=== PATIENT | female | born 1935 | race Caucasian/White ===

== ENCOUNTER → 2018-02-07 09:00 | Outpatient (CLI) | payer MEDICARE, OTHER, SELFPAY ==
[2018-02-07 09:11] LABS: Bacteria Urine None Seen; RBC Urine None Seen (0-5/HPF)
[2018-02-07 10:05] LABS: BUN Creatinine Ratio 23.3 (6-22); Blood Urea Nitrogen 21 mg/dL (7-17); Calcium 10.1 mg/dL (8.4-10.2); Carbon Dioxide 24 mmol/L (22-32); Chloride 108 mmol/L (98-107); Estimated Glomerular Filt Rate 59.8 mL/min (>60); Glucose 126 mg/dL (80-110); HEMOLYSIS < 15 (0-50); Potassium 4.2 mmol/L (3.4-5.1); Sodium 144 mmol/L (137-145)
[2018-02-07 10:11] LABS: Hemoglobin A1C% w Est Avg Glu 5.6 % (4.0-6.0)
[2018-02-07 10:17] LABS: Add Manual Diff / Slide Review NO; Basophils Percent Auto 0.8 % (0-2); Eosinophils Percent Auto 1.7 % (2-4); Hematocrit 39.1 % (36-46); Hemoglobin 12.8 g/dL (12.0-16.0); Lymphocytes Percent Auto 24.5 % (25-40); Mean Corpuscular HGB Conc 32.8 % (30-36); Mean Corpuscular Hemoglobin 30.2 PG (26-34); Mean Corpuscular Volume 92.1 fL (80-100); Monocytes Percent Auto 7.6 % (3-14); Neutrophils Absolute Auto 4300 /uL (3000-5900); Neutrophils Percent Auto 65.4 % (50-75); Platelet Count 291 X10^3/uL (150-400); Red Blood Cell Count 4.25 X10^6/uL (4.0-5.2); Red Cell Distribution Width 15.8 % (11.6-14.8); White Blood Cell Count 6.5 X10^3/uL (4.5-11.0)
[2018-02-07 11:19] LABS: Appearance Urine UA CLEAR; Bilirubin Urine UA NEGATIVE (NEGATIVE); Color Urine UA YELLOW; Glucose Urine UA NEGATIVE (Normal); Ketones Urine UA NEGATIVE (NEGATIVE); Leukocyte Esterase Urine UA TRACE (NEGATIVE); Nitrite Urine UA NEGATIVE (Negative); Occult Blood Urine UA NEGATIVE (Negative); Protein Urine UA NEGATIVE (Negative); Specific Gravity Urine UA 1.015 (1.000-1.035); Urobilinogen Urine UA 0.2 E.U./dL (0.2); pH Urine UA 6.5 (4.5-8.0)
[2018-02-07 12:01] LABS: Culture Indicated Urine Cult Not Indicated; Squamous Epithelial Cell Urine 5-10 /HPF; WBC Urine 5-10/HPF (0-5/HPF)
== END ==
PROVIDERS: Family Provider Physician Assistant; PCP Physician Assistant; Visit Provider Orthopaedic Surgery
DX: Z01.818 Encounter for other preprocedural examination (principal); Z01.812 Encounter for preprocedural laboratory examination; N39.9 Disorder of urinary system, unspecified; R73.09 Other abnormal glucose
CPT/HCPCS: 36415; 80048; 81001; 83036; 85025; 93005; 93010

== ENCOUNTER → 2018-02-11 12:44 | Outpatient (CLI) | payer MEDICARE, OTHER, SELFPAY ==
--- NOTE | 2018-02-11 | DI.MRI.S_ITS ---
PROCEDURE: MR KNEE RT WO CON INDICATIONS: UNILATERAL PRIMARY OSTEOARTHRITIS OF RIGHT KNEE TECHNIQUE: Noncontrast sagittal PD fast spin echo and T2 fast spin echo with fat saturation, sagittal 3-D FLASH with fat saturation; coronal T1 spin echo and PD fast spin echo with fat saturation, and axial PD fast spin echo with fat saturation through the knee. COMPARISON: [facility] [place], CR, XR KNEE ARTHRITIC SERIES RT, 01/19/2018, 9:58. FINDINGS: Image quality: Excellent. Menisci: Amorphous signal intensity within the medial meniscal body and posterior horn is present, demonstrating inferior articular surface extension, indicating degenerative tearing. There is severe fragmentation of the anterior and posterior horns of the lateral meniscus, compatible with severe multifocal degenerative tearing. Cruciate ligaments: The posterior cruciate ligament is intact. Anterior cruciate ligament demonstrates full thickness tearing. Medial structures: The medial collateral ligament appears intact. Visualized portions of the pes anserinus tendons appear normal. No abnormal bursal fluid. Lateral structures: The lateral collateral ligament demonstrates moderate signal loss at its femoral insertion site. The long and short heads of the biceps femoris tendon appear intact. The popliteus tendon appears normal. Iliotibial band appears normal. Anterior structures: The quadriceps and patellar tendons appear intact. Patellar alignment is normal. No femoral trochlear dysplasia or ventral trochlear prominence. No edema in the infrapatellar fat pad. Bones and cartilage: No bone marrow contusions or fractures. There is severe tricompartmental periarticular osteophyte formation. Multifocal regions of moderate to high grade articular cartilage loss overlying the weightbearing aspects of the medial femoral condyle. Mild diffuse articular cartilage loss overlies the weightbearing aspects of the medial tibial plateau. Severe diffuse articular cartilage loss overlies the weightbearing aspects of the lateral femoral condyle and lateral tibial plateau. There is focal high grade articular cartilage loss overlying the patellar apex. Joint space: There is a moderate knee joint effusion and a small Oro's cyst. Several intra-articular loose bodies are present, largest of which are in the posterior central aspect of the knee joint measuring 8 mm, as well as the lateral and superior aspect of the posterior knee joint measuring 10 mm. Normal appearing synovial plicae are incidentally noted. IMPRESSION: 1. Severe tricompartmental osteoarthritis with associated articular cartilage loss. 2. Full thickness anterior cruciate ligament tearing. 3. Medial and lateral meniscal tearing. 4. Knee joint effusion, Oro's cyst, and intra-articular loose bodies. 5. Partial-thickness lateral collateral ligament tear. Dictated by: Juan Izquierdo M.D. on 02/11/2018 at 13:48 Approved by: Juan Izquierdo M.D. on 02/11/2018 at 13:53
== END ==
PROVIDERS: Family Provider Physician Assistant; PCP Physician Assistant; Visit Provider Orthopaedic Surgery
DX: M17.11 Unilateral primary osteoarthritis, right knee (principal); M23.261 Derangement of other lateral meniscus due to old tear or injury, right knee; M23.321 Other meniscus derangements, posterior horn of medial meniscus, right knee; S83.511A Sprain of anterior cruciate ligament of right knee, initial encounter; S83.421A Sprain of lateral collateral ligament of right knee, initial encounter; M25.461 Effusion, right knee; M71.21 Synovial cyst of popliteal space [Baker], right knee
CPT/HCPCS: 73721

== ENCOUNTER → 2018-08-16 07:11 | Outpatient (CLI) | payer OTHER, SELFPAY ==
[2018-08-16 08:20] LABS: Alanine Aminotransferase 24 IU/L (9-52); Albumin 4.1 g/dL (3.5-5.0); Albumin Globulin Ratio 1.2 (1.0-2.8); Alkaline Phosphatase 129 U/L (38-126); Aspartate Aminotransferase 24 IU/L (14-36); BUN Creatinine Ratio 24.4 (6-22); Bilirubin Total 0.6 mg/dL (0.2-1.3); Blood Urea Nitrogen 22 mg/dL (7-17); Carbon Dioxide 21 mmol/L (22-32); Chloride 108 mmol/L (98-107); Cholesterol 142 mg/dL (140-199); Estimated Glomerular Filt Rate 59.7 mL/min (>60); Globulin 3.3 g/dL (1.7-4.1); Glucose 113 mg/dL (80-110); HDL Cholesterol 53 mg/dL (40-60); HEMOLYSIS < 15 (0-50); LDL Cholesterol Calculated 61 mg/dL (<100); Potassium 3.7 mmol/L (3.4-5.1); Sodium 140 mmol/L (137-145); Total Protein 7.4 g/dL (6.3-8.2); Triglycerides 141 mg/dL (35-150)
[2018-08-16 08:46] LABS: Thyroid Stimulating Hormone 2.86 uIU/mL (0.47-4.68)
[2018-08-16 08:58] LABS: Creatinine Urine Random 37.8 mg/dL
[2018-08-16 09:01] LABS: Microalbumi Creatinin Ratio Ur 42.3 ug/mg CR (<30); Microalbumin Urine Random 1.6 mg/dL (0-1.6)
== END ==
PROVIDERS: PCP Physician Assistant; Visit Provider Physician Assistant
DX: E03.9 Hypothyroidism, unspecified (principal); E78.5 Hyperlipidemia, unspecified; I10 Essential (primary) hypertension
CPT/HCPCS: 36415; 80053; 80061; 82043; 82570; 84443

== ENCOUNTER 2018-09-02 06:30 | Emergency (ER) | payer OTHER, SELFPAY ==
[2018-09-02 06:30] VITALS: BP 141/76; PULSE 128; RESP 22; TEMP 36.4; O2SAT 94; BMI 30.9
[2018-09-02 07:22] VITALS: BP 115/99; PULSE 123; RESP 17; O2SAT 97
[2018-09-02 07:58] LABS: Add Manual Diff / Slide Review NO; Basophils Absolute Auto 0 /uL (0-100); Basophils Percent Auto 0.1 % (0-2); Eosinophils Absolute Auto 0 /uL (0-450); Eosinophils Percent Auto 0.1 % (2-4); Hematocrit 36.9 % (36-46); Lymphocytes Absolute Auto 500 /uL (1100-4500); Lymphocytes Percent Auto 6.4 % (25-40); Mean Corpuscular HGB Conc 32.4 % (30-36); Mean Corpuscular Hemoglobin 26.5 PG (26-34); Mean Corpuscular Volume 81.8 fL (80-100); Monocytes Absolute Auto 300 /uL (0-900); Monocytes Percent Auto 3.2 % (3-14); Neutrophils Absolute Auto 7600 /uL (1500-7000); Neutrophils Percent Auto 90.2 % (50-75); Platelet Count 315 X10^3/uL (150-400); Red Blood Cell Count 4.51 X10^6/uL (4.0-5.2); White Blood Cell Count 8.4 X10^3/uL (4.5-11.0)
[2018-09-02 08:02] VITALS: BP 131/96; PULSE 130; RESP 25; O2SAT 94
[2018-09-02 08:06] LABS: Appearance Urine UA CLEAR; Bilirubin Urine UA NEGATIVE (NEGATIVE); Color Urine UA YELLOW; Glucose Urine UA NEGATIVE (Negative); Ketones Urine UA NEGATIVE (NEGATIVE); Leukocyte Esterase Urine UA NEGATIVE (NEGATIVE); Nitrite Urine UA NEGATIVE (Negative); Occult Blood Urine UA 3+ (Negative); Protein Urine UA NEGATIVE (Negative); Urobilinogen Urine UA 0.2 E.U./dL (0.2); pH Urine UA 7.5 (4.5-8.0)
[2018-09-02 08:08] LABS: RBC Urine 10-30/HPF (0-5/HPF); WBC Urine 1-5/HPF (0-5/HPF)
[2018-09-02 08:09] LABS: Bacteria Urine Occasional (0-1); Culture Indicated Urine Cult Not Indicated; Squamous Epithelial Cell Urine 1-5 /HPF (0-5/HPF)
--- NOTE | 2018-09-02 08:13 | ED_ITS ---
HPI - Abdominal Pain General Chief Complaint: Abdominal Pain Stated Complaint: cramping, back ache Time Seen by Provider: 09/02/18 06:59 Source: patient and family Mode of arrival: ambulatory Limitations: no limitations History of Present Illness HPI narrative: Patient is a junior 83-year-old female presenting with now resolved abdominal pain. Apparently last night she had the worse abdominal pain she ever had she felt nauseous she did not throw up but it has now completely resolved. She is noted to be in AFib with RVR which she says is not new for her. She has not taken her morning meds yet she denies any chest pain or heart palpitations. For that is not the reason why she is here. She actually says sh chana feels fine. Daughter says that she was concerned last night and brought her in the morning. Patient said she did have some blood in her urine last week but it went away. She has had regular bowel movements. She overall has no complaints this morning. MD complaint: abdominal pain Pain Consistency: now resolved Quality: cramping Radiation: none Migration to: no migration Relieving factors: nothing Exacerbating factors: nothing Related Data Home Medications Medication Instructions Recorded Confirmed ASPIRIN (Aspirin EC) 81 mg PO Q DAY #0 09/16/10 02/01/18 [PROBIOTIC] 1 cap PO QDAY #0 12/09/15 02/01/18 acetaminophen 2 tab PO PRN PRN #0 07/28/16 02/01/18 cholecalciferol (vitamin D3) 1,000 unit PO QDAY #0 07/28/16 02/01/18 [Vitamin D3] multivitamin [Multiple Vitamins] 1 tab PO QDAY #0 08/06/16 02/01/18 [POTASSIUM GLUCONATE] 1,100 mg PO QDAY #0 01/11/17 02/01/18 latanoprost 0.005 % eye drops EYE-BOTH ml 02/01/18 02/01/18 Previous Rx's Medication Instructions Recorded Ketoconazole 2 % TOPICAL QDAY #60 gm 09/21/16 chlordiazepoxide-clidinium 5 1 cap PO TID PRN #30 cap 01/10/18 mg-2.5 mg capsule metoprolol succinate ER 50 mg 25 mg PO QDAY #45 ter 01/24/18 tablet,extended release 24 hr sertraline 100 mg PO Q DAY #90 tab 03/04/18 lorazepam 0.5 mg tablet 0.25 mg PO BID #30 tab 04/04/18 rivaroxaban 20 mg tablet 20 mg PO QDAY #90 tab 04/25/18 lovastatin 40 mg tablet 40 mg PO PM #90 tab 06/27/18 diltiazem CD 180 mg 180 mg PO DAILY #90 cap 07/18/18 capsule,extended release 24 hr levothyroxine 50 mcg tablet 50 mcg PO QDAY #90 tab 08/30/18 Allergies Allergy/AdvReac Type Severity Reaction Status Date / Time venom-wasp [WASP VENOM] Allergy Intermediate HIVES Verified 02/01/18 09:06 Sulfa (Sulfonamide AdvReac Mild LIPS Verified 02/01/18 09:06 Antibiotics) TINGLING [SULFA (SULFONAMIDE ANTIBIOTICS)] Review of Systems Review of Systems ROS Unobtainable: All systems reviewed & are unremarkable except as noted in HPI and below Constitutional Denies chills, Denies fever(s), Denies lethargy and Denies weakness Eyes Denies change in vision, Denies eye discharge, Denies irritation and Denies loss of vision ENT Ears, Nose, Mouth, and Throat: Denies change in voice, Denies neck pain and D enies sore throat Cardiovascular Reports as per HPI, Denies dyspnea and Denies dyspnea on exertion Respiratory Denies cough, Denies dyspnea, Denies dyspnea on exertion and Denies wheezing Gastrointestinal Gastrointestinal: Reports as per HPI, Reports abdominal pain, Denies diarrhea, Reports nausea and Denies vomiting Genitourinary Denies hematuria, Denies flank pain, Denies urinary incontinence and Denies urinary urgency Musculoskeletal Denies neck pain Integumentary/Breasts Denies pruritus, Denies erythema, Denies rash and Denies wounds Neurologic Denies confusion, Denies loss of vision and Denies weakness Psychiatric Denies anxiety, Denies confusion, Denies depression, Denies homicidal ideation and Denies suicidal ideation Allergic/Immunologic Denies wheezing [facility] Medical History (Updated 09/02/18 @ 09:06 by Tana Young DO) Anxiety (Chronic) Atrial fibrillation (Chronic ~07/2016) Depression (Chronic) Glaucoma (Chronic) Hyperlipidemia (Chronic) Hypertension (Chronic) Hypothyroidism (Chronic) Osteoarthritis (Chronic) Basal cell carcinoma (Resolved) Chickenpox (Resolved) Measles (Resolved) Surgical History (Updated 01/15/18 @ 09:50 by Cori Parish LPN) Hx of basal cell carcinoma excision (Resolved) Family History (Updated 01/15/18 @ 09:52 by Cori Parish LPN) Father Diabetes mellitus Mother No problems noted. Grandfather No problems noted. Grandfather Diabetes mellitus Social History Smoking Status: Never smoker second hand exposure: No alcohol intake: never substance use type: does not use Family History (Updated 01/15/18 @ 09:52 by Cori Parish LPN) Father Diabetes mellitus Mother No problems noted. Grandfather No problems noted. Grandfather Diabetes mellitus Social History Smoking Status: Never smoker second hand exposure: No alcohol intake: never substance use type: does not use Exam Initial Vital Signs Initial Vital Signs: Vital Signs Temperature 97.5 F L 09/02/18 06:30 Pulse Rate 128 H 09/02/18 06:30 Respiratory Rate 22 09/02/18 06:30 Blood Pressure 141/76 H 09/02/18 06:30 Pulse Oximetry 94 09/02/18 06:30 GENERAL: Alert well-appearing very pleasant elderly female and in [no acute] distress. HEENT: Head atraumatic,EOMI, pupils reactive, CARDIOVASCULAR: Regular rate and rhythm without murmurs, rubs or gallops. RESPIRATORY: Breath sounds equal bilaterally, no wheezes rales or rhonchi. ABDOMEN: Soft, nontender. Normoactive bowel sounds all 4 quadrants. No guarding or rebound. : No CVA tenderness EXTREMITIES: Normal range of motion, no clubbing or edema. Neurovascularly intact NEUROLOGICAL: Alert and oriented x4.Normal gait and speech. Cranial nerves II through XII grossly intact. SKIN: Warm, dry, no laceration, no petechiae, no rashes or lesions. Course Orders Ordered: ED Orders 09/02/18 07:02 EKG-12 Lead Stat 09/02/18 07:50 Complete Blood Count AUTO DIFF Stat 09/02/18 07:52 Urinalysis and Microscopic Stat 09/02/18 08:15 Comprehensive Metabolic Panel Stat Lipase Stat Discontinued Medications Diltiazem HCl (Cardizem Cd) 180 mg PO NOW ONE Stop: 09/02/18 08:17 Last Admin: 09/02/18 08:31 Dose: 180 mg Metoprolol Succinate (Toprol Xl) 50 mg PO NOW ONE Stop: 09/02/18 08:17 Last Admin: 09/02/18 08:31 Dose: 50 mg Vital Signs - 8 hr 09/02/18 06:30 09/02/18 07:22 09/02/18 08:02 Temperature 97.5 F L Pulse Rate 128 H 123 H 130 H Respiratory Rate 22 17 25 H Blood Pressure 141/76 H Blood Pressure [Left Arm] 115/99 H 131/96 H Pulse Oximetry 94 97 94 09/02/18 08:31 09/02/18 09:02 09/02/18 09:21 Temperature Pulse Rate 127 H 113 H 119 H Respiratory Rate 18 18 Blood Pressure 137/89 116/93 H Blood Pressure [Left Arm] 116/93 H Pulse Oximetry 95 95 MDM - Abdominal Pain Lab Data Attestation: I reviewed the patient's lab results. Result diagrams: 09/02/18 07:50 09/02/18 08:15 Lab Results 09/02/18 09/02/18 09/02/18 Range/Units 07:50 07:52 08:15 WBC 8.4 (4.5-11.0) X10^3/uL RBC 4.51 (4.0-5.2) X10^6/uL Hgb 12.0 (12.0-16.0) g/dL Hct 36.9 (36-46) % MCV 81.8 (80-100) fL MCH 26.5 (26-34) PG MCHC 32.4 (30-36) % RDW 19.0 H (11.6-14.8) % Plt Count 315 (150-400) X10^3/uL Neut % (Auto) 90.2 H (50-75) % Lymph % (Auto) 6.4 L (25-40) % [place] % (Auto) 3.2 (3-14) % Eos % (Auto) 0.1 L (2-4) % Baso % (Auto) 0.1 (0-2) % Neut # (Auto) 7600 H (8722-3549) /uL Lymph # (Auto) 500 L (6821-8588) /uL [place] # (Auto) 300 (0-900) /uL Eos # (Auto) 0 (0-450) /uL Baso # (Auto) 0 (0-100) /uL Sodium 140 (137-145) mmol/L Potassium 4.2 (3.4-5.1) mmol/L Chloride 106 (98-107) mmol/L Carbon Dioxide 22 (22-32) mmol/L BUN 21 H (7-17) mg/dL Creatinine 0.90 (0.52-1.04) mg/dL Estimated GFR 59.7 L (>60) mL/min BUN/Creatinine Ratio 23.3 H (6-22) Glucose 142 H (80-110) mg/dL Calcium 10.3 H (8.4-10.2) mg/dL Total Bilirubin 0.7 (0.2-1.3) mg/dL AST 26 (14-36) IU/L ALT 19 (9-52) IU/L Alkaline Phosphatase 124 (38-126) U/L Total Protein 7.2 (6.3-8.2) g/dL Albumin 4.0 (3.5-5.0) g/dL Globulin 3.2 (1.7-4.1) g/dL Albumin/Globulin Ratio 1.3 (1.0-2.8) Lipase 137 (23-300) U/L Urine Color Yellow Urine Appearance Clear Urine pH 7.5 (4.5-8.0) Ur Specific [place] 1.020 (1.000-1.035) Urine Protein Negative (Negative) Urine Glucose (UA) Negative (Negative) g/dL Urine Ketones Negative (NEGATIVE) Urine Occult Blood 3+ H (Negative) Urine Nitrate Negative (Negative) Urine Bilirubin Negative (NEGATIVE) Urine Urobilinogen 0.2 (0.2) E.U./dL Ur Leukocyte Esterase Negative (NEGATIVE) Urine RBC 10-30/hpf H (0-5/HPF) Urine WBC 1-5/hpf (0-5/HPF) Ur Squamous Epith Cells 1-5 /hpf (0-5/HPF) Urine Bacteria Occasional (0-1) (None) Ur Culture Indicated? Cult not indicated Point of care testing: Urine Dip Bedside Urine Glucose Negative Bedside Urine Bilirubin - Negative Bedside Urine Ketone - Negative Urine Specific [place] 1.020 Bedside Urine Occult Blood +++ Bedside Urine pH 7.0 Bedside Urine Protein - Negative Bedside Urine Urobilinogen - Negative Bedside Urine Nitrite - Negative Bedside Urine Leukocytes +/- 15 Esterase ECG Data Attestation: I personally reviewed and interpreted this ECG as follows: Prior ECG tracings: available for review Interpretation: Atrial fibrillation rate [address] changes similar to previous EKGs MDM Narrative Medical decision making narrative: PATIENT IS GIVEN HER MORNING METOPROLOL AND CARDIZEM TO HELP CONTROL HER HEART RATE ALTHOUGH SHE IS COMPLETELY ASYMPTOMATIC. HER ABDOMINAL PAIN HAS COMPLETELY RESOLVED NOW. BLOOD WORK IS REASSURING ABDOMEN IS REASSESSED IT IS SOFT AND NONTENDER. AT THIS TIME I do not believe patient to need any imaging. I discussed this with both daughter and patient. They agree. Patient will be discharged home, on advised her to return back if her pain is worse and to come at the time of pain at which point imaging may be required. Discharge Plan Departure Patient Disposition: Home Clinical Impression: Abdominal pain Qualifiers: Abdominal location: lower abdomen, unspecified Qualified Code(s): R10.30 - Lower abdominal pain, unspecified Discharge Date/Time: 09/02/18 09:22 Interventions: ED Discharge Assessment Last Done: 09/02/18 09:21 Instructions: DI for Abdominal Pain-Adult Activity Restrictions/Additional Instructions: *You have been diagnosed with abdominal pain *What to do: At this time her blood work is reassuring. No sign of bladder infection. No further abdominal pain all at this time no imaging indicated. However if her symptoms are worsening or persisting he may require imaging. *Continue to take medications as directed -you were given metoprolol and Cardizem in the ED -please take your Xarelto and other morning medications as previously prescribed *Follow up with your primary care provider in 2-3 days *Return to ER if you should have increasing abdominal pain persistent vomiting or any new, worsening or concerning symptoms Prescriptions: No Action latanoprost [Xalatan] 0.005 % drops EYE-BOTH RF: 0 ASPIRIN (Aspirin EC) 81 mg PO Q DAY Qty: 0 RF: 0 [PROBIOTIC] 1 cap PO QDAY Qty: 0 RF: 0 acetaminophen 650 MG tablet extended release 2 tab PO PRN PRNQty: 0 RF: 0 cholecalciferol (vitamin D3) [Vitamin D3] 1,000 UNIT tablet 1,000 unit PO QDAY Qty: 0 RF: 0 multivitamin [Multiple Vitamins] 1 EACH tablet 1 tab PO QDAY Qty: 0 RF: 0 Ketoconazole 2 % Topical QDAY Qty: 60 RF: 2 [POTASSIUM GLUCONATE] 1,100 mg PO QDAY Qty: 0 RF: 0 chlordiazepoxide-clidinium [Librax (with clidinium)] 5-2.5 mg capsule 1 cap PO TID PRN (Reason: IBS) Qty: 30 RF: 3 metoprolol succinate 50 mg tablet extended release 24 hr 25 mg PO QDAY Qty: 45 RF: 0 sertraline 100 mg tablet 100 mg PO Q DAY Qty: 90 RF: 4 lorazepam [Ativan] 0.5 mg tablet 0.25 mg PO BID Qty: 30 RF: 3 rivaroxaban [Xarelto] 20 mg tablet 20 mg PO QDAY Qty: 90 RF: 0 lovastatin 40 mg tablet 40 mg PO PM Qty: 90 RF: 0 diltiazem HCl [Cartia XT] 180 mg capsule,extended release 24hr 180 mg PO DAILY Qty: 90 RF: 3 levothyroxine [Synthroid] 50 mcg tablet 50 mcg PO QDAY Qty: 90 RF: 0 Referrals: Alena Roman PA-C [Primary Care Provider] -
[2018-09-02 08:31] VITALS: BP 137/89; PULSE 127
[2018-09-02] MEDS: METOPROLOL ER 50 MG TABLET PO (08:31)
[2018-09-02] MEDS: dilTIAZem CD 180 MG CAP PO (08:31)
[2018-09-02 08:34] LABS: Alanine Aminotransferase 19 IU/L (9-52); Albumin Globulin Ratio 1.3 (1.0-2.8); Alkaline Phosphatase 124 U/L (38-126); Aspartate Aminotransferase 26 IU/L (14-36); BUN Creatinine Ratio 23.3 (6-22); Bilirubin Total 0.7 mg/dL (0.2-1.3); Blood Urea Nitrogen 21 mg/dL (7-17); Calcium 10.3 mg/dL (8.4-10.2); Carbon Dioxide 22 mmol/L (22-32); Chloride 106 mmol/L (98-107); Estimated Glomerular Filt Rate 59.7 mL/min (>60); Globulin 3.2 g/dL (1.7-4.1); Glucose 142 mg/dL (80-110); HEMOLYSIS < 15 (0-50); Lipase 137 U/L (23-300); Potassium 4.2 mmol/L (3.4-5.1); Sodium 140 mmol/L (137-145); Total Protein 7.2 g/dL (6.3-8.2)
--- NOTE | 2018-09-02 08:40 | PC.NURSE ---
Daughter is very questioning of staff. Comments made in regards to whether and IV was necessary after blood had to be redrawn. Critical of staff
[2018-09-02 09:02] VITALS: BP 116/93; PULSE 113; RESP 18; O2SAT 95
[2018-09-02 09:21] VITALS: BP 116/93; PULSE 119; RESP 18; O2SAT 95
== END 2018-09-02 09:22 | disposition home or self-care (01) ==
PROVIDERS: Emergency Provider Emergency Medicine; PCP Physician Assistant
DX: R10.30 Lower abdominal pain, unspecified (principal); I48.91 Unspecified atrial fibrillation; R11.0 Nausea
CPT/HCPCS: 36415; 36591; 80053; 81001; 81003; 83690; 85025; 93005; 93010; 99283; 99284

== ENCOUNTER → 2019-04-18 09:16 | Outpatient (CLI) | payer OTHER, SELFPAY ==
--- NOTE | 2019-04-18 09:19 | DI.RAD.S_ITS ---
PROCEDURE: XR KUB INDICATIONS: Possible kidney vs bladder stone; gross hematuria TECHNIQUE: One view of the abdomen acquired. COMPARISON: [facility], CR, CHEST 1 VIEW, 08/06/2016, 8:06. FINDINGS: Surgical changes and devices: None. Bowel: Bowel gas pattern is normal. Moderate to large amount of stool in colon. Soft tissues: No suspicious abdominal calcifications. Calcific densities in pelvis are most likely phleboliths. Visualized solid organ contours appear normal in size. Right diaphragmatic eventration. Bones: No suspicious bony lesions. IMPRESSION: Moderate to large amount of stool in colon. No definitive renal calculi. Calcific densities in pelvis are most likely phleboliths. Dictated by: Hector Gonzales M.D. on 04/18/2019 at 17:24 Approved by: Hector Gonzales M.D. on 04/18/2019 at 17:26
== END ==
PROVIDERS: PCP Physician Assistant; Visit Provider Physician Assistant
DX: R31.0 Gross hematuria (principal)
CPT/HCPCS: 74018

== ENCOUNTER → 2019-04-20 08:52 | Outpatient (CLI) | payer OTHER, SELFPAY ==
--- NOTE | 2019-04-20 08:53 | DI.US.S_ITS ---
PROCEDURE: US RENAL COMPLETE INDICATIONS: GROSS HEMATURIA TECHNIQUE: Real-time scanning was performed of the kidneys and bladder, with image documentation. COMPARISON: [facility], CR, XR KUB, 04/18/2019, 9:25. FINDINGS: Kidneys: Kidneys are normal in size. Right kidney measures 10.2 cm long; left kidney measures 10 cm long. Right renal cortical thickness is 1.1 cm; left renal cortical thickness is 0.9 cm. Renal cortical echotexture is normal. No hydronephrosis or nephrolithiasis. No suspicious solid mass lesions. Bladder: Pre-void bladder volume is 33 mL. Post-void residual is 25 mL. Pre-void images demonstrate no intraluminal masses or stones. On pre-void images, both ureteral jets are noted with color Doppler interrogation. Miscellaneous: There is a 4 mm echogenic focus seen along the course of the distal left ureter, near the ureterovesicular junction, approximately 4 mm from the bladder lumen. No free pelvic fluid. A 2 cm mobile gallstone is seen within the gallbladder. No associated sonographic Aguilar sign is elicited. IMPRESSION: There is a potential distal left ureteral stone. However, differential diagnosis includes a phlebolith. No associated hydronephrosis is seen. For further evaluation of the patient's presenting history of hematuria, please consider a dedicated hematuria protocol CT without and with contrast (assuming that there is no contraindication). Mild postvoid residual (25 cc). 2 cm gallstone incidentally noted. Dictated by: Jayy Christian M.D. on 04/20/2019 at 8:51 Approved by: Jayy Christian M.D. on 04/20/2019 at 8:55
== END ==
PROVIDERS: PCP Physician Assistant; Visit Provider Physician Assistant
DX: R31.0 Gross hematuria (principal); K80.20 Calculus of gallbladder without cholecystitis without obstruction
CPT/HCPCS: 76770

== ENCOUNTER → 2019-05-01 11:31 | Outpatient (CLI) | payer OTHER, SELFPAY ==
[2019-05-01 12:02] LABS: Alanine Aminotransferase 18 IU/L (<35); Albumin 4.2 g/dL (3.5-5.0); Albumin Globulin Ratio 1.2 (1.0-2.8); Alkaline Phosphatase 131 U/L (38-126); Aspartate Aminotransferase 29 IU/L (14-36); Bilirubin Total 0.9 mg/dL (0.2-1.3); Blood Urea Nitrogen 17 mg/dL (7-17); Calcium 10.5 mg/dL (8.4-10.2); Carbon Dioxide 26 mmol/L (22-32); Chloride 108 mmol/L (98-107); Estimated Glomerular Filt Rate 52.7 mL/min (>60); Globulin 3.4 g/dL (1.7-4.1); Glucose 113 mg/dL (80-110); HEMOLYSIS < 15 (0-50); Potassium 3.8 mmol/L (3.4-5.1); Sodium 143 mmol/L (137-145); Total Protein 7.6 g/dL (6.3-8.2)
--- NOTE | 2019-05-01 12:03 | DI.CT.S_ITS ---
PROCEDURE: CT ABDOMEN PELVIS WO/W CON INDICATIONS: HEMATURIA, NOT SPECIFIED TECHNIQUE: After the administration of oral contrast, 5 mm thick sections acquired from the diaphragms to the iliac crests. After the administration of intravenous contrast, 5 mm thick sections acquired from the diaphragms to the symphysis. 5 mm thick coronal and sagittal reformats were acquired. For radiation dose reduction, the following was used: automated exposure control, adjustment of mA and/or kV according to patient size. COMPARISON: None. FINDINGS: Image quality: Excellent. ABDOMEN: Lung bases: Lung bases are clear. Incidental note is made of a diaphragmatic defect posteriorly at the right hemidiaphragm, through which fat protrudes from the retroperitoneum cephalad into the pleural space. The defect measures up to 6 cm, the herniated fat is ovoid, free of edema, and measures up to 2.3 x 5.3 cm. eart size is normal. Solid organs: Liver is normal in size and enhancement. Gallbladder contains a 1.4 cm gallstone, without evidence of gallbladder inflammation or adjacent biliary obstruction. Biliary system is non-dilated. Pancreas enhances normally. Spleen is normal in size and enhancement. No adrenal nodules. Both kidneys are normal in size. No hydronephrosis or nephrolithiasis. Bowel and peritoneum: Stomach, small and large bowel loops are normal in caliber and wall thickness. No free fluid or air. Nodes and vessels: No retroperitoneal or mesenteric adenopathy by size criteria. Aorta and inferior vena are normal in caliber. Miscellaneous: No ventral hernias. PELVIS: Genitourinary: Bladder wall thickness is normal. Note is made, however, of abnormal thickening and heterogeneous enhancement of the endometrial space, measuring up to 1.3 x 2.0 cm at the fundus. Miscellaneous: No inguinal hernias or adenopathy. Bones: No suspicious bony lesions. No vertebral body compression fractures. IMPRESSION: 1. There is an unexpected finding of what may be a endometrial malignancy producing a mass near the fundus measuring up to 1.3 x 2.0 cm. Further assessment by pelvic ultrasound is recommended and gynecological consultation also appears warranted. No metastatic disease is seen. 2. A definite source of hematuria is not found. No urinary tract stone is identified. No urothelial mass is suspected nor is there a renal cortical mass lesion. 3. Incidental note is made of a fat-containing hernia at the posterior right hemidiaphragm through a diaphragmatic defect measuring up to 6 cm in transverse dimension, allowing a herniation of fat above the posterior border of the right diaphragm measuring up to 2.3 x 5.3 cm. There is no suspicion for incarceration or strangulation of this herniated fat. Dictated by: Venkatesh Rosales M.D. on 05/01/2019 at 14:09 Approved by: Venkatesh Rosales M.D. on 05/01/2019 at 14:16
== END ==
PROVIDERS: PCP Physician Assistant; Visit Provider Student in an Organized Health Care Education/Training Program
DX: R31.9 Hematuria, unspecified (principal); N85.9 Noninflammatory disorder of uterus, unspecified; K44.9 Diaphragmatic hernia without obstruction or gangrene; I48.19 Other persistent atrial fibrillation; E03.9 Hypothyroidism, unspecified; E78.5 Hyperlipidemia, unspecified; I10 Essential (primary) hypertension
CPT/HCPCS: 36415; 74178; 80053; Q9967

== ENCOUNTER → 2019-05-22 10:11 | Outpatient (CLI) | payer OTHER, SELFPAY ==
--- NOTE | 2019-05-22 10:12 | DI.US.S_ITS ---
PROCEDURE: US PELVIC COMPLETE INDICATIONS: PELVIC MASS SEEN ON CT ON 05/01/19 TECHNIQUE: Real-time scanning was performed of the pelvic organs, with image documentation. Additional endovaginal scanning was necessary due to incomplete visualization of the adnexal and endometrial structures by transabdominal scanning. COMPARISON: [facility], CT, CT ABDOMEN PELVIS WO/W CON, 05/01/2019, 12:58. FINDINGS: Transabdominal scanning: Limited scanning through the kidneys shows no hydronephrosis. No pathologic free abdominal or pelvic fluid. Endovaginal scanning: Uterus: Uterus is normal in size at 6.4 x 2.5 x 4.2 cm. The endometrium measures 11 mm in combined thickness. The endometrium itself appears heterogeneous. Ovaries: Neither ovary can be seen. No adnexal masses are seen. Overall scan quality is limited to bowel gas. IMPRESSION: Abnormally thickened endometrial stripe. Differential diagnosis includes endometrial neoplasm and endometrial hyperplasia. Recommend correlation with endometrial histology, as clinically appropriate. Dictated by: Jayy Christian M.D. on 05/22/2019 at 12:08 Approved by: Jayy Christian M.D. on 05/22/2019 at 12:10
== END ==
PROVIDERS: PCP Student in an Organized Health Care Education/Training Program; Referring Provider Obstetrics & Gynecology; Visit Provider Obstetrics & Gynecology
DX: R19.00 Intra-abdominal and pelvic swelling, mass and lump, unspecified site (principal); R93.89 Abnormal findings on diagnostic imaging of other specified body structures
CPT/HCPCS: 76830; 76856

== ENCOUNTER → 2020-05-21 07:01 | Outpatient (CLI) | payer OTHER, SELFPAY ==
[2020-05-21 07:37] LABS: Hematocrit 50.2 % (36-46); Hemoglobin 16.6 g/dL (12.0-16.0); Mean Corpuscular Hemoglobin 33.9 PG (26-34); Mean Corpuscular Volume 102.7 fL (80-100); Platelet Count 219 X10^3/uL (150-400); Red Blood Cell Count 4.88 X10^6/uL (4.0-5.2); Red Cell Distribution Width 13.8 % (11.6-14.8); White Blood Cell Count 6.7 X10^3/uL (4.5-11.0)
== END ==
PROVIDERS: PCP Student in an Organized Health Care Education/Training Program; Referring Provider Student in an Organized Health Care Education/Training Program; Visit Provider Internal Medicine Cardiovascular Disease
DX: I48.91 Unspecified atrial fibrillation (principal); I10 Essential (primary) hypertension
CPT/HCPCS: 36415; 85027

== ENCOUNTER → 2020-06-15 08:01 | Outpatient (CLI) | payer OTHER, SELFPAY ==
[2020-06-15 10:00] LABS: BUN Creatinine Ratio 16.3 (6-22); Blood Urea Nitrogen 15 mg/dL (7-17); Calcium 10.6 mg/dL (8.4-10.2); Carbon Dioxide 26 mmol/L (22-32); Chloride 107 mmol/L (98-107); Estimated Glomerular Filt Rate 57.9 mL/min (>60); Glucose 124 mg/dL (80-110); HEMOLYSIS < 15 (0-50); Potassium 3.5 mmol/L (3.4-5.1); Sodium 141 mmol/L (137-145)
== END ==
PROVIDERS: PCP Student in an Organized Health Care Education/Training Program; Referring Provider Internal Medicine Cardiovascular Disease; Visit Provider Internal Medicine Cardiovascular Disease
DX: I10 Essential (primary) hypertension (principal)
CPT/HCPCS: 36415; 80048

== ENCOUNTER → 2020-06-27 07:07 | Outpatient (CLI) | payer OTHER, SELFPAY ==
--- NOTE | 2020-06-27 | DI.RAD.S_ITS ---
PROCEDURE: XR CHEST 2V INDICATIONS: Chronic atrial fibrillation, unspecified TECHNIQUE: 2 views of the chest were acquired. COMPARISON: [facility], , CHEST 1 VIEW, 08/06/2016, 8:06. FINDINGS: Surgical changes and devices: None. Lungs and pleura: Lungs are mildly abnormal with a mild interstitial prominence. No pleural effusions or pneumothorax. Mediastinum: Mediastinal contours are normal. Heart size is normal. Bones and chest wall: No suspicious bony abnormalities. Soft tissues appear unremarkable. IMPRESSION: Mild interstitial prominence, possible prior smoking history. No cardiomegaly or CHF. Dictated by: Venkatesh Rosales M.D. on 06/27/2020 at 8:48 Approved by: Venkatesh Rosales M.D. on 06/27/2020 at 8:55
== END ==
PROVIDERS: PCP Student in an Organized Health Care Education/Training Program; Referring Provider Internal Medicine Cardiovascular Disease; Visit Provider Internal Medicine Cardiovascular Disease
DX: R06.02 Shortness of breath (principal); I48.20 Chronic atrial fibrillation, unspecified; I10 Essential (primary) hypertension
CPT/HCPCS: 71046

== ENCOUNTER 2020-08-18 04:51 | Emergency (ER) | payer OTHER, SELFPAY ==
[2020-08-18 04:53] VITALS: BP 126/97; PULSE 86; RESP 18; TEMP 36.5; O2SAT 94; BMI 28.6
--- NOTE | 2020-08-18 04:53 | DI.CT.S_ITS ---
PROCEDURE: CT HEAD/BRAIN WO CON INDICATIONS: glf on xerelto TECHNIQUE: Noncontrast 4.5 mm thick angled axial sections acquired from the foramen magnum to the vertex, with coronal and sagittal reformats. For radiation dose reduction, the following was used: automated exposure control, adjustment of mA and/or kV according to patient size. COMPARISON: None. FINDINGS: Image quality: Excellent. CSF spaces: Basal cisterns are patent. No extra-axial fluid collections. The ventricles are symmetric in size and shape. Brain: No intracranial bleeds or masses. There is cerebral volume loss for age, with resultant ventricular and sulcal prominence. There are periventricular and deep white matter chronic small vessel ischemic changes. There is intracranial internal carotid artery atherosclerosis. Skull and face: Calvarium and visualized facial bones appear intact, without suspicious lesions. Moderate size hematoma overlying the left frontal bone and superior orbit. Sinuses: Visualized sinuses and mastoids are clear. IMPRESSION: No acute intracranial hemorrhage or skull fracture. Senescent changes including cerebral volume loss and microvascular ischemic changes. Left frontal/supraorbital scalp hematoma. Agree with preliminary report. Dictated by: Lamont Knox D.O. on 08/18/2020 at 8:44 Approved by: Lamont Knox D.O. on 08/18/2020 at 8:46
--- NOTE | 2020-08-18 06:16 | ED.WOUNDLAC ---
HPI - Wound/Laceration <Tana Young, DO - Last Filed: 08/22/20 16:33> General Chief Complaint: Wound/Laceration Stated Complaint: GLF Time Seen by Provider: 08/18/20 05:11 Source: patient and EMS Mode of arrival: EMS Limitations: no limitations History of Present Illness HPI narrative: Patient is an 85-year-old female on [facility] who presents after ground level fall. She fell and hit her head on the nightstand. There is no loss of consciousness. She is unsure exactly how she fell. She is having pain in both of her knees no which seems to be getting worse she was actually seen by her primary care provider on 08/07/2020 for increasing pain defect over the left blood week she has needed to use her walker which previously she was not. Her daughter states that she is has generally become a little bit weaker. She has actually gone to the restroom 3 times are ready in the emergency department. However she denies any painful or frequent urination. She has no abdominal pain. She denies any numbness tingling or weakness in any of her extremities. Related Data Home Medications Medication Instructions Recorded Confirmed acetaminophen 2 tab PO PRN PRN #0 07/28/16 08/07/20 [POTASSIUM GLUCONATE] 1,100 mg PO QDAY #0 01/11/17 08/07/20 latanoprost 0.005 % eye drops EYE-BOTH ml 02/01/18 08/07/20 metoprolol succinate 50 mg 50 mg PO DAILY 03/27/19 08/07/20 tablet,extended release 24 hr Previous Rx's Medication Instructions Recorded Ketoconazole 2 % TOPICAL QDAY #60 gm 09/21/16 sertraline 100 mg tablet 100 mg PO Q DAY #90 tab 03/27/19 levothyroxine 50 mcg tablet 50 mcg PO QDAY #90 tab 06/04/20 diltiazem HCl 180 mg 180 mg PO DAILY #90 cap 07/01/20 capsule,extended release 24 hr buspirone 5 mg tablet 5 mg PO BID #180 tab 07/30/20 chlordiazepoxide-clidinium 5 1 cap PO TID #90 cap 07/31/20 mg-2.5 mg capsule rivaroxaban 15 mg tablet 15 mg PO QPM #90 tab 07/31/20 lorazepam 0.5 mg tablet 0.25 mg PO BID PRN #15 tab 08/05/20 Allergies Allergy/AdvReac Type Severity Reaction Status Date / Time venom-wasp [WASP VENOM] Allergy Intermediate HIVES Verified 08/07/20 11:34 Sulfa (Sulfonamide AdvReac Mild LIPS Verified 08/07/20 11:34 Antibiotics) TINGLING [SULFA (SULFONAMIDE ANTIBIOTICS)] Review of Systems <Tana Young DO - Last Filed: 08/22/20 16:33> Review of Systems ROS Unobtainable: All systems reviewed & are unremarkable except as noted in HPI and below Constitutional Constitutional: Denies body ache(s), Denies chills, Denies lethargy and Reports weakness ENT Ears, Nose, Mouth, and Throat: Denies change in voice, Denies vertigo, Denies dizziness, Denies neck pain and Denies sore throat Cardiovascular Cardiovascular: Denies chest pain, Denies syncope, Denies irregular heart rhythm, Denies lightheadedness, Denies palpitations, Denies dyspnea, Denies dyspnea on exertion and Denies orthopnea Respiratory Respiratory: Denies cough, Denies dyspnea, Denies dyspnea on exertion and Denies wheezing Gastrointestinal Gastrointestinal: Denies abdominal pain, Denies change in bowel habits, Denies diarrhea, Denies nausea and Denies vomiting Genitourinary Genitourinary: Reports urinary urgency Genitourinary: Reports urinary urgency Musculoskeletal Musculoskeletal: Denies neck pain Integumentary/Breasts Skin/Breast: Denies pruritus, Denies erythema, Denies rash and Denies wounds Neurologic Neurologic: Denies vertigo, Denies dizziness, Denies syncope and Reports weakness Endocrine Endocrine: Denies flushing and Denies palpitations Allergic/Immunologic Allergic/Immunologic: Denies wheezing Patient History <Tana Young DO - Last Filed: 08/22/20 16:33> Medical History Anxiety Atrial fibrillation (~07/2016) Basal cell carcinoma Basal cell carcinoma (BCC) of left side of nose (09/21/16) Chickenpox Depression Glaucoma Hyperlipidemia Hypertension Hypothyroidism Measles Urge incontinence of urine Surgical History Hx of basal cell carcinoma excision Family History Father Diabetes mellitus Mother No problems noted. Grandfather No problems noted. Grandfather Diabetes mellitus Social History Smoking Status: Never smoker second hand exposure: No alcohol intake: never substance use type: does not use Smoking Status: Never smoker Substance Use Type: does not use Exam <DO Rolo Metz Last Filed: 08/22/20 16:33> Initial Vital Signs Initial Vital Signs: Vital Signs Temperature 97.7 F 08/18/20 04:53 Pulse Rate 86 08/18/20 04:53 Respiratory Rate 18 08/18/20 04:53 Blood Pressure 126/97 H 08/18/20 04:53 Pulse Oximetry 94 08/18/20 04:53 GENERAL: Alert pleasant 85-year-old female and in no acute distress. HEENT: Head 4 cm laceration left side of forehead with contusion EOMI, pupils reactive, face symmetric, moist mucous membranes NECK: No vertebral tenderness or step offs CARDIOVASCULAR: Regular rate and rhythm without murmurs, rubs or gallops. RESPIRATORY: Breath sounds equal bilaterally, no wheezes rales or rhonchi. ABDOMEN: Soft, nontender. Normoactive bowel sounds all 4 quadrants. No guarding or rebound. EXTREMITIES: Normal range of motion, no clubbing or edema. Neurovascularly intact NEUROLOGICAL: Alert and oriented x4.Normal gait and speech. Cranial nerves II through XII grossly intact. [employer] strength equal bilaterally and sensation intact bilaterally SKIN: Warm, dry, no laceration, no petechiae, no rashes or lesions. <Delfina Wade, - Last Filed: 08/18/20 20:19> Initial Vital Signs Initial Vital Signs: Vital Signs Temperature 97.7 F 08/18/20 04:53 Pulse Rate 86 08/18/20 04:53 Respiratory Rate 18 08/18/20 04:53 Blood Pressure 126/97 H 08/18/20 04:53 Pulse Oximetry 94 08/18/20 04:53 Procedures <DO Rolo Metz Last Filed: 08/22/20 16:33> Laceration Repair Laceration 1: Site: scalp Side (If applicable): left Size (cm): 4 Description: linear Depth: simple, single layer Local Anesthetic: lidocaine 1% Amount of anesthesia used (mL): 3 Pre-repair: wound explored and irrigated extensively Skin layer closed with: nylon Size (cm): 4-0 Number of sutures: 5 Technique: simple, interrupted Course <DO Rolo Metz Last Filed: 08/22/20 16:33> Orders Ordered: ED Orders 08/18/20 04:53 CT head/brain wo con Stat 08/18/20 06:40 Complete Blood Count AUTO DIFF Stat Comprehensive Metabolic Panel Stat Procalcitonin Stat 08/18/20 06:55 Urinalysis and Microscopic Stat Vital Signs Vital signs: Vital Signs - 8 hr 08/18/20 04:53 Temperature 97.7 F Pulse Rate 86 Respiratory Rate 18 Blood Pressure 126/97 H Pulse Oximetry 94 <DO Rolo Holly Last Filed: 08/18/20 20:19> Orders Ordered: ED Orders 08/18/20 04:53 CT head/brain wo con Stat 08/18/20 06:40 Complete Blood Count AUTO DIFF Stat Comprehensive Metabolic Panel Stat Procalcitonin Stat 08/18/20 06:55 Urinalysis and Microscopic Stat Vital Signs Vital signs: Vital Signs - 8 hr 08/18/20 04:53 Temperature 97.7 F Pulse Rate 86 Respiratory Rate 18 Blood Pressure 126/97 H Pulse Oximetry 94 MDM - Wound/Laceration <DO Rolo Metz Last Filed: 08/22/20 16:33> Lab Data Result diagrams: 08/18/20 06:40 08/18/20 06:40 Labs: Lab Results 08/18/20 08/18/20 08/18/20 Range/Units 06:40 06:40 06:55 WBC 10.3 (4.5-11.0) X10^3/uL RBC 4.79 (4.0-5.2) X10^6/uL Hgb 16.3 H (12.0-16.0) g/dL Hct 48.9 H (36-46) % MCV 102.2 H (80-100) fL MCH 34.0 (26-34) PG MCHC 33.2 (30-36) % RDW 14.8 (11.6-14.8) % Plt Count 191 (150-400) X10^3/uL Neut % (Auto) 85.5 H (50-75) % Lymph % (Auto) 7.3 L (25-40) % Lea % (Auto) 6.3 (3-14) % Eos % (Auto) 0.3 L (2-4) % Baso % (Auto) 0.6 (0-2) % Neut # (Auto) 8800 H (3511-6117) /uL Lymph # (Auto) 800 L (2257-8009) /uL Lea # (Auto) 600 (0-900) /uL Eos # (Auto) 0 (0-450) /uL Baso # (Auto) 100 (0-100) /uL Sodium 140 (137-145) mmol/L Potassium 3.9 (3.4-5.1) mmol/L Chloride 110 H (98-107) mmol/L Carbon Dioxide 22 (22-32) mmol/L BUN 20 H (7-17) mg/dL Creatinine 0.77 (0.52-1.04) mg/dL Estimated GFR > 60.0 (>60) mL/min BUN/Creatinine Ratio 26.0 H (6-22) Glucose 112 H (80-110) mg/dL Calcium 10.6 H (8.4-10.2) mg/dL Total Bilirubin 1.1 (0.2-1.3) mg/dL AST 37 H (14-36) IU/L ALT 20 (<35) IU/L Alkaline Phosphatase 139 H (38-126) U/L Total Protein 7.3 (6.3-8.2) g/dL Albumin 3.7 (3.5-5.0) g/dL Globulin 3.6 (1.7-4.1) g/dL Albumin/Globulin Ratio 1.0 (1.0-2.8) Procalcitonin 0.08 (<0.5) ng/mL Urine Color Yellow Urine Appearance Clear Urine pH 5.5 (4.5-8.0) Ur Specific [place] 1.025 (1.000-1.035) Urine Protein Trace H (Negative) Urine Glucose (UA) Negative (Negative) g/dL Urine Ketones Negative (NEGATIVE) Urine Occult Blood 1+ H (Negative) Urine Nitrate Negative (Negative) Urine Bilirubin Negative (NEGATIVE) Urine Urobilinogen 0.2 (0.2) E.U./dL Ur Leukocyte Esterase Trace H (NEGATIVE) Urine RBC 0-1/hpf D (0-5/HPF) Urine WBC 1-5/hpf (0-5/HPF) Ur Squamous Epith Cells 0-1 /hpf (0-5/HPF) Calcium Oxalate Crystal Many H Urine Bacteria Few (2-10) H (None) Hyaline Casts 5-10/lpf (None) Ur Culture Indicated? Cult not indicated Imaging Data CT scan - head: Radiologist's Impression: Preliminary report No intracranial hemorrhage or mass effect MDM Narrative Medical decision making narrative: Labs are reviewed patient is actually never been hyponatremic. However with frequent urination concern for possible infection. She does have some mild blood in her urine. Signed out to Dr. Wade for further management. <Delfina Wade, DO - Last Filed: 08/18/20 20:19> Lab Data Attestation: I reviewed the patient's lab results. Labs: Lab Results 08/18/20 08/18/20 08/18/20 Range/Units 06:40 06:40 06:55 WBC 10.3 (4.5-11.0) X10^3/uL RBC 4.79 (4.0-5.2) X10^6/uL Hgb 16.3 H (12.0-16.0) g/dL Hct 48.9 H (36-46) % MCV 102.2 H (80-100) fL MCH 34.0 (26-34) PG MCHC 33.2 (30-36) % RDW 14.8 (11.6-14.8) % Plt Count 191 (150-400) X10^3/uL Neut % (Auto) 85.5 H (50-75) % Lymph % (Auto) 7.3 L (25-40) % Lea % (Auto) 6.3 (3-14) % Eos % (Auto) 0.3 L (2-4) % Baso % (Auto) 0.6 (0-2) % Neut # (Auto) 8800 H (1757-5641) /uL Lymph # (Auto) 800 L (7020-4616) /uL Lea # (Auto) 600 (0-900) /uL Eos # (Auto) 0 (0-450) /uL Baso # (Auto) 100 (0-100) /uL Sodium 140 (137-145) mmol/L Potassium 3.9 (3.4-5.1) mmol/L Chloride 110 H (98-107) mmol/L Carbon Dioxide 22 (22-32) mmol/L BUN 20 H (7-17) mg/dL Creatinine 0.77 (0.52-1.04) mg/dL Estimated GFR > 60.0 (>60) mL/min BUN/Creatinine Ratio 26.0 H (6-22) Glucose 112 H (80-110) mg/dL Calcium 10.6 H (8.4-10.2) mg/dL Total Bilirubin 1.1 (0.2-1.3) mg/dL AST 37 H (14-36) IU/L ALT 20 (<35) IU/L Alkaline Phosphatase 139 H (38-126) U/L Total Protein 7.3 (6.3-8.2) g/dL Albumin 3.7 (3.5-5.0) g/dL Globulin 3.6 (1.7-4.1) g/dL Albumin/Globulin Ratio 1.0 (1.0-2.8) Procalcitonin 0.08 (<0.5) ng/mL Urine Color Yellow Urine Appearance Clear Urine pH 5.5 (4.5-8.0) Ur Specific [place] 1.025 (1.000-1.035) Urine Protein Trace H (Negative) Urine Glucose (UA) Negative (Negative) g/dL Urine Ketones Negative (NEGATIVE) Urine Occult Blood 1+ H (Negative) Urine Nitrate Negative (Negative) Urine Bilirubin Negative (NEGATIVE) Urine Urobilinogen 0.2 (0.2) E.U./dL Ur Leukocyte Esterase Trace H (NEGATIVE) Urine RBC 0-1/hpf D (0-5/HPF) Urine WBC 1-5/hpf (0-5/HPF) Ur Squamous Epith Cells 0-1 /hpf (0-5/HPF) Calcium Oxalate Crystal Many H Urine Bacteria Few (2-10) H (None) Hyaline Casts 5-10/lpf (None) Ur Culture Indicated? Cult not indicated MDM Narrative Medical decision making narrative: Patient signed out to myself by Dr. Young for ground level fall in an anticoagulated patient. Patient's head CT was negative. Patient's laceration was repaired by Dr. Young. Labs were obtained and show a mild elevation in hemoglobin which is consistent with priors from May. Leftward shift. Elevation in chloride, BUN of 20 with a glucose of 110 and a calcium that has been persistently elevated. Patient does have some very mild liver enzyme abnormalities. Procalcitonin was ordered which was negative and urinalysis is patient has had some frequency which does not show obvious infection. After discussion with patient she states she was started on a medication for her frequency which was not an antibiotic after having a culture checked but she never took the medication because she was concerned about side effects. 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 Patient was discharged with return precautions after being seen and evaluated by myself. Patient states she feels comfortable returning home. We reviewed her labs and imaging as well as recommendations for treatment of her laceration. Discharge Plan Departure Patient Disposition: Home Clinical Impression: Facial laceration, Fall, Head injury Instructions: DI for Laceration Repair -- Simple Activity Restrictions/Additional Instructions: Follow up with your physician for recheck in the next 5-7 days for removal of sutures. You may take tylenol up to 1000mg every 8 hours as needed for pain. [employer] is an option for additional help at home or you can contact your primary care to help set up home health care. [email or web address] ([employer] website) Wound Care: Keep wound(s) clean and dry. Wash daily with soap and water only. Do not use over the counter products (alcohol or peroxide)on the wounds unless instructed by a physician. You may use topical antibiotic ointment over the laceration to help with wound healing. If wound condition worsens (increased/expanding redness, developing fluid blisters, or worsening pain), either contact your doctor for an urgent re-assessment , or return to the Emergency Department. Return to the Emergency Department for any new or worsening symptoms. Return to the ED, urgent care, or vist a primary care doctor for removal or suture or rordi Return if fever greater than 100.4 Fahrenheit, increased swelling, increasing pain or worsening symptoms such as increased discharge or spreading redness. Please return for severe headaches, altered mental status, new vision changes, persistent vomiting, new neck or back pain, new numbness, tingling or weakness in her extremities, syncope or passing out or other new or concerning symptoms. Prescriptions: No Action latanoprost [Xalatan] 0.005 % drops EYE-BOTH RF: 0 acetaminophen 650 MG tablet extended release 2 tab PO PRN PRNQty: 0 RF: 0 Ketoconazole 2 % Topical QDAY Qty: 60 RF: 2 [POTASSIUM GLUCONATE] 1,100 mg PO QDAY Qty: 0 RF: 0 levothyroxine [Synthroid] 50 mcg tablet 50 mcg PO QDAY Qty: 90 RF: 3 diltiazem HCl [Cartia XT] 180 mg capsule,extended release 24hr 180 mg PO DAILY Qty: 90 RF: 3 buspirone 5 mg tablet 5 mg PO BID Qty: 180 RF: 3 lorazepam [Ativan] 0.5 mg tablet 0.25 mg PO BID PRN (Reason: anxiety) Qty: 15 RF: 0 metoprolol succinate 50 mg tablet extended release 24 hr 50 mg PO DAILY RF: 0 sertraline 100 mg tablet 100 mg PO Q DAY Qty: 90 RF: 4 chlordiazepoxide-clidinium [Librax (with clidinium)] 5-2.5 mg capsule 1 cap PO TID Qty: 90 RF: 0 rivaroxaban 15 mg tablet 15 mg PO QPM Qty: 90 RF: 3 Referrals: Xavier Dawson MD [Primary Care Provider] -
[2020-08-18] MEDS: LIDOCAINE 1% (PF) 4 ML (06:53)
[2020-08-18 07:02] LABS: Appearance Urine UA CLEAR; Bilirubin Urine UA NEGATIVE (NEGATIVE); Color Urine UA YELLOW; Glucose Urine UA NEGATIVE (Negative); Ketones Urine UA NEGATIVE (NEGATIVE); Leukocyte Esterase Urine UA TRACE (NEGATIVE); Nitrite Urine UA NEGATIVE (Negative); Occult Blood Urine UA 1+ (Negative); Protein Urine UA TRACE (Negative); Specific Gravity Urine UA 1.025 (1.000-1.035); Urobilinogen Urine UA 0.2 E.U./dL (0.2)
[2020-08-18 07:03] LABS: pH Urine UA 5.5 (4.5-8.0)
[2020-08-18 07:03] LABS: Add Manual Diff / Slide Review NO; Basophils Absolute Auto 100 /uL (0-100); Basophils Percent Auto 0.6 % (0-2); Eosinophils Absolute Auto 0 /uL (0-450); Eosinophils Percent Auto 0.3 % (2-4); Hematocrit 48.9 % (36-46); Hemoglobin 16.3 g/dL (12.0-16.0); Lymphocytes Absolute Auto 800 /uL (1100-4500); Lymphocytes Percent Auto 7.3 % (25-40); Mean Corpuscular HGB Conc 33.2 % (30-36); Mean Corpuscular Volume 102.2 fL (80-100); Monocytes Absolute Auto 600 /uL (0-900); Monocytes Percent Auto 6.3 % (3-14); Neutrophils Absolute Auto 8800 /uL (1500-7000); Neutrophils Percent Auto 85.5 % (50-75); Platelet Count 191 X10^3/uL (150-400); Red Blood Cell Count 4.79 X10^6/uL (4.0-5.2); Red Cell Distribution Width 14.8 % (11.6-14.8); White Blood Cell Count 10.3 X10^3/uL (4.5-11.0)
[2020-08-18 07:13] LABS: Alanine Aminotransferase 20 IU/L (<35); Albumin 3.7 g/dL (3.5-5.0); Alkaline Phosphatase 139 U/L (38-126); Aspartate Aminotransferase 37 IU/L (14-36); Bilirubin Total 1.1 mg/dL (0.2-1.3); Blood Urea Nitrogen 20 mg/dL (7-17); Calcium 10.6 mg/dL (8.4-10.2); Carbon Dioxide 22 mmol/L (22-32); Chloride 110 mmol/L (98-107); Estimated Glomerular Filt Rate > 60.0 mL/min (>60); Globulin 3.6 g/dL (1.7-4.1); Glucose 112 mg/dL (80-110); Potassium 3.9 mmol/L (3.4-5.1); Sodium 140 mmol/L (137-145); Total Protein 7.3 g/dL (6.3-8.2)
[2020-08-18 07:29] LABS: Procalcitonin 0.08 ng/mL (<0.5)
[2020-08-18 07:40] LABS: Bacteria Urine Few (2-10); Calcium Oxalate Crystals Urine Many; Hyaline Casts Urine 5-10/LPF; RBC Urine 0-1/HPF (0-5/HPF); Squamous Epithelial Cell Urine 0-1 /HPF (0-5/HPF); WBC Urine 1-5/HPF (0-5/HPF)
[2020-08-18 07:41] LABS: Culture Indicated Urine Cult Not Indicated
[2020-08-18 07:42] LABS: HEMOLYSIS 56 (0-50)
[2020-08-18 08:42] VITALS: BP 139/89; PULSE 77; RESP 18; O2SAT 94
== END 2020-08-18 08:38 | disposition home or self-care (01) ==
PROVIDERS: Emergency Medicine; Emergency Provider Emergency Medicine; PCP Student in an Organized Health Care Education/Training Program
DX: S01.81XA Laceration without foreign body of other part of head, initial encounter (principal); W19.XXXA Unspecified fall, initial encounter
CPT/HCPCS: 12013; 36415; 70450; 80053; 81001; 84145; 85025; 99284

== ENCOUNTER 2020-12-21 10:35 | Inpatient (IN) | payer OTHER, SELFPAY ==
[2020-12-21] VITALS (61 sets, daily range): BP systolic 86–145; BP diastolic 57–89; PULSE 69–144; RESP 14–23; TEMP 36.3–36.4; O2SAT 90–96; BMI 27.6
--- NOTE | 2020-12-21 11:07 | DI.RAD.S_ITS ---
PROCEDURE: XR CHEST 1V INDICATIONS: suspected sepsis TECHNIQUE: One view of the chest was acquired. COMPARISON: [facility], , CHEST 1 VIEW, 08/06/2016, 8:06. [facility], , XR CHEST 2V, 06/27/2020, 7:21. FINDINGS: Surgical changes and devices: None. Lungs and pleura: Low lung volumes are noted. This causes a crowded appearance to the lung markings and limits evaluation. Mild, streaky opacities are seen at the lung bases. There is elevation of the left hemidiaphragm. Mediastinum: The cardiac contours are within normal limits. The aorta demonstrates calcification and tortuosity. Bones and chest wall: No suspicious bony lesions. Age-appropriate bony degenerative changes are seen. Mild dextroconvex scoliotic curvature is seen. Overlying soft tissues appear unremarkable. IMPRESSION: Low lung volumes with likely streaky atelectasis at the lung bases. If clinically appropriate, a short-term followup chest series (with PA and lateral views) performed in deep inspiration is suggested for further evaluation. Dictated by: Jayy Christian M.D. on 12/21/2020 at 10:51 Approved by: Jayy Christian M.D. on 12/21/2020 at 10:53
[2020-12-21 11:26] LABS: Add Manual Diff / Slide Review NO; Basophils Absolute Auto 0 /uL (0-100); Basophils Percent Auto 0.2 % (0-2); Eosinophils Absolute Auto 0 /uL (0-450); Eosinophils Percent Auto 0.1 % (2-4); Hematocrit 51.1 % (36-46); Hemoglobin 17.1 g/dL (12.0-16.0); Lymphocytes Absolute Auto 1200 /uL (1100-4500); Lymphocytes Percent Auto 7.3 % (25-40); Mean Corpuscular HGB Conc 33.5 % (30-36); Mean Corpuscular Hemoglobin 33.4 PG (26-34); Mean Corpuscular Volume 99.8 fL (80-100); Monocytes Absolute Auto 1100 /uL (0-900); Monocytes Percent Auto 6.7 % (3-14); Neutrophils Absolute Auto 14200 /uL (1500-7000); Neutrophils Percent Auto 85.7 % (50-75); Platelet Count 222 X10^3/uL (150-400); Red Blood Cell Count 5.12 X10^6/uL (4.0-5.2); Red Cell Distribution Width 13.9 % (11.6-14.8); White Blood Cell Count 16.6 X10^3/uL (4.5-11.0)
[2020-12-21 11:36] LABS: PTT Partial Thromboplastin Tim 31 SECONDS (26.4-36.2)
[2020-12-21 11:37] LABS: Lactate (Lactic Acid) 2.8 mmol/L (0.7-2.1)
[2020-12-21 11:38] LABS: Alanine Aminotransferase 26 IU/L (<35); Albumin 3.9 g/dL (3.5-5.0); Albumin Globulin Ratio 1.1 (1.0-2.8); Alkaline Phosphatase 103 U/L (38-126); Aspartate Aminotransferase 40 IU/L (14-36); BUN Creatinine Ratio 37.3 (6-22); Bilirubin Total 2.5 mg/dL (0.2-1.3); Blood Urea Nitrogen 44 mg/dL (7-17); Calcium 10.6 mg/dL (8.4-10.2); Carbon Dioxide 23 mmol/L (22-32); Chloride 105 mmol/L (98-107); Creatine Kinase 39 U/L (30-135); Estimated Glomerular Filt Rate 43.4 mL/min (>60); Globulin 3.6 g/dL (1.7-4.1); Glucose 138 mg/dL (80-110); HEMOLYSIS < 15 (0-50); Lipase 49 U/L (23-300); Potassium 3.5 mmol/L (3.4-5.1); Sodium 138 mmol/L (137-145); Total Protein 7.5 g/dL (6.3-8.2)
[2020-12-21] MEDS: ONDANSETRON 4 MG/2 ML INJ IV (11:42)
[2020-12-21] MEDS: SODIUM CHLORIDE 0.9% 1,000 ML 1000 ML IV (11:42)
[2020-12-21 11:49] LABS: Troponin I < 0.012 ng/mL (0.01-0.034)
--- NOTE | 2020-12-21 12:03 | DI.CT.S_ITS ---
PROCEDURE: CT CHEST ABD PEL W CON INDICATIONS: chest pain, nausea vomiting TECHNIQUE: After the administration of intravenous contrast, axial sections acquired from the supraclavicular neck to the pubic symphysis. Coronal and sagittal reformats were performed. For radiation dose reduction, the following was used: automated exposure control, adjustment of mA and/or kV according to patient size. COMPARISON: [facility], CT, CT ABDOMEN PELVIS WO/W CON, 05/01/2019, 12:58. [facility], CR, XR CHEST 1V, 12/21/2020, 11:09. FINDINGS: Image quality: Excellent. CHEST: Lower Neck: No enlarged lymph nodes. Thyroid: Within normal limits. Axillae: No enlarged lymph nodes. Chest Wall: Unremarkable. Lungs and Airways: Apparent dependent atelectasis can be seen at the lung bases. The previously seen right posterior diaphragmatic hernia is not seen. Pleura: No pneumothorax is seen. There are small bilateral pleural effusions. Heart: Heart size is normal. No pericardial effusion. Thoracic Vessels: The aorta and pulmonary arteries demonstrate normal size. Mediastinum and [place]: No enlarged lymph nodes. Esophagus: No wall thickening. No hiatal hernia. ABDOMEN: Liver: Unremarkable. Gallbladder: The gallbladder demonstrates a gallstone within its lumen. The gallbladder is otherwise unremarkable by CT. Biliary ducts: Unremarkable. Pancreas: Unremarkable. Spleen: Unremarkable. Adrenal Glands: Generalized thickening is seen of the adrenal glands, yet without focal nodules. Kidneys and Ureters: Unremarkable. Stomach and Bowel: Abnormally dilated loops of proximal small bowel can be seen, which measure up to 4 cm. There is focal narrowing of the small bowel seen, with focal bowel wall hyperenhancement, as on series 2, image 80 to and on series 5, image 21 within the mid abdomen. There is an apparent additional transition point seen involving the right lower quadrant, as on series 2, image 72 and on series 5, image 25. The colon is decompressed. Peritoneum: No abnormal intraperitoneal fluid. No free air. Ventral Wall: No hernia. Abdominal Nodes: No retroperitoneal or mesenteric adenopathy by size criteria. Vessels: Aorta and inferior vena cava are normal in size. PELVIS: Pelvic Organs: Unremarkable. Bladder: Unremarkable. Pelvic Nodes: No enlarged lymph nodes. Miscellaneous: No inguinal hernias are seen. Bones: Accentuated thoracic kyphosis is seen. Age-appropriate bony degenerative changes are seen, which are worst at L5-S1 IMPRESSION: Small-bowel obstruction, with 2 apparent transition points seen. Small bilateral pleural effusions are seen. Apparent dependent atelectasis. Incidental note is made of: Gallstone Generalized thickening of the adrenal glands, without focal nodules Focal L5-S1 degenerative change Dictated by: Jayy Christian M.D. on 12/21/2020 at 11:30 Approved by: Jayy Christian M.D. on 12/21/2020 at 11:38
--- NOTE | 2020-12-21 12:03 | ED.ABDPAIN ---
HPI - Abdominal Pain <Tana Young, DO - Last Filed: 12/21/20 20:24> General Chief Complaint: Abdominal Pain Stated Complaint: vomitting/ not eating or drinking Time Seen by Provider: 12/21/20 11:36 Source: patient Mode of arrival: Wheelchair Limitations: no limitations History of Present Illness HPI narrative: Patient is a 85-year-old female with history of atrial fibrillation on Xarelto presenting today with 4 days of nausea vomiting abdominal pain. She says she really does not have nausea but she has son episodes of vomiting is which are green according to the daughter. She denies any chest pain or palpitations. She has not had any fever or chills. Daughter states that she is unable to keep anything down and is not trying to eat or drink anything. Noted to be in AFib with RVR rate in the 120s and hypotensive with blood pressure 86/57. She is having some all over abdominal intermittent discomfort but no localization. Related Data Home Medications Medication Instructions Recorded Confirmed acetaminophen 650 mg 2 tab PO PRN PRN #0 07/28/16 10/08/20 tablet,extended release [POTASSIUM GLUCONATE] 1,100 mg PO QDAY #0 01/11/17 10/08/20 latanoprost 0.005 % eye drops EYE-BOTH ml 02/01/18 10/08/20 (Xalatan) metoprolol succinate 50 mg 75 mg PO BID tab 10/08/20 12/21/20 tablet,extended release 24 hr rivaroxaban 15 mg tablet 20 mg PO QPM 12/21/20 12/21/20 Previous Rx's Medication Instructions Recorded Ketoconazole 2 % TOPICAL QDAY #60 gm 09/21/16 levothyroxine 50 mcg tablet 50 mcg PO QDAY #90 tab 06/04/20 (Synthroid) diltiazem HCl 180 mg 180 mg PO DAILY #90 cap 07/01/20 capsule,extended release 24 hr (Cartia XT) buspirone 5 mg tablet 5 mg PO BID #180 tab 07/30/20 lorazepam 0.5 mg tablet (Ativan) 0.25 mg PO BID PRN #15 tab 08/05/20 oxybutynin chloride 5 mg tablet 2.5 mg PO BID #90 tab 09/03/20 sertraline 100 mg tablet 100 mg PO Q DAY #90 tab 09/03/20 chlordiazepoxide-clidinium 5 1 cap PO TID #90 cap 09/17/20 mg-2.5 mg capsule (Librax (with clidinium)) Allergies Allergy/AdvReac Type Severity Reaction Status Date / Time venom-wasp [WASP VENOM] Allergy Intermediate HIVES Verified 10/08/20 15:17 Sulfa (Sulfonamide AdvReac Mild LIPS Verified 10/08/20 15:17 Antibiotics) TINGLING [SULFA (SULFONAMIDE ANTIBIOTICS)] <Jeffrey Anderson MD - Last Filed: 12/21/20 20:56> History of Present Illness HPI narrative: Patient is a 85-year-old female with history of atrial fibrillation on Xarelto presenting today with 4 days of nausea vomiting abdominal pain. She says she really does not have nausea but she has some episodes of vomiting which are green according to the daughter. She denies any chest pain or palpitations. She has not had any fever or chills. Daughter states that she is unable to keep anything down and is not trying to eat or drink anything. Noted to be in AFib with RVR rate in the 120s and hypotensive with blood pressure 86/57. She is having some all over abdominal intermittent discomfort but no localization. Review of Systems <Tana Young DO - Last Filed: 12/21/20 20:24> Review of Systems ROS Unobtainable: All systems reviewed & are unremarkable except as noted in HPI and below Cardiovascular Cardiovascular: Denies chest pain, Reports irregular heart rhythm and Denies dyspnea Respiratory Respiratory: Denies cough and Denies dyspnea Genitourinary Genitourinary: Denies urinary incontinence and Denies urinary hesitancy Patient History <Tana Young DO - Last Filed: 12/21/20 20:24> Medical History Anxiety Atrial fibrillation (~07/2016) Basal cell carcinoma Basal cell carcinoma (BCC) of left side of nose (09/21/16) Chickenpox Depression Glaucoma Hyperlipidemia Hypertension Hypothyroidism Measles Urge incontinence of urine Surgical History Hx of basal cell carcinoma excision Family History Father Diabetes mellitus Mother No problems noted. Grandfather No problems noted. Grandfather Diabetes mellitus Social History Smoking Status: Never smoker second hand exposure: No alcohol intake: never substance use type: does not use Smoking Status: Never smoker alcohol intake frequency: 0-2 drinks per day Substance Use Type: does not use Exam <Tana Young DO - Last Filed: 12/21/20 20:24> Initial Vital Signs Initial Vital Signs: Vital Signs Temperature 97.4 F L 12/21/20 11:03 Pulse Rate 122 H 12/21/20 11:03 Respiratory Rate 18 12/21/20 11:03 Blood Pressure 86/57 L 12/21/20 11:03 Pulse Oximetry 95 12/21/20 11:03 GENERAL: Awake alert 85-year-old femaleand in [no acute] distress. HEENT: Head atraumatic,EOMI, pupils reactive, face symmetric, drymucous membranes CARDIOVASCULAR: Irregularly irregular tachycardic RESPIRATORY: Breath sounds equal bilaterally, no wheezes rales or rhonchi. ABDOMEN: Soft, mild epigastric pain no right upper quadrant pain no guarding or rebound no distention EXTREMITIES: Normal range of motion, no clubbing or edema. Neurovascularly intact NEUROLOGICAL: Alert and oriented x4. SKIN: Warm, dry, no laceration, no petechiae, no rashes or lesions. <Jeffrey Anderson MD - Last Filed: 12/21/20 20:56> Initial Vital Signs Initial Vital Signs: Vital Signs Temperature 97.4 F L 12/21/20 11:03 Pulse Rate 122 H 12/21/20 11:03 Respiratory Rate 18 12/21/20 11:03 Blood Pressure 86/57 L 12/21/20 11:03 Pulse Oximetry 95 12/21/20 11:03 Course <Tana Young DO - Last Filed: 12/21/20 20:24> Orders Ordered: ED Orders 12/21/20 12:03 CT chest abd pel w con Stat 12/21/20 12:25 COVID19 - ADMIT (COMBER TENDER swab/PCR) Stat 12/21/20 12:33 US abdomen limited Stat 12/21/20 14:43 Urine Culture Stat Urine Microscopic Stat 12/21/20 14:51 MR abdomen wo con Stat Sodium Chloride (Normal Saline 0.9%) 1,000 mls @ 150 mls/hr IV CONT TONIE Last Admin: 12/21/20 19:22 Dose: 150 mls/hr Documented by: МАРИЯ Discontinued Medications Sodium Chloride (Normal Saline 0.9%) 1,000 mls @ 1,000 mls/hr IV BOLUS ONE Stop: 12/21/20 12:06 Last Infusion: 12/21/20 13:22 Dose: 0 mls/hr Documented by: МАРИЯ Admin: 12/21/20 11:42 Dose: 1,000 mls/hr Documented by: JULIAN Piperacillin Sod/Tazobactam (Sod 4.5 gm/ Sodium Chloride) 100 mls @ 200 mls/hr IV NOW ONE Stop: 12/21/20 13:07 Last Infusion: 12/21/20 15:14 Dose: 0 mls/hr Documented by: МАРИЯ Admin: 12/21/20 13:31 Dose: 200 mls/hr Documented by: МАРИЯ Lidocaine HCl (Lidocaine 2% (Glydo) 6 Ml Gel) 6 ml TOP NOW ONE Stop: 12/21/20 19:52 Last Admin: 12/21/20 20:15 Dose: 6 ml Documented by: ADIS Ondansetron HCl (Ondansetron 4 Mg/2 Ml Inj) 4 mg IV NOW ONE Stop: 12/21/20 11:08 Last Admin: 12/21/20 11:42 Dose: 4 mg Documented by: JULIAN Pantoprazole Sodium (Pantoprazole 40 Mg Vial) 40 mg IV NOW ONE Stop: 12/21/20 12:04 Last Admin: 12/21/20 12:31 Dose: 40 mg Documented by: JULIAN Vital Signs Vital signs: Vital Signs - 8 hr 12/21/20 13:00 12/21/20 13:10 12/21/20 13:20 Pulse Rate 109 H 130 H 126 H Respiratory Rate 19 20 19 Blood Pressure Pulse Oximetry 93 92 94 12/21/20 13:30 12/21/20 13:40 12/21/20 13:50 Pulse Rate 117 H 133 H 134 H Respiratory Rate 20 18 20 Blood Pressure Pulse Oximetry 92 91 93 12/21/20 14:00 12/21/20 14:10 12/21/20 14:20 Pulse Rate 118 H 121 H 116 H Respiratory Rate 22 19 18 Blood Pressure 130/78 124/68 Pulse Oximetry 92 92 92 12/21/20 14:30 12/21/20 14:41 12/21/20 14:43 Pulse Rate 116 H 140 H 115 H Respiratory Rate 16 19 Blood Pressure 131/87 Pulse Oximetry 92 95 93 12/21/20 14:50 12/21/20 15:00 12/21/20 15:10 Pulse Rate 114 H 140 H 139 H Respiratory Rate 20 17 14 Blood Pressure 120/72 108/73 108/81 Pulse Oximetry 93 92 92 12/21/20 15:20 12/21/20 15:30 12/21/20 15:40 Pulse Rate 123 H 134 H 129 H Respiratory Rate 18 18 18 Blood Pressure 111/81 106/84 109/77 Pulse Oximetry 93 91 91 12/21/20 15:50 12/21/20 16:00 12/21/20 16:10 Pulse Rate 129 H 137 H 124 H Respiratory Rate 18 16 18 Blood Pressure 103/74 109/75 Pulse Oximetry 92 93 90 L 12/21/20 17:02 12/21/20 17:10 12/21/20 17:20 Pulse Rate 69 107 H 135 H Respiratory Rate 16 17 Blood Pressure Pulse Oximetry 91 91 92 12/21/20 17:30 12/21/20 17:40 12/21/20 17:50 Pulse Rate 122 H 104 H 123 H Respiratory Rate 18 17 15 Blood Pressure Pulse Oximetry 92 92 92 12/21/20 18:00 12/21/20 18:10 12/21/20 18:20 Pulse Rate 111 H 116 H 122 H Respiratory Rate 19 20 19 Blood Pressure Pulse Oximetry 92 92 93 12/21/20 18:30 12/21/20 18:40 12/21/20 18:50 Pulse Rate 133 H 130 H 141 H Respiratory Rate 15 16 20 Blood Pressure Pulse Oximetry 94 12/21/20 18:59 12/21/20 19:00 12/21/20 19:20 Pulse Rate 139 H 129 H 126 H Respiratory Rate 17 19 19 Blood Pressure 110/72 Pulse Oximetry 94 95 92 12/21/20 19:24 Pulse Rate Respiratory Rate Blood Pressure 118/87 Pulse Oximetry <Jeffrey Anderson MD - Last Filed: 12/21/20 20:56> Orders Ordered: ED Orders 12/21/20 12:03 CT chest abd pel w con Stat 12/21/20 12:25 COVID19 - ADMIT (COMBER TENDER swab/PCR) Stat 12/21/20 12:33 US abdomen limited Stat 12/21/20 14:43 Urine Culture Stat Urine Microscopic Stat 12/21/20 14:51 MR abdomen wo con Stat Sodium Chloride (Normal Saline 0.9%) 1,000 mls @ 150 mls/hr IV CONT TONIE Last Admin: 12/21/20 19:22 Dose: 150 mls/hr Documented by: МАРИЯ Discontinued Medications Sodium Chloride (Normal Saline 0.9%) 1,000 mls @ 1,000 mls/hr IV BOLUS ONE Stop: 12/21/20 12:06 Last Infusion: 12/21/20 13:22 Dose: 0 mls/hr Documented by: МАРИЯ Admin: 12/21/20 11:42 Dose: 1,000 mls/hr Documented by: JULIAN Piperacillin Sod/Tazobactam (Sod 4.5 gm/ Sodium Chloride) 100 mls @ 200 mls/hr IV NOW ONE Stop: 12/21/20 13:07 Last Infusion: 12/21/20 15:14 Dose: 0 mls/hr Documented by: МАРИЯ Admin: 12/21/20 13:31 Dose: 200 mls/hr Documented by: МАРИЯ Lidocaine HCl (Lidocaine 2% (Glydo) 6 Ml Gel) 6 ml TOP NOW ONE Stop: 12/21/20 19:52 Last Admin: 12/21/20 20:15 Dose: 6 ml Documented by: ADIS Ondansetron HCl (Ondansetron 4 Mg/2 Ml Inj) 4 mg IV NOW ONE Stop: 12/21/20 11:08 Last Admin: 12/21/20 11:42 Dose: 4 mg Documented by: JULIAN Pantoprazole Sodium (Pantoprazole 40 Mg Vial) 40 mg IV NOW ONE Stop: 12/21/20 12:04 Last Admin: 12/21/20 12:31 Dose: 40 mg Documented by: JULIAN Vital Signs Vital signs: Vital Signs - 8 hr 12/21/20 13:00 12/21/20 13:10 12/21/20 13:20 Pulse Rate 109 H 130 H 126 H Respiratory Rate 19 20 19 Blood Pressure Pulse Oximetry 93 92 94 12/21/20 13:30 12/21/20 13:40 12/21/20 13:50 Pulse Rate 117 H 133 H 134 H Respiratory Rate 20 18 20 Blood Pressure Pulse Oximetry 92 91 93 12/21/20 14:00 12/21/20 14:10 12/21/20 14:20 Pulse Rate 118 H 121 H 116 H Respiratory Rate 22 19 18 Blood Pressure 130/78 124/68 Pulse Oximetry 92 92 92 12/21/20 14:30 12/21/20 14:41 12/21/20 14:43 Pulse Rate 116 H 140 H 115 H Respiratory Rate 16 19 Blood Pressure 131/87 Pulse Oximetry 92 95 93 12/21/20 14:50 12/21/20 15:00 12/21/20 15:10 Pulse Rate 114 H 140 H 139 H Respiratory Rate 20 17 14 Blood Pressure 120/72 108/73 108/81 Pulse Oximetry 93 92 92 12/21/20 15:20 12/21/20 15:30 12/21/20 15:40 Pulse Rate 123 H 134 H 129 H Respiratory Rate 18 18 18 Blood Pressure 111/81 106/84 109/77 Pulse Oximetry 93 91 91 12/21/20 15:50 12/21/20 16:00 12/21/20 16:10 Pulse Rate 129 H 137 H 124 H Respiratory Rate 18 16 18 Blood Pressure 103/74 109/75 Pulse Oximetry 92 93 90 L 12/21/20 17:02 12/21/20 17:10 12/21/20 17:20 Pulse Rate 69 107 H 135 H Respiratory Rate 16 17 Blood Pressure Pulse Oximetry 91 91 92 12/21/20 17:30 12/21/20 17:40 12/21/20 17:50 Pulse Rate 122 H 104 H 123 H Respiratory Rate 18 17 15 Blood Pressure Pulse Oximetry 92 92 92 12/21/20 18:00 12/21/20 18:10 12/21/20 18:20 Pulse Rate 111 H 116 H 122 H Respiratory Rate 19 20 19 Blood Pressure Pulse Oximetry 92 92 93 12/21/20 18:30 12/21/20 18:40 12/21/20 18:50 Pulse Rate 133 H 130 H 141 H Respiratory Rate 15 16 20 Blood Pressure Pulse Oximetry 94 12/21/20 18:59 12/21/20 19:00 12/21/20 19:20 Pulse Rate 139 H 129 H 126 H Respiratory Rate 17 19 19 Blood Pressure 110/72 Pulse Oximetry 94 95 92 12/21/20 19:24 Pulse Rate Respiratory Rate Blood Pressure 118/87 Pulse Oximetry MDM - Abdominal Pain <Tana DO Hector - Last Filed: 12/21/20 20:24> Lab Data Result diagrams: 12/21/20 11:15 12/21/20 11:15 Labs: Lab Results 12/21/20 12/21/20 12/21/20 Range/Units 11:15 11:15 11:15 WBC 16.6 H (4.5-11.0) X10^3/uL RBC 5.12 (4.0-5.2) X10^6/uL Hgb 17.1 H (12.0-16.0) g/dL Hct 51.1 H (36-46) % MCV 99.8 (80-100) fL MCH 33.4 (26-34) PG MCHC 33.5 (30-36) % RDW 13.9 (11.6-14.8) % Plt Count 222 (150-400) X10^3/uL Neut % (Auto) 85.7 H (50-75) % Lymph % (Auto) 7.3 L (25-40) % [place] % (Auto) 6.7 (3-14) % Eos % (Auto) 0.1 L (2-4) % Baso % (Auto) 0.2 (0-2) % Neut # (Auto) 14723 H (0032-0789) /uL Lymph # (Auto) 1200 (6374-7987) /uL [place] # (Auto) 1100 H (0-900) /uL Eos # (Auto) 0 (0-450) /uL Baso # (Auto) 0 (0-100) /uL APTT 31 (26.4-36.2) SECONDS Sodium 138 (137-145) mmol/L Potassium 3.5 (3.4-5.1) mmol/L Chloride 105 (98-107) mmol/L Carbon Dioxide 23 (22-32) mmol/L BUN 44 H (7-17) mg/dL Creatinine 1.18 H (0.52-1.04) mg/dL Estimated GFR 43.4 L (>60) mL/min BUN/Creatinine Ratio 37.3 H (6-22) Glucose 138 H (80-110) mg/dL Lactate (0.7-2.1) mmol/L Calcium 10.6 H (8.4-10.2) mg/dL Total Bilirubin 2.5 H (0.2-1.3) mg/dL AST 40 H (14-36) IU/L ALT 26 (<35) IU/L Alkaline Phosphatase 103 (38-126) U/L Total Creatine Kinase 39 (30-135) U/L CK-MB (CK-2) TNP CK-MB (CK-2) Rel Index TNP Troponin I < 0.012 (0.01-0.034) ng/mL NT-Pro-B Natriuret Pep (<450) pg/mL Total Protein 7.5 (6.3-8.2) g/dL Albumin 3.9 (3.5-5.0) g/dL Globulin 3.6 (1.7-4.1) g/dL Albumin/Globulin Ratio 1.1 (1.0-2.8) Lipase 49 (23-300) U/L Urine RBC (0-5/HPF) Urine WBC (0-5/HPF) Ur Squamous Epith Cells (0-5/HPF) Uric Acid Crystals (None) Amorphous Sediment Urine Bacteria (None) Urine Mucus (Negative) Ur Culture Indicated? SARS-CoV-2 (PCR) (Negative) 12/21/20 12/21/20 12/21/20 Range/Units 11:15 11:15 12:25 WBC (4.5-11.0) X10^3/uL RBC (4.0-5.2) X10^6/uL Hgb (12.0-16.0) g/dL Hct (36-46) % MCV (80-100) fL MCH (26-34) PG MCHC (30-36) % RDW (11.6-14.8) % Plt Count (150-400) X10^3/uL Neut % (Auto) (50-75) % Lymph % (Auto) (25-40) % [place] % (Auto) (3-14) % Eos % (Auto) (2-4) % Baso % (Auto) (0-2) % Neut # (Auto) (3392-6547) /uL Lymph # (Auto) (3251-3958) /uL [place] # (Auto) (0-900) /uL Eos # (Auto) (0-450) /uL Baso # (Auto) (0-100) /uL APTT (26.4-36.2) SECONDS Sodium (137-145) mmol/L Potassium (3.4-5.1) mmol/L Chloride (98-107) mmol/L Carbon Dioxide (22-32) mmol/L BUN (7-17) mg/dL Creatinine (0.52-1.04) mg/dL Estimated GFR (>60) mL/min BUN/Creatinine Ratio (6-22) Glucose (80-110) mg/dL Lactate 2.8 H (0.7-2.1) mmol/L Calcium (8.4-10.2) mg/dL Total Bilirubin (0.2-1.3) mg/dL AST (14-36) IU/L ALT (<35) IU/L Alkaline Phosphatase (38-126) U/L Total Creatine Kinase (30-135) U/L CK-MB (CK-2) CK-MB (CK-2) Rel Index Troponin I (0.01-0.034) ng/mL NT-Pro-B Natriuret Pep 2350 H (<450) pg/mL Total Protein (6.3-8.2) g/dL Albumin (3.5-5.0) g/dL Globulin (1.7-4.1) g/dL Albumin/Globulin Ratio (1.0-2.8) Lipase (23-300) U/L Urine RBC (0-5/HPF) Urine WBC (0-5/HPF) Ur Squamous Epith Cells (0-5/HPF) Uric Acid Crystals (None) Amorphous Sediment Urine Bacteria (None) Urine Mucus (Negative) Ur Culture Indicated? SARS-CoV-2 (PCR) Negative (Negative) 12/21/20 12/21/20 Range/Units 14:04 14:43 WBC (4.5-11.0) X10^3/uL RBC (4.0-5.2) X10^6/uL Hgb (12.0-16.0) g/dL Hct (36-46) % MCV (80-100) fL MCH (26-34) PG MCHC (30-36) % RDW (11.6-14.8) % Plt Count (150-400) X10^3/uL Neut % (Auto) (50-75) % Lymph % (Auto) (25-40) % [place] % (Auto) (3-14) % Eos % (Auto) (2-4) % Baso % (Auto) (0-2) % Neut # (Auto) (2295-1234) /uL Lymph # (Auto) (1913-3321) /uL [place] # (Auto) (0-900) /uL Eos # (Auto) (0-450) /uL Baso # (Auto) (0-100) /uL APTT (26.4-36.2) SECONDS Sodium (137-145) mmol/L Potassium (3.4-5.1) mmol/L Chloride (98-107) mmol/L Carbon Dioxide (22-32) mmol/L BUN (7-17) mg/dL Creatinine (0.52-1.04) mg/dL Estimated GFR (>60) mL/min BUN/Creatinine Ratio (6-22) Glucose (80-110) mg/dL Lactate 1.9 (0.7-2.1) mmol/L Calcium (8.4-10.2) mg/dL Total Bilirubin (0.2-1.3) mg/dL AST (14-36) IU/L ALT (<35) IU/L Alkaline Phosphatase (38-126) U/L Total Creatine Kinase (30-135) U/L CK-MB (CK-2) CK-MB (CK-2) Rel Index Troponin I (0.01-0.034) ng/mL NT-Pro-B Natriuret Pep (<450) pg/mL Total Protein (6.3-8.2) g/dL Albumin (3.5-5.0) g/dL Globulin (1.7-4.1) g/dL Albumin/Globulin Ratio (1.0-2.8) Lipase (23-300) U/L Urine RBC None seen (0-5/HPF) Urine WBC 5-10/hpf H (0-5/HPF) Ur Squamous Epith Cells 1-5 /hpf (0-5/HPF) Uric Acid Crystals Few H (None) Amorphous Sediment 1+ Urine Bacteria Moderate (10-30) H (None) Urine Mucus 2+ H (Negative) Ur Culture Indicated? Specimen cultured SARS-CoV-2 (PCR) (Negative) Point of care testing: Urine Dip Bedside Urine Glucose Negative Bedside Urine Bilirubin - Negative Bedside Urine Ketone - Negative Urine Specific [place] 1.020 Bedside Urine Occult Blood - Negative Bedside Urine pH 6 Bedside Urine Protein +/- 15 Bedside Urine Urobilinogen - Negative Bedside Urine Nitrite - Negative Bedside Urine Leukocytes - Negative Esterase MDM Narrative Medical decision making narrative: The patient is found have a small bowel obstruction with [address] Prior surgery includes umbilical hernia repair. She has been vomiting for 4 days initially hypotensive in AFib with RVR. Heart rate actually improved with fluids along with blood pressure. BNP is elevated however she is not showing any sign of congestive heart failure in is not significantly fluid overloaded in fact she is likely dry secondary to vomiting. She is found have elevated bilirubin of 2.5 with mild elevation of ALT. Ultrasound does show gall stone. MRCP is needed to determine if there is common bile duct issue. If common bile duct blockage patient will need to be transferred which is very difficult during this time bed placement is extremely hard secondary to COVID pandemic. MRCP does not show any common bile duct blockage. Surgery Dr. Anderson has been involved he has reviewed her CT and MRCP agrees for patient to stay in hospital. He is requesting patient be admitted to hospitalist for AFib with RVR management Dr. Appiah updated patient's symptoms and test results and surgery recommendations. Lots of discussion with patient and family in regards to treatment. The wait likely whole conservative treatment and would like to avoid surgery at all possible cause. She is not a good surgical candidate. She is needing NG tube for her small-bowel obstruction. She is hesitant but does eventually agree. <Jeffrey Anderson MD - Last Filed: 12/21/20 20:56> Lab Data Labs: Lab Results 12/21/20 12/21/20 12/21/20 Range/Units 11:15 11:15 11:15 WBC 16.6 H (4.5-11.0) X10^3/uL RBC 5.12 (4.0-5.2) X10^6/uL Hgb 17.1 H (12.0-16.0) g/dL Hct 51.1 H (36-46) % MCV 99.8 (80-100) fL MCH 33.4 (26-34) PG MCHC 33.5 (30-36) % RDW 13.9 (11.6-14.8) % Plt Count 222 (150-400) X10^3/uL Neut % (Auto) 85.7 H (50-75) % Lymph % (Auto) 7.3 L (25-40) % [place] % (Auto) 6.7 (3-14) % Eos % (Auto) 0.1 L (2-4) % Baso % (Auto) 0.2 (0-2) % Neut # (Auto) 24181 H (7569-8338) /uL Lymph # (Auto) 1200 (5093-9955) /uL [place] # (Auto) 1100 H (0-900) /uL Eos # (Auto) 0 (0-450) /uL Baso # (Auto) 0 (0-100) /uL APTT 31 (26.4-36.2) SECONDS Sodium 138 (137-145) mmol/L Potassium 3.5 (3.4-5.1) mmol/L Chloride 105 (98-107) mmol/L Carbon Dioxide 23 (22-32) mmol/L BUN 44 H (7-17) mg/dL Creatinine 1.18 H (0.52-1.04) mg/dL Estimated GFR 43.4 L (>60) mL/min BUN/Creatinine Ratio 37.3 H (6-22) Glucose 138 H (80-110) mg/dL Lactate (0.7-2.1) mmol/L Calcium 10.6 H (8.4-10.2) mg/dL Total Bilirubin 2.5 H (0.2-1.3) mg/dL AST 40 H (14-36) IU/L ALT 26 (<35) IU/L Alkaline Phosphatase 103 (38-126) U/L Total Creatine Kinase 39 (30-135) U/L CK-MB (CK-2) TNP CK-MB (CK-2) Rel Index TNP Troponin I < 0.012 (0.01-0.034) ng/mL NT-Pro-B Natriuret Pep (<450) pg/mL Total Protein 7.5 (6.3-8.2) g/dL Albumin 3.9 (3.5-5.0) g/dL Globulin 3.6 (1.7-4.1) g/dL Albumin/Globulin Ratio 1.1 (1.0-2.8) Lipase 49 (23-300) U/L Urine RBC (0-5/HPF) Urine WBC (0-5/HPF) Ur Squamous Epith Cells (0-5/HPF) Uric Acid Crystals (None) Amorphous Sediment Urine Bacteria (None) Urine Mucus (Negative) Ur Culture Indicated? SARS-CoV-2 (PCR) (Negative) 12/21/20 12/21/20 12/21/20 Range/Units 11:15 11:15 12:25 WBC (4.5-11.0) X10^3/uL RBC (4.0-5.2) X10^6/uL Hgb (12.0-16.0) g/dL Hct (36-46) % MCV (80-100) fL MCH (26-34) PG MCHC (30-36) % RDW (11.6-14.8) % Plt Count (150-400) X10^3/uL Neut % (Auto) (50-75) % Lymph % (Auto) (25-40) % [place] % (Auto) (3-14) % Eos % (Auto) (2-4) % Baso % (Auto) (0-2) % Neut # (Auto) (9669-4416) /uL Lymph # (Auto) (5124-6420) /uL [place] # (Auto) (0-900) /uL Eos # (Auto) (0-450) /uL Baso # (Auto) (0-100) /uL APTT (26.4-36.2) SECONDS Sodium (137-145) mmol/L Potassium (3.4-5.1) mmol/L Chloride (98-107) mmol/L Carbon Dioxide (22-32) mmol/L BUN (7-17) mg/dL Creatinine (0.52-1.04) mg/dL Estimated GFR (>60) mL/min BUN/Creatinine Ratio (6-22) Glucose (80-110) mg/dL Lactate 2.8 H (0.7-2.1) mmol/L Calcium (8.4-10.2) mg/dL Total Bilirubin (0.2-1.3) mg/dL AST (14-36) IU/L ALT (<35) IU/L Alkaline Phosphatase (38-126) U/L Total Creatine Kinase (30-135) U/L CK-MB (CK-2) CK-MB (CK-2) Rel Index Troponin I (0.01-0.034) ng/mL NT-Pro-B Natriuret Pep 2350 H (<450) pg/mL Total Protein (6.3-8.2) g/dL Albumin (3.5-5.0) g/dL Globulin (1.7-4.1) g/dL Albumin/Globulin Ratio (1.0-2.8) Lipase (23-300) U/L Urine RBC (0-5/HPF) Urine WBC (0-5/HPF) Ur Squamous Epith Cells (0-5/HPF) Uric Acid Crystals (None) Amorphous Sediment Urine Bacteria (None) Urine Mucus (Negative) Ur Culture Indicated? SARS-CoV-2 (PCR) Negative (Negative) 12/21/20 12/21/20 Range/Units 14:04 14:43 WBC (4.5-11.0) X10^3/uL RBC (4.0-5.2) X10^6/uL Hgb (12.0-16.0) g/dL Hct (36-46) % MCV (80-100) fL MCH (26-34) PG MCHC (30-36) % RDW (11.6-14.8) % Plt Count (150-400) X10^3/uL Neut % (Auto) (50-75) % Lymph % (Auto) (25-40) % [place] % (Auto) (3-14) % Eos % (Auto) (2-4) % Baso % (Auto) (0-2) % Neut # (Auto) (0917-3546) /uL Lymph # (Auto) (9318-1696) /uL [place] # (Auto) (0-900) /uL Eos # (Auto) (0-450) /uL Baso # (Auto) (0-100) /uL APTT (26.4-36.2) SECONDS Sodium (137-145) mmol/L Potassium (3.4-5.1) mmol/L Chloride (98-107) mmol/L Carbon Dioxide (22-32) mmol/L BUN (7-17) mg/dL Creatinine (0.52-1.04) mg/dL Estimated GFR (>60) mL/min BUN/Creatinine Ratio (6-22) Glucose (80-110) mg/dL Lactate 1.9 (0.7-2.1) mmol/L Calcium (8.4-10.2) mg/dL Total Bilirubin (0.2-1.3) mg/dL AST (14-36) IU/L ALT (<35) IU/L Alkaline Phosphatase (38-126) U/L Total Creatine Kinase (30-135) U/L CK-MB (CK-2) CK-MB (CK-2) Rel Index Troponin I (0.01-0.034) ng/mL NT-Pro-B Natriuret Pep (<450) pg/mL Total Protein (6.3-8.2) g/dL Albumin (3.5-5.0) g/dL Globulin (1.7-4.1) g/dL Albumin/Globulin Ratio (1.0-2.8) Lipase (23-300) U/L Urine RBC None seen (0-5/HPF) Urine WBC 5-10/hpf H (0-5/HPF) Ur Squamous Epith Cells 1-5 /hpf (0-5/HPF) Uric Acid Crystals Few H (None) Amorphous Sediment 1+ Urine Bacteria Moderate (10-30) H (None) Urine Mucus 2+ H (Negative) Ur Culture Indicated? Specimen cultured SARS-CoV-2 (PCR) (Negative) Point of care testing: Urine Dip Bedside Urine Glucose Negative Bedside Urine Bilirubin - Negative Bedside Urine Ketone - Negative Urine Specific [place] 1.020 Bedside Urine Occult Blood - Negative Bedside Urine pH 6 Bedside Urine Protein +/- 15 Bedside Urine Urobilinogen - Negative Bedside Urine Nitrite - Negative Bedside Urine Leukocytes - Negative Esterase Discharge Plan Departure Patient Disposition: Admitted As Inpatient Clinical Impression: Small bowel obstruction, Atrial fibrillation with rapid ventricular response
[2020-12-21 12:29] LABS: NT-proBNP (BNP-Adult 18+) 2350 pg/mL (<450)
[2020-12-21] MEDS: PANTOPRAZOLE 40 MG VIAL IV (12:31)
--- NOTE | 2020-12-21 12:33 | DI.US.S_ITS ---
PROCEDURE: US ABDOMEN LIMITED INDICATIONS: ELEVATED BILIRUBIN TECHNIQUE: Real-time focused scanning was performed of the abdomen, with image documentation. COMPARISON: [facility], CT, CT CHEST ABD PEL W CON, 12/21/2020, 12:13. FINDINGS: Evaluation of the liver is limited. No focal liver lesions are seen. A nonmobile gallstone can be seen within the gallbladder fundus that measures up to 1.4 cm. The gallbladder wall is minimally thickened at 3.6 mm. No specific pericholecystic fluid is seen. The sonographic Aguilar sign is negative. There is no biliary dilatation, the common bile duct measures 6 mm. The pancreas is not well seen, secondary to overlying bowel gas. A trace of right upper quadrant free fluid can be seen. Note is made of prominent fluid-filled bowel, which is better demonstrated on the recent CT examination. IMPRESSION: A nonmobile gallstone can be seen within the gallbladder, with minimal gallbladder wall thickening. No additional sonographic signs of cholecystitis can be seen. No biliary dilatation. Dictated by: Jayy Christian M.D. on 12/21/2020 at 13:11 Approved by: Jayy Christian M.D. on 12/21/2020 at 13:13
[2020-12-21 13:21] LABS: Reflexed Lactate in 2 Hours Y
[2020-12-21] MEDS: PIPERACILLIN/TAZO 4.5 GM in SODIUM CHLORIDE 0.9% 100 ML 200 ML IV (13:31)
[2020-12-21 13:32] LABS: COVID19 - ADMIT (NP swab/PCR) Negative (Negative)
[2020-12-21 14:21] LABS: Lactate 2HR (Lactic Acid Rflx) 1.9 mmol/L (0.7-2.1)
--- NOTE | 2020-12-21 14:51 | DI.MRI.S_ITS ---
PROCEDURE: MR ABDOMEN WO CON INDICATIONS: elevated bili with stones TECHNIQUE: Coronal HASTE through the abdomen, axial 2-D FLASH in- and [id number], and breath-hold T2 FSE with fat saturation through the biliary system and pancreas. Oblique coronal and axial thin-slice HASTE, radial thick-slab HASTE centered on the extrahepatic bile ducts. Intravenous secretin: Not requested. COMPARISON: [facility], CT, CT ABDOMEN PELVIS WO/W CON, 05/01/2019, 12:58. [facility], US, US ABDOMEN LIMITED, 12/21/2020, 13:44. [facility], CT, CT CHEST ABD PEL W CON, 12/21/2020, 12:13. FINDINGS: Image quality: Excellent. Pancreas and biliary system: Intra- and extra-hepatic biliary ducts are non dilated. Pancreas is normal in morphology, without adjacent soft tissue edema. Pancreatic duct is normal in caliber, without developmental anomalies. Gallbladder demonstrates a gallstone within its lumen, as on series 5, image 19. No additional MRI abnormalities of the gallbladder can be seen. Other solid organs: Liver is normal in size. Spleen is normal in size. There is generalized thickening seen of the adrenal glands, without focal adrenal nodules. Both kidneys are normal in size, without hydronephrosis. Nodes and vessels: No retroperitoneal or mesenteric adenopathy by size criteria. Aorta and inferior vena cava are normal in size. Bowel and peritoneum: Abnormally dilated loops of fluid-filled small bowel are seen that measure up to 4 cm. Transition points are displayed on the recent CT examination. A small amount of ascites is seen adjacent to the liver. Lung bases: Small bilateral pleural effusions and atelectasis can be seen. Bones and soft tissues: No ventral hernias. Bone marrow is of normal overall signal. Mild levoconvex scoliotic curvature is noted. IMPRESSION: No biliary dilatation can be seen. No common duct stones. A gallstone is seen within the gallbladder, without additional MRI abnormalities of the gallbladder. Small bowel obstruction. Please see the prior CT report. Small amount of ascites seen adjacent to the liver. Small bilateral pleural effusions with basilar atelectasis. Dictated by: Jayy Christian M.D. on 12/21/2020 at 16:07 Approved by: Jayy Christian M.D. on 12/21/2020 at 16:12
[2020-12-21 15:41] LABS: RBC Urine None Seen (0-5/HPF)
[2020-12-21 15:55] LABS: Amorphous Sediment Urine 1+; Bacteria Urine Moderate (10-30); Squamous Epithelial Cell Urine 1-5 /HPF (0-5/HPF); Uric Acid Crystals Urine Few; WBC Urine 5-10/HPF (0-5/HPF)
[2020-12-21 15:56] LABS: Culture Indicated Urine Specimen Cultured; Mucus Urine 2+ (Negative)
[2020-12-21] MEDS: SODIUM CHLORIDE 0.9% 1,000 ML 150 ML IV (19:22)
[2020-12-21] MEDS: LIDOCAINE 2% (GLYDO) 6 ML GEL TOP (20:15)
--- NOTE | 2020-12-21 20:57 | P.CONS_ITS ---
History of Present Illness Consult details Date Patient Seen: 12/21/20 Time Patient Seen: 20:57 Chief complaint: vomitting/ not eating or drinking Narrative: The patient is a woman with a 4 day history of anorexia and vomiting. She does not really have any significant abdominal pain. She has not had this before. Her daughter thought she had the flu. Only prior abdominal operation is been umbilical hernia repair. Daughter is not aware of her having any intra- abdominal infections such as diverticulitis in the past. Patient does have atrial fibrillation and has been on Xarelto. Meds Home Medications and Allergies Home Medications Medication Instructions Recorded Confirmed Type Ketoconazole 2 % TOPICAL QDAY #60 gm 09/21/16 10/08/20 Rx latanoprost 0.005 % eye drops EYE-BOTH ml 02/01/18 10/08/20 History (Xalatan) levothyroxine 50 mcg tablet 50 mcg PO QDAY #90 tab 06/04/20 10/08/20 Rx (Synthroid) diltiazem HCl 180 mg 180 mg PO DAILY #90 cap 07/01/20 12/21/20 Rx capsule,extended release 24 hr (Cartia XT) buspirone 5 mg tablet 5 mg PO BID #180 tab 07/30/20 10/08/20 Rx lorazepam 0.5 mg tablet (Ativan) 0.25 mg PO BID PRN #15 tab 08/05/20 10/08/20 Rx oxybutynin chloride 5 mg tablet 2.5 mg PO BID #90 tab 09/03/20 10/08/20 Rx sertraline 100 mg tablet 100 mg PO Q DAY #90 tab 09/03/20 10/08/20 Rx chlordiazepoxide-clidinium 5 1 cap PO TID #90 cap 09/17/20 10/08/20 Rx mg-2.5 mg capsule (Librax (with clidinium)) metoprolol succinate 50 mg 75 mg PO BID tab 10/08/20 12/21/20 History tablet,extended release 24 hr rivaroxaban 15 mg tablet 20 mg PO QPM 12/21/20 12/21/20 History Allergies Allergy/AdvReac Type Severity Reaction Status Date / Time venom-wasp [WASP VENOM] Allergy Intermediate HIVES Verified 10/08/20 15:17 Sulfa (Sulfonamide AdvReac Mild LIPS Verified 10/08/20 15:17 Antibiotics) TINGLING [SULFA (SULFONAMIDE ANTIBIOTICS)] Review of Systems Review of Systems Narrative: Not having any chest pain at this time. No cough or cold. No black or bloody bowel movements. She has had intestinal issues a lot of her life and has been treated for irritable bowel syndrome. She is hypothyroid on low dose of levothyroxine. She takes a beta-hill to slow her heart rate. Exam Vital Signs (past 8 hours): - 12/21/20 13:00 12/21/20 13:10 12/21/20 13:20 Temperature Pulse Rate 109 H 130 H 126 H Respiratory Rate 19 20 19 Blood Pressure Pulse Oximetry 93 92 94 12/21/20 13:30 12/21/20 13:40 12/21/20 13:50 Temperature Pulse Rate 117 H 133 H 134 H Respiratory Rate 20 18 20 Blood Pressure Pulse Oximetry 92 91 93 12/21/20 14:00 12/21/20 14:10 12/21/20 14:20 Temperature Pulse Rate 118 H 121 H 116 H Respiratory Rate 22 19 18 Blood Pressure 130/78 124/68 Pulse Oximetry 92 92 92 12/21/20 14:30 12/21/20 14:41 12/21/20 14:43 Temperature Pulse Rate 116 H 140 H 115 H Respiratory Rate 16 19 Blood Pressure 131/87 Pulse Oximetry 92 95 93 12/21/20 14:50 12/21/20 15:00 12/21/20 15:10 Temperature Pulse Rate 114 H 140 H 139 H Respiratory Rate 20 17 14 Blood Pressure 120/72 108/73 108/81 Pulse Oximetry 93 92 92 12/21/20 15:20 12/21/20 15:30 12/21/20 15:40 Temperature Pulse Rate 123 H 134 H 129 H Respiratory Rate 18 18 18 Blood Pressure 111/81 106/84 109/77 Pulse Oximetry 93 91 91 12/21/20 15:50 12/21/20 16:00 12/21/20 16:10 Temperature Pulse Rate 129 H 137 H 124 H Respiratory Rate 18 16 18 Blood Pressure 103/74 109/75 Pulse Oximetry 92 93 90 L 12/21/20 17:02 12/21/20 17:10 12/21/20 17:20 Temperature Pulse Rate 69 107 H 135 H Respiratory Rate 16 17 Blood Pressure Pulse Oximetry 91 91 92 12/21/20 17:30 12/21/20 17:40 12/21/20 17:50 Temperature Pulse Rate 122 H 104 H 123 H Respiratory Rate 18 17 15 Blood Pressure Pulse Oximetry 92 92 92 12/21/20 18:00 12/21/20 18:10 12/21/20 18:20 Temperature Pulse Rate 111 H 116 H 122 H Respiratory Rate 19 20 19 Blood Pressure Pulse Oximetry 92 92 93 12/21/20 18:30 12/21/20 18:40 12/21/20 18:50 Temperature Pulse Rate 133 H 130 H 141 H Respiratory Rate 15 16 20 Blood Pressure Pulse Oximetry 94 12/21/20 18:59 12/21/20 19:00 12/21/20 19:20 Temperature Pulse Rate 139 H 129 H 126 H Respiratory Rate 17 19 19 Blood Pressure 110/72 Pulse Oximetry 94 95 92 12/21/20 19:24 12/21/20 19:30 12/21/20 19:40 Temperature Pulse Rate Respiratory Rate Blood Pressure 118/87 109/72 116/72 Pulse Oximetry 12/21/20 20:00 12/21/20 20:10 12/21/20 20:20 Temperature Pulse Rate 129 H 113 H Respiratory Rate 22 15 Blood Pressure 125/73 138/89 121/77 Pulse Oximetry 94 93 12/21/20 20:55 Temperature 97.6 F Pulse Rate 99 H Respiratory Rate 15 Blood Pressure 145/86 H Pulse Oximetry 93 Oxygen Delivery Method Room Air Narrative Exam Narrative: Pleasant woman. Answers questions appropriately. Laying rather comfortably. Her lungs are clear to auscultation. No rales or rhonchi. Heart irregularly irregular and fairly rapid rate. Did but soft. It is not tender. No open lesions of the skin appreciated. Objective Labs Result Diagrams: 12/21/20 11:15 12/21/20 11:15 Labs: Laboratory Results - last 24 hr 12/21/20 12/21/20 12/21/20 11:15 11:15 11:15 WBC 16.6 H RBC 5.12 Hgb 17.1 H Hct 51.1 H MCV 99.8 MCH 33.4 MCHC 33.5 RDW 13.9 Plt Count 222 Neut % (Auto) 85.7 H Lymph % (Auto) 7.3 L [place] % (Auto) 6.7 Eos % (Auto) 0.1 L Baso % (Auto) 0.2 Neut # (Auto) 99085 H Lymph # (Auto) 1200 [place] # (Auto) 1100 H Eos # (Auto) 0 Baso # (Auto) 0 APTT 31 Sodium 138 Potassium 3.5 Chloride 105 Carbon Dioxide 23 BUN 44 H Creatinine 1.18 H Estimated GFR 43.4 L BUN/Creatinine Ratio 37.3 H Glucose 138 H Lactate Calcium 10.6 H Total Bilirubin 2.5 H AST 40 H ALT 26 Alkaline Phosphatase 103 Total Creatine Kinase 39 CK-MB (CK-2) TNP CK-MB (CK-2) Rel Index TNP Troponin I < 0.012 NT-Pro-B Natriuret Pep Total Protein 7.5 Albumin 3.9 Globulin 3.6 Albumin/Globulin Ratio 1.1 Lipase 49 Urine RBC Urine WBC Ur Squamous Epith Cells Uric Acid Crystals Amorphous Sediment Urine Bacteria Urine Mucus Ur Culture Indicated? SARS-CoV-2 (PCR) 12/21/20 12/21/20 12/21/20 11:15 11:15 12:25 WBC RBC Hgb Hct MCV MCH MCHC RDW Plt Count Neut % (Auto) Lymph % (Auto) [place] % (Auto) Eos % (Auto) Baso % (Auto) Neut # (Auto) Lymph # (Auto) [place] # (Auto) Eos # (Auto) Baso # (Auto) APTT Sodium Potassium Chloride Carbon Dioxide BUN Creatinine Estimated GFR BUN/Creatinine Ratio Glucose Lactate 2.8 H Calcium Total Bilirubin AST ALT Alkaline Phosphatase Total Creatine Kinase CK-MB (CK-2) CK-MB (CK-2) Rel Index Troponin I NT-Pro-B Natriuret Pep 2350 H Total Protein Albumin Globulin Albumin/Globulin Ratio Lipase Urine RBC Urine WBC Ur Squamous Epith Cells Uric Acid Crystals Amorphous Sediment Urine Bacteria Urine Mucus Ur Culture Indicated? SARS-CoV-2 (PCR) Negative 12/21/20 12/21/20 14:04 14:43 WBC RBC Hgb Hct MCV MCH MCHC RDW Plt Count Neut % (Auto) Lymph % (Auto) [place] % (Auto) Eos % (Auto) Baso % (Auto) Neut # (Auto) Lymph # (Auto) [place] # (Auto) Eos # (Auto) Baso # (Auto) APTT Sodium Potassium Chloride Carbon Dioxide BUN Creatinine Estimated GFR BUN/Creatinine Ratio Glucose Lactate 1.9 Calcium Total Bilirubin AST ALT Alkaline Phosphatase Total Creatine Kinase CK-MB (CK-2) CK-MB (CK-2) Rel Index Troponin I NT-Pro-B Natriuret Pep Total Protein Albumin Globulin Albumin/Globulin Ratio Lipase Urine RBC None seen Urine WBC 5-10/hpf H Ur Squamous Epith Cells 1-5 /hpf Uric Acid Crystals Few H Amorphous Sediment 1+ Urine Bacteria Moderate (10-30) H Urine Mucus 2+ H Ur Culture Indicated? Specimen cultured SARS-CoV-2 (PCR) [facility] Medical History Anxiety Atrial fibrillation (~07/2016) Basal cell carcinoma Basal cell carcinoma (BCC) of left side of nose (09/21/16) Chickenpox Depression Glaucoma Hyperlipidemia Hypertension Hypothyroidism Measles Urge incontinence of urine Surgical History Hx of basal cell carcinoma excision Family History Father Diabetes mellitus Mother No problems noted. Grandfather No problems noted. 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 She appears to have a small- bowel obstruction based on her symptoms and CT findings. Alternative diagnoses to be considered would be blood clots thrown to the intestinal vasculature or an ileus caused by some other infectious process. She is not particularly tender and I think that makes it less likely this is from a clot being thrown especially since she has been taking Xarelto. Usually that causes pain out of proportion to the exam. She does not have pain at this time of any significance and her exam is mildly tender. She has labs such as an elevated hematocrit and elevated creatinine that suggests that there may be some element of dehydration here. Thus hydration will be critical. Is often found within the bowel obstruction but may be more important in this patient whose cardiac function may be limited by her AFib. Thus optimizing her fluid status this will be important. At 84 it is not unusual thing to find people eating lasts and slowly losing muscle mass as they age. She is hypothyroid and her thyroid medication should be continued in some form. Her white blood cell count is a bit worrisome with a preponderance of segs. It would probably be useful to start broad-spectrum IV antibiotics in case this represents an infection elsewhere such as her lung or urinary tract as a cause of her obstructive picture/ileus. After she is hydrated and her NG has been in place overnight we will proceed to a Gastrografin challenge. I spoke quite frankly to the patient and her daughter about the possibility of needing an operation whether they would want to proceed with that. I asked them to give this serious thought as there is some indication that they may not wish to go down that road. I did not indicate to them that I would push them 1 way or another. At 85 one of the principal concerns that she (the patient) and her daughter have is that she does not remain in the hospital only to but they would rather she be taken home and kept comfortable possibly without an operation. Hopefully it will not come to that choice and this process resolves. Time Spent With Patient Critical Care time: I spent a total of [] minutes of critical care time on this patient's care today; this time is exclusive of procedural time.
[2020-12-21] MEDS: LACTATED RINGERS 500 ML 250 ML IV (21:30)
[2020-12-21] MEDS: dilTIAZem 5 MG/ML SDV 10 MG IV (21:30)
[2020-12-21] MEDS: METOPROLOL TARTRATE 5 MG/5 ML INJ IV (21:48)
[2020-12-21] MEDS: PIPERACILLIN/TAZO 2.25 GM in SODIUM CHLORIDE 0.9% 100 ML 25 ML IV (22:05)
--- NOTE | 2020-12-21 23:37 | P.HP_ITS ---
History of Present Illness History of Present Illness Date Patient Seen: 12/21/20 Time Patient Seen: 23:00 Chief complaint: vomitting/ not eating or drinking Patient History Medical History Anxiety Atrial fibrillation (~07/2016) Basal cell carcinoma Basal cell carcinoma (BCC) of left side of nose (09/21/16) Chickenpox Depression Glaucoma Hyperlipidemia Hypertension Hypothyroidism Measles Urge incontinence of urine Surgical History Hx of basal cell carcinoma excision Family & Social History Family History Father Diabetes mellitus Mother No problems noted. Grandfather No problems noted. Grandfather Diabetes mellitus Social History: household members children Prior Living Arrangements House caregiver/support person Yes: Daughter lives just down the block and helps care for her mother. Safety & Behavioral: Feels Safe in Current Yes Environment Been Physically Hurt or No Threatened By a Person Tobacco & Substance use: Smoking Status Never smoker alcohol intake never alcohol intake frequency 0-2 drinks per day Substance Use Type does not use Meds Home Medications and Allergies Home Medications Medication Instructions Recorded Confirmed Type Ketoconazole 2 % TOPICAL QDAY #60 gm 09/21/16 10/08/20 Rx latanoprost 0.005 % eye drops 1 drp EYE-BOTH DAILY ml 02/01/18 12/21/20 History levothyroxine 50 mcg tablet 50 mcg PO QDAY #90 tab 06/04/20 12/21/20 Rx (Synthroid) diltiazem HCl 180 mg 180 mg PO DAILY #90 cap 07/01/20 12/21/20 Rx capsule,extended release 24 hr (Cartia XT) buspirone 5 mg tablet 5 mg PO BID #180 tab 07/30/20 12/21/20 Rx lorazepam 0.5 mg tablet (Ativan) 0.25 mg PO BID PRN #15 tab 08/05/20 12/21/20 Rx oxybutynin chloride 5 mg tablet 2.5 mg PO BID #90 tab 09/03/20 12/21/20 Rx sertraline 100 mg tablet 100 mg PO Q DAY #90 tab 09/03/20 12/21/20 Rx chlordiazepoxide-clidinium 5 1 cap PO TID #90 cap 09/17/20 12/21/20 Rx mg-2.5 mg capsule (Librax (with clidinium)) metoprolol succinate 50 mg 75 mg PO BID tab 10/08/20 12/21/20 History tablet,extended release 24 hr rivaroxaban 15 mg tablet 20 mg PO QPM 12/21/20 12/21/20 History Allergies Allergy/AdvReac Type Severity Reaction Status Date / Time venom-wasp [WASP VENOM] Allergy Intermediate HIVES Verified 10/08/20 15:17 Sulfa (Sulfonamide AdvReac Mild LIPS Verified 10/08/20 15:17 Antibiotics) TINGLING [SULFA (SULFONAMIDE ANTIBIOTICS)] Exam Vital Signs (past 8 hours): - 12/21/20 15:40 12/21/20 15:50 12/21/20 16:00 Temperature Pulse Rate 129 H 129 H 137 H Respiratory Rate 18 18 16 Blood Pressure 109/77 103/74 Pulse Oximetry 91 92 93 12/21/20 16:10 12/21/20 17:02 12/21/20 17:10 Temperature Pulse Rate 124 H 69 107 H Respiratory Rate 18 16 Blood Pressure 109/75 Pulse Oximetry 90 L 91 91 12/21/20 17:20 12/21/20 17:30 12/21/20 17:40 Temperature Pulse Rate 135 H 122 H 104 H Respiratory Rate 17 18 17 Blood Pressure Pulse Oximetry 92 92 92 12/21/20 17:50 12/21/20 18:00 12/21/20 18:10 Temperature Pulse Rate 123 H 111 H 116 H Respiratory Rate 15 19 20 Blood Pressure Pulse Oximetry 92 92 92 12/21/20 18:20 12/21/20 18:30 12/21/20 18:40 Temperature Pulse Rate 122 H 133 H 130 H Respiratory Rate 19 15 16 Blood Pressure Pulse Oximetry 93 12/21/20 18:50 12/21/20 18:59 12/21/20 19:00 Temperature Pulse Rate 141 H 139 H 129 H Respiratory Rate 20 17 19 Blood Pressure 110/72 Pulse Oximetry 94 94 95 12/21/20 19:20 12/21/20 19:24 12/21/20 19:30 Temperature Pulse Rate 126 H Respiratory Rate 19 Blood Pressure 118/87 109/72 Pulse Oximetry 92 12/21/20 19:40 12/21/20 20:00 09/04/21 20:10 Temperature Pulse Rate 129 H Respiratory Rate 22 Blood Pressure 116/72 125/73 138/89 Pulse Oximetry 94 12/21/20 20:20 12/21/20 20:55 12/21/20 21:30 Temperature 97.6 F Pulse Rate 113 H 99 H 140 H Respiratory Rate 15 15 Blood Pressure 121/77 145/86 H 106/70 Pulse Oximetry 93 93 12/21/20 21:35 12/21/20 21:47 12/21/20 21:50 Temperature Pulse Rate 100 H 144 H 80 Respiratory Rate Blood Pressure 111/61 119/77 126/76 Pulse Oximetry 12/21/20 21:55 Temperature Pulse Rate 94 H Respiratory Rate Blood Pressure 116/79 Pulse Oximetry Oxygen Delivery Method Room Air Objective Labs Result Diagrams: 12/21/20 11:15 12/21/20 11:15 Labs: Laboratory Results - last 24 hr 12/21/20 12/21/20 12/21/20 11:15 11:15 11:15 WBC 16.6 H RBC 5.12 Hgb 17.1 H Hct 51.1 H MCV 99.8 MCH 33.4 MCHC 33.5 RDW 13.9 Plt Count 222 Neut % (Auto) 85.7 H Lymph % (Auto) 7.3 L [place] % (Auto) 6.7 Eos % (Auto) 0.1 L Baso % (Auto) 0.2 Neut # (Auto) 87240 H Lymph # (Auto) 1200 [place] # (Auto) 1100 H Eos # (Auto) 0 Baso # (Auto) 0 APTT 31 Sodium 138 Potassium 3.5 Chloride 105 Carbon Dioxide 23 BUN 44 H Creatinine 1.18 H Estimated GFR 43.4 L BUN/Creatinine Ratio 37.3 H Glucose 138 H Lactate Calcium 10.6 H Total Bilirubin 2.5 H AST 40 H ALT 26 Alkaline Phosphatase 103 Total Creatine Kinase 39 CK-MB (CK-2) TNP CK-MB (CK-2) Rel Index TNP Troponin I < 0.012 NT-Pro-B Natriuret Pep Total Protein 7.5 Albumin 3.9 Globulin 3.6 Albumin/Globulin Ratio 1.1 Lipase 49 Urine RBC Urine WBC Ur Squamous Epith Cells Uric Acid Crystals Amorphous Sediment Urine Bacteria Urine Mucus Ur Culture Indicated? SARS-CoV-2 (PCR) 12/21/20 12/21/2012/21/21 11:15 11:15 12:25 WBC RBC Hgb Hct MCV MCH MCHC RDW Plt Count Neut % (Auto) Lymph % (Auto) [place] % (Auto) Eos % (Auto) Baso % (Auto) Neut # (Auto) Lymph # (Auto) [place] # (Auto) Eos # (Auto) Baso # (Auto) APTT Sodium Potassium Chloride Carbon Dioxide BUN Creatinine Estimated GFR BUN/Creatinine Ratio Glucose Lactate 2.8 H Calcium Total Bilirubin AST ALT Alkaline Phosphatase Total Creatine Kinase CK-MB (CK-2) CK-MB (CK-2) Rel Index Troponin I NT-Pro-B Natriuret Pep 2350 H Total Protein Albumin Globulin Albumin/Globulin Ratio Lipase Urine RBC Urine WBC Ur Squamous Epith Cells Uric Acid Crystals Amorphous Sediment Urine Bacteria Urine Mucus Ur Culture Indicated? SARS-CoV-2 (PCR) Negative 12/21/20 12/21/20 14:04 14:43 WBC RBC Hgb Hct MCV MCH MCHC RDW Plt Count Neut % (Auto) Lymph % (Auto) [place] % (Auto) Eos % (Auto) Baso % (Auto) Neut # (Auto) Lymph # (Auto) [place] # (Auto) Eos # (Auto) Baso # (Auto) APTT Sodium Potassium Chloride Carbon Dioxide BUN Creatinine Estimated GFR BUN/Creatinine Ratio Glucose Lactate 1.9 Calcium Total Bilirubin AST ALT Alkaline Phosphatase Total Creatine Kinase CK-MB (CK-2) CK-MB (CK-2) Rel Index Troponin I NT-Pro-B Natriuret Pep Total Protein Albumin Globulin Albumin/Globulin Ratio Lipase Urine RBC None seen Urine WBC 5-10/hpf H Ur Squamous Epith Cells 1-5 /hpf Uric Acid Crystals Few H Amorphous Sediment 1+ Urine Bacteria Moderate (10-30) H Urine Mucus 2+ H Ur Culture Indicated? Specimen cultured SARS-CoV-2 (PCR) Assessment & Plan Time Spent With Patient Critical Care time: I spent a total of [] minutes of critical care time on this patient's care today; this time is exclusive of procedural time.
[2020-12-22] VITALS (10 sets, daily range): BP systolic 111–139; BP diastolic 52–101; PULSE 79–140; RESP 16–20; TEMP 36.1–36.4; O2SAT 93–95
--- NOTE | 2020-12-22 | DI.RAD.S_ITS ---
PROCEDURE: XR GASTROGRAFIN CHALLENGE COMPARISON: , MR, MR ABDOMEN WO CON, 12/21/2020, 16:29. , US, US ABDOMEN LIMITED, 12/21/2020, 13:44. , CT, CT CHEST ABD PEL W CON, 12/21/2020, 12:13. INDICATIONS: sbo. dx/thrapeutic FINDINGS: Gastrografin was given via NG tube. On this study, the majority of the Gastrografin can be seen within the gastric lumen. Contrast can be seen within proximal dilated small bowel loops that measure up to 4.5 cm. Contrast is not seen within distal small bowel loops are within the colon. Age-appropriate bony degenerative changes are seen. IMPRESSION: These imaging findings are most compatible with continued small bowel obstruction. Please consider a repeat study in 1-4 hours to show distal progress of the contrast. This should be performed after the patient has had a chance to lie [id number] to allow the contrast to exit from the stomach and into the small bowel. Dictated by: Jayy Christian M.D. on 12/22/2020 at 12:48 Approved by: Jayy Christian M.D. on 12/22/2020 at 12:49
[2020-12-22] MEDS: LACTATED RINGERS 1,000 ML 150 ML IV ×2 (00:03→17:39)
--- NOTE | 2020-12-22 01:50 | P.HP_ITS ---
History of Present Illness History of Present Illness Date Patient Seen: 12/17/20 Time Patient Seen: 23:00 Chief complaint: vomitting/ not eating or drinking Narrative: Soila Ayala is 85-year-old female with a history of chronic atrial fibrillation anticoagulated on rivaroxaban, hypothyroidism and anxiety presents with a 4 day history to the emergency department with anorexia and vomiting. History use provided by the daughter because the patient is asleep and not responding to my questions. Daughter thought she was having the flu. She has been sick since We dn night and then threw up green vomitus and the daughter decided this was not the flu and brought her in. Her last BM was 3 days ago. Daughter states she has not taken any of her meds in 4 days. She has been generally very weak and not interested in eating. Daughter denies a history of fever or chills, abdominal pain, chest pain, shortness of breath, difficulties urinating, or constipation. Multiple imaging studies were ordered in the emergency department, most significant finding was a small-bowel obstruction, ?Abnormally dilated loops of fluid-filled small bowel are seen that measure up to 4 cm.? Transition points are displayed on the recent CT examination.? A small amount of ascites is seen adjacent to the liver.Patient is afebrile, blood pressure 128/53, heart rate 93, it was in the 140s on admission to the floor, respiratory rate 14, oxygen saturation is 96% on room air, she weighs 66.5 kg with a BMI of 27.6. Her WBC is elevated at 16.6, hemoglobin 17.1, hematocrit 51.1, platelet count 222, she has a left shift of 14,200, sodium 138, potassium 3.5, chloride 105, serum bicarb 23, creatinine 1.18, BUN 44, with a GFR of 43.4 which is new, glucose 138, initial lactate was 2.8 and is now 1.9, calcium 10.6, T bili was 2.5, AST 40, proBNP is 23 50, UA did indicate bacteria which will be cultured, and COVID- 19 PCR is negative. Patient History Medical History Anxiety Atrial fibrillation (~07/2016) Basal cell carcinoma Basal cell carcinoma (BCC) of left side of nose (09/21/16) Chickenpox Depression Glaucoma Hyperlipidemia Hypertension Hypothyroidism Measles Urge incontinence of urine Surgical History Hx of basal cell carcinoma excision Family & Social History Family History Father Diabetes mellitus Mother No problems noted. Grandfather No problems noted. Grandfather Diabetes mellitus Social History: household members children Prior Living Arrangements House caregiver/support person Yes: Daughter lives just down the block and helps care for her mother. Safety & Behavioral: Feels Safe in Current Yes Environment Been Physically Hurt or No Threatened By a Person Tobacco & Substance use: Smoking Status Never smoker alcohol intake never alcohol intake frequency 0-2 drinks per day Substance Use Type does not use Meds Home Medications and Allergies Home Medications Medication Instructions Recorded Confirmed Type latanoprost 0.005 % eye drops 1 drp EYE-BOTH DAILY ml 02/01/18 12/21/20 History levothyroxine 50 mcg tablet 50 mcg PO QDAY #90 tab 06/04/20 12/21/20 Rx (Synthroid) diltiazem HCl 180 mg 180 mg PO DAILY #90 cap 07/01/20 12/21/20 Rx capsule,extended release 24 hr (Cartia XT) buspirone 5 mg tablet 5 mg PO BID #180 tab 07/30/20 12/21/20 Rx lorazepam 0.5 mg tablet (Ativan) 0.25 mg PO BID PRN #15 tab 08/05/20 12/21/20 Rx oxybutynin chloride 5 mg tablet 2.5 mg PO BID #90 tab 09/03/20 12/21/20 Rx sertraline 100 mg tablet 100 mg PO Q DAY #90 tab 09/03/20 12/21/20 Rx chlordiazepoxide-clidinium 5 1 cap PO TID #90 cap 09/17/20 12/21/20 Rx mg-2.5 mg capsule (Librax (with clidinium)) metoprolol succinate 50 mg 75 mg PO BID tab 10/08/20 12/21/20 History tablet,extended release 24 hr rivaroxaban 15 mg tablet 20 mg PO QPM 12/21/20 12/21/20 History Allergies Allergy/AdvReac Type Severity Reaction Status Date / Time venom-wasp [WASP VENOM] Allergy Intermediate HIVES Verified 10/08/20 15:17 Sulfa (Sulfonamide AdvReac Mild LIPS Verified 10/08/20 15:17 Antibiotics) TINGLING [SULFA (SULFONAMIDE ANTIBIOTICS)] Review of Systems Review of Systems ROS: Yes other (Patient is not speaking during this exam.) Exam Vital Signs (past 8 hours): - 12/21/20 18:00 12/21/20 18:10 12/21/20 18:20 Temperature Pulse Rate 111 H 116 H 122 H Respiratory Rate 19 20 19 Blood Pressure Pulse Oximetry 92 92 93 12/21/20 18:30 12/21/20 18:40 12/21/20 18:50 Temperature Pulse Rate 133 H 130 H 141 H Respiratory Rate 15 16 20 Blood Pressure Pulse Oximetry 94 12/21/20 18:59 12/21/20 19:00 12/21/20 19:20 Temperature Pulse Rate 139 H 129 H 126 H Respiratory Rate 17 19 19 Blood Pressure 110/72 Pulse Oximetry 94 95 92 12/21/20 19:24 12/21/20 19:30 12/21/20 19:40 Temperature Pulse Rate Respiratory Rate Blood Pressure 118/87 109/72 116/72 Pulse Oximetry 12/21/20 20:00 12/21/20 20:10 12/21/20 20:20 Temperature Pulse Rate 129 H 113 H Respiratory Rate 22 15 Blood Pressure 125/73 138/89 121/77 Pulse Oximetry 94 93 12/21/20 20:55 12/21/20 21:30 12/21/20 21:35 Temperature 97.6 F Pulse Rate 99 H 140 H 100 H Respiratory Rate 15 Blood Pressure 145/86 H 106/70 111/61 Pulse Oximetry 93 12/21/20 21:47 12/21/20 21:50 12/21/20 21:55 Temperature Pulse Rate 144 H 80 94 H Respiratory Rate Blood Pressure 119/77 126/76 116/79 Pulse Oximetry 12/21/20 23:12 Temperature 97.6 F Pulse Rate 93 H Respiratory Rate 14 Blood Pressure 128/83 Pulse Oximetry 96 Oxygen Delivery Method Room Air Oxygen Flow Rate 0 Narrative Exam Narrative: Gen: Alert, arousable cachectic and ill appearing 85 y.o. female HEENT: normocephalic, atraumatic, conjunctiva clear, sclera non-icteric, NG tube in place and draining scant fluid, oral mucosa dry Neck: supple, full ROM, no JVD, trachea is midline Resp: Lungs CTA, non-labored breathing CV: RRR, no murmur or rubs Abd: soft, non-tender, normoactive BTs Skin: no lesions or rashes, dry and intact Neuro: Alert and oriented X 3, but not speaking, suspect voluntarily Extremities: moves all 4 extremities, is ambulatory, negative Vielka?s sign Psyche: unable to assess Objective Labs Result Diagrams: 12/21/20 11:15 12/21/20 11:15 Labs: Laboratory Results - last 24 hr 12/21/20 12/21/20 12/21/20 11:15 11:15 11:15 WBC 16.6 H RBC 5.12 Hgb 17.1 H Hct 51.1 H MCV 99.8 MCH 33.4 MCHC 33.5 RDW 13.9 Plt Count 222 Neut % (Auto) 85.7 H Lymph % (Auto) 7.3 L [place] % (Auto) 6.7 Eos % (Auto) 0.1 L Baso % (Auto) 0.2 Neut # (Auto) 92777 H Lymph # (Auto) 1200 [place] # (Auto) 1100 H Eos # (Auto) 0 Baso # (Auto) 0 APTT 31 Sodium 138 Potassium 3.5 Chloride 105 Carbon Dioxide 23 BUN 44 H Creatinine 1.18 H Estimated GFR 43.4 L BUN/Creatinine Ratio 37.3 H Glucose 138 H Lactate Calcium 10.6 H Total Bilirubin 2.5 H AST 40 H ALT 26 Alkaline Phosphatase 103 Total Creatine Kinase 39 CK-MB (CK-2) TNP CK-MB (CK-2) Rel Index TNP Troponin I < 0.012 NT-Pro-B Natriuret Pep Total Protein 7.5 Albumin 3.9 Globulin 3.6 Albumin/Globulin Ratio 1.1 Lipase 49 Urine RBC Urine WBC Ur Squamous Epith Cells Uric Acid Crystals Amorphous Sediment Urine Bacteria Urine Mucus Ur Culture Indicated? SARS-CoV-2 (PCR) 12/21/20 12/21/20 12/21/20 11:15 11:15 12:25 WBC RBC Hgb Hct MCV MCH MCHC RDW Plt Count Neut % (Auto) Lymph % (Auto) [place] % (Auto) Eos % (Auto) Baso % (Auto) Neut # (Auto) Lymph # (Auto) [place] # (Auto) Eos # (Auto) Baso # (Auto) APTT Sodium Potassium Chloride Carbon Dioxide BUN Creatinine Estimated GFR BUN/Creatinine Ratio Glucose Lactate 2.8 H Calcium Total Bilirubin AST ALT Alkaline Phosphatase Total Creatine Kinase CK-MB (CK-2) CK-MB (CK-2) Rel Index Troponin I NT-Pro-B Natriuret Pep 2350 H Total Protein Albumin Globulin Albumin/Globulin Ratio Lipase Urine RBC Urine WBC Ur Squamous Epith Cells Uric Acid Crystals Amorphous Sediment Urine Bacteria Urine Mucus Ur Culture Indicated? SARS-CoV-2 (PCR) Negative 12/21/20 12/21/20 14:04 14:43 WBC RBC Hgb Hct MCV MCH MCHC RDW Plt Count Neut % (Auto) Lymph % (Auto) [place] % (Auto) Eos % (Auto) Baso % (Auto) Neut # (Auto) Lymph # (Auto) [place] # (Auto) Eos # (Auto) Baso # (Auto) APTT Sodium Potassium Chloride Carbon Dioxide BUN Creatinine Estimated GFR BUN/Creatinine Ratio Glucose Lactate 1.9 Calcium Total Bilirubin AST ALT Alkaline Phosphatase Total Creatine Kinase CK-MB (CK-2) CK-MB (CK-2) Rel Index Troponin I NT-Pro-B Natriuret Pep Total Protein Albumin Globulin Albumin/Globulin Ratio Lipase Urine RBC None seen Urine WBC 5-10/hpf H Ur Squamous Epith Cells 1-5 /hpf Uric Acid Crystals Few H Amorphous Sediment 1+ Urine Bacteria Moderate (10-30) H Urine Mucus 2+ H Ur Culture Indicated? Specimen cultured SARS-CoV-2 (PCR) Assessment & Plan Assessment & Plan narrative: Eva Iniguez will be admitted for further management of a small-bowel obstruction. 1. Acute small-bowel obstruction, present on admission * NG tube was placed it in the patient in the ED * Dr. Anderson is consulting on the patient and plans to do a small-bowel follow- through tomorrow morning * He has discussed possible surgical intervention though it is possible family may not opt to do anything * She was started on IV Zosyn by Dr. Anderson as well as fluids * Obviously NPO 2. Chronic atrial fibrillation anticoagulated on rivaroxaban, present on admission * Due to possible surgical intervention we are holding her rivaroxaban * She normally takes oral diltiazem and metoprolol and is written for as needed diltiazem and IV Lopressor 5 mg q.6 hours with blood pressure parameters 3. Hypothyroidism, chronic * Consideration to be made to administer IV levothyroxine if the patient is go ing to be NPO much longer than a week and that dose would be 25 mcg IV 4. Anxiety, chronic * Holding buspirone and sertraline due to patient being NPO 5. Advanced care planning * Patient had just filled out POLST indicating comfort measures only however she may opt to undergo surgery once she is in little better cognitive state. * Discussion regarding recent paperwork on advanced directive and specifics: 10 minutes. VTE Prophylaxis: Wells risk score 1.5[X] Bilateral SCDs Patient is admitted to the inpatient service due to the severity of disease, risks of further disease progression and this stay is expected to exceed 2 midnights. FEN: IV fluids: NS at 125 ml/hour, diet: NPO, labs: CBC, C/BMP, liver enzymes, Mag, Consultants Dr. Anderson, General Surgery care and involvement in the patient?s care is appreciated. Dispo: Unknown at this time Code status: DNR/DNI as discussed with the patient who identifies daughterJaneth as his surrogate and POA. X I confirmed that the patient's advanced care plan is present, code status is determined, or surrogate decision maker is listed on the patient's medical record. [X] I have utilized all available immediate resources to obtain, update, or review of the patient's current medications [X] The patient has current or prior documentation of the left ventricular ejection fraction (LEVF) less than 40% or moderate or severely depressed left ventricular systolic function. [] Yes [X] No COVID-19 COVID-19 status: Negative Result date/Date tested (Pos, Neg/Pending): 12/21/20 Scores GCS Criss coma scale eye opening: Spontaneous Criss coma scale verbal response: Confused [place] coma scale motor response: Obey commands Criss coma scale total score: 14 Wells' Criteria for PE Clinical signs and symptoms of DVT: No PE is #1 Dx or equally likely: No Heart rate > 100: No Immobilization at least 3 days or surg in previous 4 weeks: Yes History of PE or DVT: No Hemoptysis: No Malignancy w/Treatment within 6 months or palliative: No Wells' PE Score total: 1.5 Quality VTE Deep Vein Thrombosis/Pulmonary Embolism Present on Admission: No MIPS - DC The patient has current or prior documentation of left ventricular ejection fraction (LVEF) less than 40%, or moderate or severely depressed left ventricular systolic function.: No
[2020-12-22] MEDS: METOPROLOL TARTRATE 5 MG/5 ML INJ IV ×4 (03:16→20:29)
[2020-12-22] MEDS: PIPERACILLIN/TAZO 2.25 GM in SODIUM CHLORIDE 0.9% 100 ML 25 ML IV (03:17)
[2020-12-22 05:12] LABS: Add Manual Diff / Slide Review NO; Basophils Absolute Auto 0 /uL (0-100); Basophils Percent Auto 0.2 % (0-2); Eosinophils Absolute Auto 0 /uL (0-450); Eosinophils Percent Auto 0.2 % (2-4); Hematocrit 46.6 % (36-46); Hemoglobin 15.6 g/dL (12.0-16.0); Lymphocytes Absolute Auto 700 /uL (1100-4500); Lymphocytes Percent Auto 7.2 % (25-40); Mean Corpuscular HGB Conc 33.4 % (30-36); Mean Corpuscular Hemoglobin 33.5 PG (26-34); Mean Corpuscular Volume 100.1 fL (80-100); Monocytes Absolute Auto 800 /uL (0-900); Monocytes Percent Auto 7.8 % (3-14); Neutrophils Absolute Auto 8500 /uL (1500-7000); Neutrophils Percent Auto 84.6 % (50-75); Platelet Count 184 X10^3/uL (150-400); Red Blood Cell Count 4.65 X10^6/uL (4.0-5.2); Red Cell Distribution Width 13.9 % (11.6-14.8)
[2020-12-22 05:24] LABS: Alanine Aminotransferase 24 IU/L (<35); Albumin 2.9 g/dL (3.5-5.0); Albumin Globulin Ratio 0.9 (1.0-2.8); Alkaline Phosphatase 73 U/L (38-126); Aspartate Aminotransferase 32 IU/L (14-36); BUN Creatinine Ratio 40.3 (6-22); Bilirubin Total 2.1 mg/dL (0.2-1.3); Bilirubin Unconjugated 1.8 mg/dL (0.0-1.1); Blood Urea Nitrogen 48 mg/dL (7-17); Calcium 9.5 mg/dL (8.4-10.2); Carbon Dioxide 21 mmol/L (22-32); Chloride 111 mmol/L (98-107); Globulin 3.1 g/dL (1.7-4.1); Glucose 98 mg/dL (80-110); HEMOLYSIS < 15 (0-50); Magnesium 1.9 mg/dL (1.6-2.3); Potassium 3.7 mmol/L (3.4-5.1); Sodium 139 mmol/L (137-145)
--- NOTE | 2020-12-22 07:11 | ED.ABDPAIN ---
HPI - Abdominal Pain General Chief Complaint: Abdominal Pain Stated Complaint: vomitting/ not eating or drinking Time Seen by Provider: 12/21/20 11:36 Source: patient Mode of arrival: Wheelchair Limitations: no limitations History of Present Illness HPI narrative: Unfortunately original note has somehow been canceled Patient is an 85-year-old female with history of atrial fibrillation on Xarelto presenting 4 days of nausea vomiting abdominal pain. Unable to keep anything down is. She currently hypotensive 86/57 and in AFib with RVR heart rate 140s. She had the flu she has been quite sick vomiting is up green stuff not coffee-ground or black for multiple days unable to keep anything in. There has not been any diarrhea or fever. There is she has been unable to take any medications for the last 4 days as well. Related Data Home Medications Medication Instructions Recorded Confirmed latanoprost 0.005 % eye drops 1 drp EYE-BOTH DAILY ml 02/01/18 12/21/20 metoprolol succinate 50 mg 75 mg PO BID tab 10/08/20 12/21/20 tablet,extended release 24 hr rivaroxaban 15 mg tablet 20 mg PO QPM 12/21/20 12/21/20 Previous Rx's Medication Instructions Recorded levothyroxine 50 mcg tablet 50 mcg PO QDAY #90 tab 06/04/20 (Synthroid) diltiazem HCl 180 mg 180 mg PO DAILY #90 cap 07/01/20 capsule,extended release 24 hr (Cartia XT) buspirone 5 mg tablet 5 mg PO BID #180 tab 07/30/20 lorazepam 0.5 mg tablet (Ativan) 0.25 mg PO BID PRN #15 tab 08/05/20 oxybutynin chloride 5 mg tablet 2.5 mg PO BID #90 tab 09/03/20 sertraline 100 mg tablet 100 mg PO Q DAY #90 tab 09/03/20 chlordiazepoxide-clidinium 5 1 cap PO TID #90 cap 09/17/20 mg-2.5 mg capsule (Librax (with clidinium)) Allergies Allergy/AdvReac Type Severity Reaction Status Date / Time venom-wasp [WASP VENOM] Allergy Intermediate HIVES Verified 10/08/20 15:17 Sulfa (Sulfonamide AdvReac Mild LIPS Verified 10/08/20 15:17 Antibiotics) TINGLING [SULFA (SULFONAMIDE ANTIBIOTICS)] Review of Systems Review of Systems Narrative: GENERAL: Denies chills, fatigue, malaise, fever, sweats, travel HEENT: Denies sinus pain, ear pain, sore throat, difficulty swallowing, neck pain RESPIRATORY: Denies dyspnea, cough, wheezing, hemoptysis, sputum. CARDIOVASCULAR: Atrial fibrillation GASTROINTESTINAL: See HPI : Denies dysuria, frequency, incontinence, hematuria, urinary retention, flank pain. MUSCULOSKELETAL: Denies weakness, joint pain, or bony pain SKIN: No rash, no erythema, no pruritus NEUROLOGIC: Denies weakness, dizziness, headache, numbness, change in speech, confusion PSYCHIATRIC: No concerning psychosocial issues. 12 point review of systems is negative except for those stated above and HPI Patient History Medical History Anxiety Atrial fibrillation (~07/2016) Basal cell carcinoma Basal cell carcinoma (BCC) of left side of nose (09/21/16) Chickenpox Depression Glaucoma Hyperlipidemia Hypertension Hypothyroidism Measles Urge incontinence of urine Surgical History Hx of basal cell carcinoma excision Family History Father Diabetes mellitus Mother No problems noted. Grandfather No problems noted. Grandfather Diabetes mellitus Social History number of children: 3 household members: children caregiver/support person: Yes (Daughter lives just down the block and helps care for her mother.) Smoking Status: Never smoker second hand exposure: No alcohol intake: never substance use type: does not use Smoking Status: Never smoker alcohol intake frequency: 0-2 drinks per day Substance Use Type: does not use Exam Initial Vital Signs Initial Vital Signs: Vital Signs Temperature 97.4 F L 12/21/20 11:03 Pulse Rate 122 H 12/21/20 11:03 Respiratory Rate 18 12/21/20 11:03 Blood Pressure 86/57 L 12/21/20 11:03 Pulse Oximetry 95 12/21/20 11:03 GENERAL: Alert week 85-year-old female awake and alert HEENT: Head atraumatic,EOMI, pupils reactive, face symmetric, dry mucous membranes CARDIOVASCULAR: Irregularly irregular tachycardic no murmur RESPIRATORY: Breath sounds equal bilaterally, no wheezes rales or rhonchi. ABDOMEN: Soft, no distension slight epigastric pain no right upper quadrant pain EXTREMITIES: Normal range of motion, no clubbing or edema. Neurovascularly intact NEUROLOGICAL: Alert and oriented x4.Normal gait and speech. SKIN: Warm, dry, no laceration, no petechiae, no rashes or lesions. Course Orders Ordered: Lactated Ringer's (Lactated Ringers) 1,000 mls @ 150 mls/hr IV CONT [facility] Last Admin: 12/22/20 00:03 Dose: 150 mls/hr Documented by: LAILA Piperacillin Sod/Tazobactam (Sod 2.25 gm/ Sodium Chloride) 100 mls @ 25 mls/hr IV Q6H [facility] Last Admin: 12/22/20 03:17 Dose: 25 mls/hr Documented by: Infusion: 12/22/20 02:05 Dose: 25 mls/hr Documented by: Admin: 12/21/20 22:05 Dose: 25 mls/hr Documented by: DENNIS Metoprolol Tartrate (Metoprolol Tartrate 5 Mg/5 Ml Inj) 5 mg IV Q6H [facility] Last Admin: 12/22/20 03:16 Dose: 5 mg Documented by: Admin: 12/21/20 21:48 Dose: 5 mg Documented by: DENNIS Naloxone HCl (Naloxone 0.4 Mg/Ml Vial) 0.2 mg IV Q2MIN PRN PRN Reason: Opiate Reversal Ondansetron HCl (Ondansetron 4 Mg/2 Ml Inj) 4 mg IV Q6HR PRN PRN Reason: Nausea And Vomiting Discontinued Medications Buspirone HCl (Buspirone 5 Mg Tablet) 5 mg PO BID [facility] Diltiazem HCl (Diltiazem Cd 180 Mg Cap) 180 mg PO DAILY [facility] Diltiazem HCl (Diltiazem 5 Mg/Ml Sdv) 10 mg IV NOW ONE Stop: 12/21/20 21:17 Last Admin: 12/21/20 21:30 Dose: 10 mg Documented by: DENNIS Diltiazem HCl (Diltiazem 5 Mg/Ml Sdv) 5 mg IV NOW ONE Stop: 12/22/20 06:54 Sodium Chloride (Normal Saline 0.9%) 1,000 mls @ 1,000 mls/hr IV BOLUS ONE Stop: 12/21/20 12:06 Last Infusion: 12/21/20 13:22 Dose: 0 mls/hr Documented by: МАРИЯ Admin: 12/21/20 11:42 Dose: 1,000 mls/hr Documented by: JULIAN Piperacillin Sod/Tazobactam (Sod 4.5 gm/ Sodium Chloride) 100 mls @ 200 mls/hr IV NOW ONE Stop: 12/21/20 13:07 Last Infusion: 12/21/20 15:14 Dose: 0 mls/hr Documented by: МАРИЯ Admin: 12/21/20 13:31 Dose: 200 mls/hr Documented by: МАРИЯ Sodium Chloride (Normal Saline 0.9%) 1,000 mls @ 150 mls/hr IV CONT [facility] Last Admin: 12/21/20 19:22 Dose: 150 mls/hr Documented by: МАРИЯ Lactated Ringer's (Lactated Ringers) 500 mls @ 250 mls/hr IV BOLUS ONE Stop: 12/21/20 23:09 Last Admin: 12/21/20 21:30 Dose: 250 mls/hr Documented by: DENNIS Levothyroxine Sodium (Levothyroxine 50 Mcg Tablet) 50 mcg PO QDAY [facility] Lidocaine HCl (Lidocaine 2% (Glydo) 6 Ml Gel) 6 ml TOP NOW ONE Stop: 12/21/20 19:52 Last Admin: 12/21/20 20:15 Dose: 6 ml Documented by: ADIS Metoprolol Succinate (Metoprolol Er 50 Mg Tablet) 75 mg PO BID [facility] Last Admin: 12/21/20 22:00 Dose: Not Given Documented by: DENNIS Ondansetron HCl (Ondansetron 4 Mg/2 Ml Inj) 4 mg IV NOW ONE Stop: 12/21/20 11:08 Last Admin: 12/21/20 11:42 Dose: 4 mg Documented by: JULIAN Oxybutynin (Oxybutynin 5 Mg Tablet) 2.5 mg PO BID [facility] Last Admin: 12/21/20 22:00 Dose: Not Given Documented by: DENNIS Pantoprazole Sodium (Pantoprazole 40 Mg Vial) 40 mg IV NOW ONE Stop: 12/21/20 12:04 Last Admin: 12/21/20 12:31 Dose: 40 mg Documented by: JULIAN Rivaroxaban (Rivaroxaban 10 Mg Tablet) 20 mg PO QPM [facility] Sertraline HCl (Sertraline 50 Mg Tablet) 100 mg PO Q DAY [facility] MDM - Abdominal Pain Lab Data Result diagrams: 12/22/20 05:01 12/22/20 05:01 Labs: Lab Results 12/21/20 12/21/20 12/21/20 Range/Units 11:15 11:15 11:15 WBC 16.6 H (4.5-11.0) X10^3/uL RBC 5.12 (4.0-5.2) X10^6/uL Hgb 17.1 H (12.0-16.0) g/dL Hct 51.1 H (36-46) % MCV 99.8 (80-100) fL MCH 33.4 (26-34) PG MCHC 33.5 (30-36) % RDW 13.9 (11.6-14.8) % Plt Count 222 (150-400) X10^3/uL Neut % (Auto) 85.7 H (50-75) % Lymph % (Auto) 7.3 L (25-40) % [place] % (Auto) 6.7 (3-14) % Eos % (Auto) 0.1 L (2-4) % Baso % (Auto) 0.2 (0-2) % Neut # (Auto) 55103 H (9180-0727) /uL Lymph # (Auto) 1200 (3871-0094) /uL [place] # (Auto) 1100 H (0-900) /uL Eos # (Auto) 0 (0-450) /uL Baso # (Auto) 0 (0-100) /uL APTT 31 (26.4-36.2) SECONDS Sodium 138 (137-145) mmol/L Potassium 3.5 (3.4-5.1) mmol/L Chloride 105 (98-107) mmol/L Carbon Dioxide 23 (22-32) mmol/L BUN 44 H (7-17) mg/dL Creatinine 1.18 H (0.52-1.04) mg/dL Estimated GFR 43.4 L (>60) mL/min BUN/Creatinine Ratio 37.3 H (6-22) Glucose 138 H (80-110) mg/dL Lactate (0.7-2.1) mmol/L Calcium 10.6 H (8.4-10.2) mg/dL Total Bilirubin 2.5 H (0.2-1.3) mg/dL AST 40 H (14-36) IU/L ALT 26 (<35) IU/L Alkaline Phosphatase 103 (38-126) U/L Total Creatine Kinase 39 (30-135) U/L CK-MB (CK-2) TNP CK-MB (CK-2) Rel Index TNP Troponin I < 0.012 (0.01-0.034) ng/mL NT-Pro-B Natriuret Pep (<450) pg/mL Total Protein 7.5 (6.3-8.2) g/dL Albumin 3.9 (3.5-5.0) g/dL Globulin 3.6 (1.7-4.1) g/dL Albumin/Globulin Ratio 1.1 (1.0-2.8) Lipase 49 (23-300) U/L Urine RBC (0-5/HPF) Urine WBC (0-5/HPF) Ur Squamous Epith Cells (0-5/HPF) Uric Acid Crystals (None) Amorphous Sediment Urine Bacteria (None) Urine Mucus (Negative) Ur Culture Indicated? SARS-CoV-2 (PCR) (Negative) 12/21/20 12/21/20 12/21/20 Range/Units 11:15 11:15 12:25 WBC (4.5-11.0) X10^3/uL RBC (4.0-5.2) X10^6/uL Hgb (12.0-16.0) g/dL Hct (36-46) % MCV (80-100) fL MCH (26-34) PG MCHC (30-36) % RDW (11.6-14.8) % Plt Count (150-400) X10^3/uL Neut % (Auto) (50-75) % Lymph % (Auto) (25-40) % [place] % (Auto) (3-14) % Eos % (Auto) (2-4) % Baso % (Auto) (0-2) % Neut # (Auto) (6283-3131) /uL Lymph # (Auto) (3296-3158) /uL [place] # (Auto) (0-900) /uL Eos # (Auto) (0-450) /uL Baso # (Auto) (0-100) /uL APTT (26.4-36.2) SECONDS Sodium (137-145) mmol/L Potassium (3.4-5.1) mmol/L Chloride (98-107) mmol/L Carbon Dioxide (22-32) mmol/L BUN (7-17) mg/dL Creatinine (0.52-1.04) mg/dL Estimated GFR (>60) mL/min BUN/Creatinine Ratio (6-22) Glucose (80-110) mg/dL Lactate 2.8 H (0.7-2.1) mmol/L Calcium (8.4-10.2) mg/dL Total Bilirubin (0.2-1.3) mg/dL AST (14-36) IU/L ALT (<35) IU/L Alkaline Phosphatase (38-126) U/L Total Creatine Kinase (30-135) U/L CK-MB (CK-2) CK-MB (CK-2) Rel Index Troponin I (0.01-0.034) ng/mL NT-Pro-B Natriuret Pep 2350 H (<450) pg/mL Total Protein (6.3-8.2) g/dL Albumin (3.5-5.0) g/dL Globulin (1.7-4.1) g/dL Albumin/Globulin Ratio (1.0-2.8) Lipase (23-300) U/L Urine RBC (0-5/HPF) Urine WBC (0-5/HPF) Ur Squamous Epith Cells (0-5/HPF) Uric Acid Crystals (None) Amorphous Sediment Urine Bacteria (None) Urine Mucus (Negative) Ur Culture Indicated? SARS-CoV-2 (PCR) Negative (Negative) 12/21/20 12/21/20 Range/Units 14:04 14:43 WBC (4.5-11.0) X10^3/uL RBC (4.0-5.2) X10^6/uL Hgb (12.0-16.0) g/dL Hct (36-46) % MCV (80-100) fL MCH (26-34) PG MCHC (30-36) % RDW (11.6-14.8) % Plt Count (150-400) X10^3/uL Neut % (Auto) (50-75) % Lymph % (Auto) (25-40) % [place] % (Auto) (3-14) % Eos % (Auto) (2-4) % Baso % (Auto) (0-2) % Neut # (Auto) (4363-6248) /uL Lymph # (Auto) (5995-7883) /uL [place] # (Auto) (0-900) /uL Eos # (Auto) (0-450) /uL Baso # (Auto) (0-100) /uL APTT (26.4-36.2) SECONDS Sodium (137-145) mmol/L Potassium (3.4-5.1) mmol/L Chloride (98-107) mmol/L Carbon Dioxide (22-32) mmol/L BUN (7-17) mg/dL Creatinine (0.52-1.04) mg/dL Estimated GFR (>60) mL/min BUN/Creatinine Ratio (6-22) Glucose (80-110) mg/dL Lactate 1.9 (0.7-2.1) mmol/L Calcium (8.4-10.2) mg/dL Total Bilirubin (0.2-1.3) mg/dL AST (14-36) IU/L ALT (<35) IU/L Alkaline Phosphatase (38-126) U/L Total Creatine Kinase (30-135) U/L CK-MB (CK-2) CK-MB (CK-2) Rel Index Troponin I (0.01-0.034) ng/mL NT-Pro-B Natriuret Pep (<450) pg/mL Total Protein (6.3-8.2) g/dL Albumin (3.5-5.0) g/dL Globulin (1.7-4.1) g/dL Albumin/Globulin Ratio (1.0-2.8) Lipase (23-300) U/L Urine RBC None seen (0-5/HPF) Urine WBC 5-10/hpf H (0-5/HPF) Ur Squamous Epith Cells 1-5 /hpf (0-5/HPF) Uric Acid Crystals Few H (None) Amorphous Sediment 1+ Urine Bacteria Moderate (10-30) H (None) Urine Mucus 2+ H (Negative) Ur Culture Indicated? Specimen cultured SARS-CoV-2 (PCR) (Negative) Point of care testing: Urine Dip Bedside Urine Glucose Negative Bedside Urine Bilirubin - Negative Bedside Urine Ketone - Negative Urine Specific [place] 1.020 Bedside Urine Occult Blood - Negative Bedside Urine pH 6 Bedside Urine Protein +/- 15 Bedside Urine Urobilinogen - Negative Bedside Urine Nitrite - Negative Bedside Urine Leukocytes - Negative Esterase Imaging Data Chest x-ray: Radiologist's Impression: PROCEDURE:? XR CHEST 1V ? INDICATIONS:? suspected sepsis ? TECHNIQUE:? One view of the chest was acquired.? ? COMPARISON:? [facility], , CHEST 1 VIEW, 08/06/2016, 8:06.? [facility], , XR CHEST 2V, 06/27/2020, 7:21. ? FINDINGS:? ? Surgical changes and devices:? None.? ? Lungs and pleura:? Low lung volumes are noted. This causes a crowded appearance to the lung markings and limits evaluation.? Mild, streaky opacities are seen at the lung bases. ?There is elevation of the left hemidiaphragm. ? Mediastinum:? The cardiac contours are within normal limits. The aorta demonstrates calcification and tortuosity. ? Bones and chest wall:? No suspicious bony lesions.? Age-appropriate bony degenerative changes are seen.? Mild dextroconvex scoliotic curvature is seen. ? ? Overlying soft tissues appear unremarkable.? ? ? IMPRESSION:? Low lung volumes with likely streaky atelectasis at the lung bases. ? If clinically appropriate, a short-term followup chest series (with PA and lateral views) performed in deep inspiration is suggested for further evaluation.? ? ? Dictated by: Jayy Christian M.D. on 12/21/2020 at 10:51 ? ? Approved by: Jayy Christian M.D. on 12/21/2020 at 10:53 ? CT scan - abdomen/pelvis: Radiologist's Impression: ADDENDUMThis report includes an Addendum and supersedes previous reports for this exam. ? ? ? PROCEDURE:? CT CHEST ABD PEL W CON ? INDICATIONS:? chest pain, nausea vomiting ? TECHNIQUE:? After the administration of intravenous contrast, axial sections acquired from the supraclavicular neck to the pubic symphysis.? Coronal and sagittal reformats were performed.? For radiation dose reduction, the following was used:? automated exposure control, adjustment of mA and/or kV according to patient size.? ? COMPARISON:? ? [facility], CT, CT ABDOMEN PELVIS WO/W CON, 05/01/2019, 12:58.? [facility], CR, XR CHEST 1V, 12/21/2020, 11:09. ? FINDINGS:? Image quality:? Excellent.? ? CHEST: Lower Neck: No enlarged lymph nodes.? Thyroid: Within normal limits. Axillae: No enlarged lymph nodes. Chest Wall:? Unremarkable.? ? Lungs and Airways:? Apparent dependent atelectasis can be seen at the lung bases.? The previously seen right posterior diaphragmatic hernia is not seen. Pleura: No pneumothorax is seen.? There are small bilateral pleural effusions.? ? Heart: Heart size is normal.? No pericardial effusion. Thoracic Vessels: The aorta and pulmonary arteries demonstrate normal size.? Mediastinum and [place]: No enlarged lymph nodes.? Esophagus: No wall thickening. No hiatal hernia. ? ? ABDOMEN: Liver:? Unremarkable.? ? Gallbladder:? The gallbladder demonstrates a gallstone within its lumen.? The gallbladder is otherwise unremarkable by CT.? ? Biliary ducts:? Unremarkable.? ? Pancreas:? Unremarkable.? ? Spleen:? Unremarkable.? ? Adrenal Glands:? Generalized thickening is seen of the adrenal glands, yet without focal nodules. Kidneys and Ureters:? Unremarkable.? ? ? Stomach and Bowel:? Abnormally dilated loops of proximal small bowel can be seen, which measure up to 4 cm.? There is focal narrowing of the small bowel seen, with focal bowel wall hyperenhancement, as on series 2, image 80 to and on series 5, image 21 within the mid abdomen. There is an apparent additional transition point seen involving the right lower quadrant, as on series 2, image 72 and on series 5, image 25. The colon is decompressed.? Peritoneum:? No abnormal intraperitoneal fluid.? No free air.? ? Ventral Wall: ? No hernia.? Abdominal Nodes:? No retroperitoneal or mesenteric adenopathy by size criteria.? Vessels:? Aorta and inferior vena cava are normal in size.? ? PELVIS: Pelvic Organs:? Unremarkable.? ? Bladder:? Unremarkable.? ? Pelvic Nodes: No enlarged lymph nodes.? Miscellaneous: No inguinal hernias are seen. ? ? ? Bones:? Accentuated thoracic kyphosis is seen.? Age-appropriate bony degenerative changes are seen, which are worst at L5-S1 ? ? IMPRESSION:? Small-bowel obstruction, with 2 apparent transition points seen. ? Small bilateral pleural effusions are seen. ? Apparent dependent atelectasis. ? ? Incidental note is made of: Gallstone Generalized thickening of the adrenal glands, without focal nodules Focal L5-S1 degenerative change ? ? Dictated by: Jayy Christian M.D. on 12/21/2020 at 11:30 ? ? Approved by: Jayy Christian M.D. on 12/21/2020 at 11:38 ? ? ? ADDENDUM: ? In addition to the above findings, there is a small amount of ascites seen involving the right upper quadrant of the abdomen. ? Dictated by: Jayy Christian M.D. on 12/21/2020 at 16:39 ? ? Approved by: Jayy Christian M.D. on 12/21/2020 at 16:40 ? Addendum Dictated By: Jayy Christian MD Addendum Signed By: Addendum Cosigned By: DD/ /07/1736 TD/TT: 12/21/2008/07/1736 PROCEDURE:? CT CHEST ABD PEL W CON ? INDICATIONS:? chest pain, nausea vomiting ? TECHNIQUE:? After the administration of intravenous contrast, axial sections acquired from the supraclavicular neck to the pubic symphysis.? Coronal and sagittal reformats were performed.? For radiation dose reduction, the following was used:? automated exposure control, adjustment of mA and/or kV according to patient size.? ? COMPARISON:? ? [facility], CT, CT ABDOMEN PELVIS WO/W CON, 05/01/2019, 12:58.? [facility], CR, XR CHEST 1V, 12/21/2020, 11:09. ? FINDINGS:? Image quality:? Excellent.? ? CHEST: Lower Neck: No enlarged lymph nodes.? Thyroid: Within normal limits. Axillae: No enlarged lymph nodes. Chest Wall:? Unremarkable.? ? Lungs and Airways:? Apparent dependent atelectasis can be seen at the lung bases.? The previously seen right posterior diaphragmatic hernia is not seen. Pleura: No pneumothorax is seen.? There are small bilateral pleural effusions.? ? Heart: Heart size is normal.? No pericardial effusion. Thoracic Vessels: The aorta and pulmonary arteries demonstrate normal size.? Mediastinum and [place]: No enlarged lymph nodes.? Esophagus: No wall thickening. No hiatal hernia. ? ? ABDOMEN: Liver:? Unremarkable.? ? Gallbladder:? The gallbladder demonstrates a gallstone within its lumen.? The gallbladder is otherwise unremarkable by CT.? ? Biliary ducts:? Unremarkable.? ? Pancreas:? Unremarkable.? ? Spleen:? Unremarkable.? ? Adrenal Glands:? Generalized thickening is seen of the adrenal glands, yet without focal nodules. Kidneys and Ureters:? Unremarkable.? ? ? Stomach and Bowel:? Abnormally dilated loops of proximal small bowel can be seen, which measure up to 4 cm.? There is focal narrowing of the small bowel seen, with focal bowel wall hyperenhancement, as on series 2, image 80 to and on series 5, image 21 within the mid abdomen. There is an apparent additional transition point seen involving the right lower quadrant, as on series 2, image 72 and on series 5, image 25. The colon is decompressed.? Peritoneum:? No abnormal intraperitoneal fluid.? No free air.? ? Ventral Wall: ? No hernia.? Abdominal Nodes:? No retroperitoneal or mesenteric adenopathy by size criteria.? Vessels:? Aorta and inferior vena cava are normal in size.? ? PELVIS: Pelvic Organs:? Unremarkable.? ? Bladder:? Unremarkable.? ? Pelvic Nodes: No enlarged lymph nodes.? Miscellaneous: No inguinal hernias are seen. ? ? ? Bones:? Accentuated thoracic kyphosis is seen.? Age-appropriate bony degenerative changes are seen, which are worst at L5-S1 ? ? IMPRESSION:? Small-bowel obstruction, with 2 apparent transition points seen. ? Small bilateral pleural effusions are seen. ? Apparent dependent atelectasis. ? ? Incidental note is made of: Gallstone Generalized thickening of the adrenal glands, without focal nodules Focal L5-S1 degenerative change ? ? Dictated by: Jayy Christian M.D. on 12/21/2020 at 11:30 ? ? Approved by: Jayy Christian M.D. on 12/21/2020 at 11:38 ? US - abdomen: Radiologist's Impression: PROCEDURE: US ABDOMEN LIMITED ? INDICATIONS:? ELEVATED BILIRUBIN ? TECHNIQUE:? Real-time focused scanning was performed of the abdomen, with image documentation.? ? COMPARISON:? [facility], CT, CT CHEST ABD PEL W CON, 12/21/2020, 12:13. ? FINDINGS:? Evaluation of the liver is limited.? No focal liver lesions are seen. ? A nonmobile gallstone can be seen within the gallbladder fundus that measures up to 1.4 cm. The gallbladder wall is minimally thickened at 3.6 mm.? No specific pericholecystic fluid is seen.? The sonographic Aguilar sign is negative. ? There is no biliary dilatation, the common bile duct measures 6 mm.? ? The pancreas is not well seen, secondary to overlying bowel gas. ? A trace of right upper quadrant free fluid can be seen. ? Note is made of prominent fluid-filled bowel, which is better demonstrated on the recent CT examination. ? ? IMPRESSION:? A nonmobile gallstone can be seen within the gallbladder, with minimal gallbladder wall thickening.? No additional sonographic signs of cholecystitis can be seen. ? No biliary dilatation. ? ? Dictated by: Jayy Christian M.D. on 12/21/2020 at 13:11 ? ? Approved by: Jayy Christian M.D. on 12/21/2020 at 13:13 ? MRCP: Radiologist's Impression: PROCEDURE:? MR ABDOMEN WO CON ? INDICATIONS:? elevated bili with stones ? TECHNIQUE:? Coronal HASTE through the abdomen, axial 2-D FLASH in- and [id number], and breath-hold T2 FSE with fat saturation through the biliary system and pancreas.? Oblique coronal and axial thin-slice HASTE, radial thick-slab HASTE centered on the extrahepatic bile ducts.? ? ? Intravenous secretin:? Not requested.? ? COMPARISON:? [facility], CT, CT ABDOMEN PELVIS WO/W CON, 05/01/2019, 12:58.? [facility], US, US ABDOMEN LIMITED, 12/21/2020, 13:44.? [facility], CT, CT CHEST ABD PEL W CON, 12/21/2020, 12:13. ? FINDINGS:? Image quality:? Excellent.? ? Pancreas and biliary system:? Intra- and extra-hepatic biliary ducts are non dilated.? Pancreas is normal in morphology, without adjacent soft tissue edema.? Pancreatic duct is normal in caliber, without developmental anomalies.? Gallbladder demonstrates a gallstone within its lumen, as on series 5, image 19.? No additional MRI abnormalities of the gallbladder can be seen.? ? Other solid organs:? Liver is normal in size.? Spleen is normal in size.? There is generalized thickening seen of the adrenal glands, without focal adrenal nodules.? Both kidneys are normal in size, without hydronephrosis.? ? Nodes and vessels:? No retroperitoneal or mesenteric adenopathy by size criteria.? Aorta and inferior vena cava are normal in size.? ? Bowel and peritoneum:? Abnormally dilated loops of fluid-filled small bowel are seen that measure up to 4 cm.? Transition points are displayed on the recent CT examination.? A small amount of ascites is seen adjacent to the liver.? ? Lung bases:? Small bilateral pleural effusions and atelectasis can be seen. ? Bones and soft tissues:? No ventral hernias.? Bone marrow is of normal overall signal.? Mild levoconvex scoliotic curvature is noted.? IMPRESSION:? No biliary dilatation can be seen.? No common duct stones. ? A gallstone is seen within the gallbladder, without additional MRI abnormalities of the gallbladder. ? Small bowel obstruction.? Please see the prior CT report. ? Small amount of ascites seen adjacent to the liver. ? Small bilateral pleural effusions with basilar atelectasis. ? ? Dictated by: Jayy Christian M.D. on 12/21/2020 at 16:07 ? ? ECG Data Interpretation: Atrial fibrillation with RVR rate [address] changes MDM Narrative Medical decision making narrative: Patient is initially hypotensive and in AFib with RVR given IV fluids which improved blood pressure and heart rate as well. BNP is elevated at 2300 but currently compensated CHF not having any difficulty breathing. Patient is likely dehydrated from vomiting for 4 days. BUN creatinine are also elevated which suggest dehydration. CT does show small bowel obstruction with 2 transition points prior surgery is umbilical hernia repair. She is however found have gallstones both on ultrasound and CT with elevated bilirubin of 2.5. She needs MRCP to completely rule out common bile duct stone. MRCP does not show any common bile duct stone. Discussion with Dr. Anderson in regards to small bowel obstruction. At this time he agrees with consultation and patient needs an NG tube. Loss of discussion with family. Would prefer all conservative measures and avoid surgery at all possible coughs. They are agreeable to admission and NG tube. The patient Dr. Appiah updated patient's symptoms test results happily accepts Discharge Plan Departure Patient Disposition: Admitted As Inpatient Clinical Impression: Small bowel obstruction, Atrial fibrillation with rapid ventricular response Admit Date/Time: 12/21/20 19:26 Admit Provider: Rahul Appiah
[2020-12-22] MEDS: dilTIAZem 5 MG/ML SDV IV (07:43)
--- NOTE | 2020-12-22 09:24 | PM.PREOP ---
Pre-operative Note COVID-19 COVID-19 status: Negative Result date/Date tested (Pos, Neg/Pending): 12/20/20 Interval Note History & Physical reviewed/Exam performed by Physician: Yes Changes to H&P: No H&P completed within 30 days and has changed as indicated here:: See consult note
--- NOTE | 2020-12-22 09:25 | PM.OP.ENDO ---
Operative Date/Time/Diagnoses Date of procedure: 12/22/20 Time of procedure: 09:25 Pre-op diagnosis: Lower GI bleed Post-op diagnosis: same (Extensive sigmoid Diverticulosis. Hemorrhoids without ulceration.) Procedure & Clinicians Study performed: Colonoscopy Same procedure as scheduled: Yes Indications: Try to determine cause of lower GI bleeding Surgeon: Jeffrey Anderson Procedure Notes SCOAP/Timeout: Performed Procedure in detail: The patient is a woman who had been on Eliquis who had a lower GI bleed. She was brought for colonoscopy to try to determine the source. Because of her serious medical problems and frail condition in anesthesiologist provided her sedation(MAC) The patient was placed in the left lateral decubitus position and underwent IV sedation directed by the surgeon consisting of fentanyl and Versed. Digital exam was unremarkable. The scope was inserted and advanced through the rectum into the sigmoid, descending, transverse, and ascending colon. Patient was noted to have very extensive sigmoid diverticulosis. There was no blood in the colon. Cecum was reached identified by the ileocecal valve and the appendiceal opening. The ileocecal valve was briefly cannulated. The terminal ileum was normal in appearance. The scope was gradually brought out. No Polyps were found. The scope ultimately was retroflexed in the rectum. The appearance was remarkable for internal hemorrhoids. There was no evidence of ulceration on the however. The scope was removed and the patient tolerated the procedure well. The prep was very good. Scope withdrawal time: 6 minutes Sedation minutes: 0 (Monitored anesthesia care was provided by an anesthesiologist due to the patient's significant medical/ cardiac issues.) Findings: diverticulosis and internal hemorrhoids Specimen(s): none sent Complications: none Post-procedure Follow up: as needed Disposition: PACU
[2020-12-22] MEDS: PANTOPRAZOLE 40 MG VIAL IV (10:19)
[2020-12-22] MEDS: MORPHINE 2 MG/ML INJ IV ×2 (10:51→17:39)
--- NOTE | 2020-12-22 11:46 | PC.NURSE ---
Addendum entered by Ashlee Wen R.N. 12/22/20 13:40: @1330 X-Ray tech in room; tele A fib with HR in the 140's-160's; hospitalist notified; @ 1340 Dr. Anderson requests that NG tube stay clamped for second set of pictures, scheduled for 1730 with recontinuation or 100 mm intermittent suction following second x-rays Original Note: @ 0800 Tele A fib with HR in the 130's/140's; pt denies SOB and chest pain; this RN notified hospitalist, no new orders; @ 0900 NG suction turned off for contrast and gastrografin study; diagnostics will return in 4 hours; @ 1050 pt reports pain to abdomen and requests pain medication; IV morphine administered; BTs active, abdomen soft and tender; daughter, Janeth in room
--- NOTE | 2020-12-22 12:04 | P.PN_ITS ---
Subjective Subjective Date Patient Seen: 12/22/20 Time Patient Seen: 12:05 Interval history: 85-year-old female with a past medical history of atrial fibrillation, persistent, and difficult to control on oral anticoagulation who was admitted with an acute small-bowel obstruction. She is undergoing small- bowel follow-through today. She complained of some abdominal pain, no chest pain or shortness of breath. Exam Vital Signs (past 8 hours): - 12/22/20 08:25 12/22/20 11:01 Temperature 97.0 F L Pulse Rate 100 H Respiratory Rate 20 Blood Pressure 136/72 Pulse Oximetry 95 95 Oxygen Delivery Method Room Air Oxygen Flow Rate 0 Narrative Exam Narrative: Gen: Alert, arousable cachectic and ill appearing 85 y.o. ? female HEENT: normocephalic, atraumatic, conjunctiva clear, sclera non-icteric, NG tube in place and draining scant fluid, oral mucosa dry Neck: supple, full ROM, no JVD, trachea is midline Resp: diminished breath sounds bilateral lung bases, no wheezing. CV: tachycardic and irregularly irregular, no murmur. Abd: soft, tender in the periumbilical to right middle abdominal region. Mildly distended. Skin: no lesions or rashes, dry and intact Objective Labs Result Diagrams: 12/22/20 05:01 12/22/20 05:01 Labs: Laboratory Results - last 24 hr 12/21/20 12/21/20 12/21/20 11:15 12:25 14:04 WBC RBC Hgb Hct MCV MCH MCHC RDW Plt Count Neut % (Auto) Lymph % (Auto) [place] % (Auto) Eos % (Auto) Baso % (Auto) Neut # (Auto) Lymph # (Auto) [place] # (Auto) Eos # (Auto) Baso # (Auto) Sodium Potassium Chloride Carbon Dioxide BUN Creatinine Estimated GFR BUN/Creatinine Ratio Glucose Lactate 1.9 Calcium Magnesium Total Bilirubin Conjugated Bilirubin Unconjugated Bilirubin AST ALT Alkaline Phosphatase NT-Pro-B Natriuret Pep 2350 H Total Protein Albumin Globulin Albumin/Globulin Ratio Urine RBC Urine WBC Ur Squamous Epith Cells Uric Acid Crystals Amorphous Sediment Urine Bacteria Urine Mucus Ur Culture Indicated? SARS-CoV-2 (PCR) Negative 12/21/20 12/22/20 12/22/20 14:43 05:01 05:01 WBC 10.0 RBC 4.65 Hgb 15.6 Hct 46.6 H MCV 100.1 H MCH 33.5 MCHC 33.4 RDW 13.9 Plt Count 184 Neut % (Auto) 84.6 H Lymph % (Auto) 7.2 L [place] % (Auto) 7.8 Eos % (Auto) 0.2 L Baso % (Auto) 0.2 Neut # (Auto) 8500 H Lymph # (Auto) 700 L [place] # (Auto) 800 Eos # (Auto) 0 Baso # (Auto) 0 Sodium 139 Potassium 3.7 Chloride 111 H Carbon Dioxide 21 L BUN 48 H Creatinine 1.19 H Estimated GFR 43.0 L BUN/Creatinine Ratio 40.3 H Glucose 98 Lactate Calcium 9.5 Magnesium 1.9 Total Bilirubin 2.1 H Conjugated Bilirubin 0.0 Unconjugated Bilirubin 1.8 H AST 32 ALT 24 Alkaline Phosphatase 73 NT-Pro-B Natriuret Pep Total Protein 6.0 L Albumin 2.9 L Globulin 3.1 Albumin/Globulin Ratio 0.9 L Urine RBC None seen Urine WBC 5-10/hpf H Ur Squamous Epith Cells 1-5 /hpf Uric Acid Crystals Few H Amorphous Sediment 1+ Urine Bacteria Moderate (10-30) H Urine Mucus 2+ H Ur Culture Indicated? Specimen cultured SARS-CoV-2 (PCR) [facility] Medical History Anxiety Atrial fibrillation (~07/2016) Basal cell carcinoma Basal cell carcinoma (BCC) of left side of nose (09/21/16) Chickenpox Depression Glaucoma Hyperlipidemia Hypertension Hypothyroidism Measles Urge incontinence of urine Surgical History Hx of basal cell carcinoma excision Family History Father Diabetes mellitus Mother No problems noted. Grandfather No problems noted. Grandfather Diabetes mellitus Social History number of children: 3 household members: children caregiver/support person: Yes (Daughter lives just down the block and helps care for her mother.) Smoking Status: Never smoker second hand exposure: No alcohol intake: never substance use type: does not use Assessment & Plan Assessment & Plan narrative: Eva Iniguez will be admitted for further management of a small-bowel obstruction.? 1. Acute small-bowel obstruction, present on admission * NG tube was placed it in the patient in the ED * Dr. Anderson is consulting on the patient and started small bowel follow through today. * He has discussed possible surgical intervention though it is possible family may not opt to do anything * She was started on IV Zosyn by Dr. Anderson as well as fluids * continue NPO 2. Chronic atrial fibrillation anticoagulated on rivaroxaban, present on admission * Due to possible surgical intervention we are holding her rivaroxaban * She normally takes oral diltiazem and metoprolol. Converted to standing metoprolol and diltiazem. May need dilt gtt for rate control. 3. Hypothyroidism, chronic * Consideration to be made to administer IV levothyroxine if the patient is going to be NPO much longer than a week and that dose would be 25 mcg IV 4. Anxiety, chronic * Holding buspirone and sertraline due to patient being NPO VTE Prophylaxis: Wells risk score 1.5[X] Bilateral SCDs Patient is admitted to the inpatient service FEN: IV fluids: NS at 125 ml/hour, diet: NPO, labs: CBC, C/BMP, liver enzymes, Mag, Consultants Dr. Anderson, General Surgery care and involvement in the patient?s care is appreciated. Code status: DNR/DNI daughterJaneth as surrogate and POA. Time Spent With Patient Critical Care time: I spent a total of [] minutes of critical care time on this patient's care today; this time is exclusive of procedural time. Quality VTE Deep Vein Thrombosis/Pulmonary Embolism Present on Admission: No
[2020-12-22] MEDS: PIPERACILLIN/TAZO 3.375 GM in SODIUM CHLORIDE 0.9% 100 ML 25 ML IV ×2 (12:22→20:29)
[2020-12-22] MEDS: dilTIAZem 5 MG/ML SDV 10 MG IV ×2 (14:12→18:13)
--- NOTE | 2020-12-22 15:14 | CM.DANOTE ---
Patient is an 85 yo female who was admitted on 12/21/20 for Vomiting/not eating. Pt has [employer] [facility] AD[facility] for insurance and her PCP is Dr. Xavier Dawson. EMR was reviewed. Per MD, pt admitted with SBO and to have NG tube and SBFT today towards determining possible surgery vs comfort if SBO cannot be managed conservatively. Pt DNR/DNI and with AFIB RVR. SW met bedside with pt and adult Dtr/DPOA Janeth and explained role. Pt was finally sleeping soundly and had contrast for SBFT but awaiting further imaging around 1700 to determine if it can be managed conservatively. Dtr confirms that pt still lives at home with pt's disabled adult son Nima and pt mostly is Nimas primary caregiver. Pt is mostly independent with ADL's at baseline but does not drive. Dtr Janeth lives close by and provides daily assist to them. Dtr confirms that pt has a hx of [facility] back in August and felt that they were very helpful with strengthening pt but not currently open to services. Dtr confirms that if surgery recommended, pt will likely decline surgery and then likely need for Hospice at home but Dtr is hopeful that SBFT will show pt only needs conservative tx. POC unclear at this time until further imaging complete this evening. Plan: SW to follow closely tomorrow with Surgeon recommendations based on imaging this evening towards determining tx vs comfort. SW to continue to coordinate d/c planning with pt and adult dtr/DPOA Janeth. LAMONT Vazquez Discharge Planning/Care Management CM Discharge Assessment Start: 12/22/20 15:12 Freq: Status: Active Protocol: Document 12/22/20 15:12 BF (Rec: 12/22/20 15:14 [id number]) Discharge Planning Assessment Assigned Exhibit Preparator LAMONT Bertrand DPMANDY/Assigned Designee Name Dtr Janeth Iniguez Contact Information [phone] Advance Directives? Yes Advance Directives on File Yes History Provided By Patient,Family Member,Medical Record Has Patient been admitted in last 30 No days? Prior Living Arrangements House Household Members children Type of transporation used prior to Relies on Others admit Comment Home with disabled son and has local supportive Dtr nearby Independent with ADL's Yes Is patient alert and oriented? Yes Needs Assistance With Managing Medications,Home Chores / Shopping Caregiver for Another Yes: adult disabled son at home Comment hx of [facility] Comment Pending SBFT and surgery vs comfort Barriers to Discharge No Discharge Plan Home Community Services Hospice Transportation Arrangement Dtr bedside and can transport if safe for home by POV pending medical needs Additional Comment Pending SBFT results and possible recommendation of surg vs comfort Review Status In Process Please Provide Date Initial DC 12/22/20 Assessment Was Performed Next Review Type Continued Stay Review
--- NOTE | 2020-12-22 17:30 | DI.RAD.S_ITS ---
PROCEDURE: XR ABDOMEN 1V INDICATIONS: sbft/gastroview challenge continued. TECHNIQUE: One view of the abdomen acquired. COMPARISON: [facility], CR, XR CHEST 1V, 12/21/2020, 11:09. [facility], MR, MR ABDOMEN WO CON, 12/21/2020, 16:29. [facility], US, US ABDOMEN LIMITED, 12/21/2020, 13:44. [facility], CT, CT CHEST ABD PEL W CON, 12/21/2020, 12:13. [facility], CR, XR GASTROGRAFIN CHALLENGE, 12/22/2020, 13:21. FINDINGS: Surgical changes and devices: None. Bowel: On these images, there is further distal motion of the contrast, yet is largely seen within the proximal small bowel and there is a prominent volume contrast remaining within the stomach. Small bowel loops measure up to 5.5 cm. Soft tissues: No suspicious abdominal calcifications. Visualized solid organ contours appear normal in size. Bones: No suspicious bony lesions. Age-appropriate bony degenerative changes are seen. IMPRESSION: These imaging findings are highly suspicious for continued small-bowel obstruction. If further plain film evaluation is contemplated, please lie this patient on the right side to allow the contrast to flow out of the stomach and into the small bowel. Dictated by: Jayy Christian M.D. on 12/22/2020 at 16:57 Approved by: Jayy Christian M.D. on 12/22/2020 at 16:59
[2020-12-22] MEDS: ONDANSETRON 4 MG/2 ML INJ IV (17:39)
--- NOTE | 2020-12-22 18:25 | P.PN_ITS ---
Subjective Subjective Date Patient Seen: 12/22/20 Interval history: The patient was seen early this morning and a small-bowel follow-through ordered and is seen again this evening following that test. She actually has been comfortable most of the day. She feels pretty good she said right now. Exam Vital Signs (past 8 hours): - 12/22/20 11:01 12/22/20 12:30 12/22/20 14:12 Temperature 97.4 F L Pulse Rate 117 H 126 H Respiratory Rate 20 Blood Pressure 111/81 Pulse Oximetry 95 93 12/22/20 15:48 12/22/20 18:13 Temperature 97.4 F L Pulse Rate 93 H 140 H Respiratory Rate 20 Blood Pressure 129/101 H 119/82 Pulse Oximetry 94 Oxygen Delivery Method Room Air Oxygen Flow Rate 0 Narrative Exam Narrative: Heart rate has been variable blood pressure has been actually pretty good. Abdomen is distended soft. Tender in the right abdomen. Localized and not diffuse. Objective Labs Result Diagrams: 12/22/20 05:01 12/22/20 05:01 Labs: Laboratory Results - last 24 hr 12/22/20 12/22/20 05:01 05:01 WBC 10.0 RBC 4.65 Hgb 15.6 Hct 46.6 H MCV 100.1 H MCH 33.5 MCHC 33.4 RDW 13.9 Plt Count 184 Neut % (Auto) 84.6 H Lymph % (Auto) 7.2 L [place] % (Auto) 7.8 Eos % (Auto) 0.2 L Baso % (Auto) 0.2 Neut # (Auto) 8500 H Lymph # (Auto) 700 L [place] # (Auto) 800 Eos # (Auto) 0 Baso # (Auto) 0 Sodium 139 Potassium 3.7 Chloride 111 H Carbon Dioxide 21 L BUN 48 H Creatinine 1.19 H Estimated GFR 43.0 L BUN/Creatinine Ratio 40.3 H Glucose 98 Calcium 9.5 Magnesium 1.9 Total Bilirubin 2.1 H Conjugated Bilirubin 0.0 Unconjugated Bilirubin 1.8 H AST 32 ALT 24 Alkaline Phosphatase 73 Total Protein 6.0 L Albumin 2.9 L Globulin 3.1 Albumin/Globulin Ratio 0.9 L PFSH Medical History Anxiety Atrial fibrillation (~07/2016) Basal cell carcinoma Basal cell carcinoma (BCC) of left side of nose (09/21/16) Chickenpox Depression Glaucoma Hyperlipidemia Hypertension Hypothyroidism Measles Urge incontinence of urine Surgical History Hx of basal cell carcinoma excision Family History Father Diabetes mellitus Mother No problems noted. Grandfather No problems noted. Grandfather Diabetes mellitus Social History number of children: 3 household members: children caregiver/support person: Yes (Daughter lives just down the block and helps care for her mother.) Smoking Status: Never smoker second hand exposure: No alcohol intake: never substance use type: does not use Assessment & Plan Assessment and plan (1) Small bowel obstruction: Status: Acute Assessment & Plan narrative: I spoke with the patient to his coherent. She does not want an operation and she just wants to go home. She says she has Had a good run. I spoke with the daughter in her presence and explained that we would withdrawal the fluids when she went home. Our goal would be to keep her comfortable. Whether or not she had an NG would depend upon how she does in the next couple days. I expected her to have a fairly short life expectancy once we withdrew fluids and stop suppressing her heart rate with IV medication. Her daughter is aware of this. I suggested that her brother be brought sooner rather than later while she Is still coherent. we will need to make arrangements so that the patient can be discharged home. Hospice would be ideal, If that process does not take too long. At this time I will sign off her care. Should there be further need of surgical services please let us know. Time Spent With Patient Critical Care time: I spent a total of [] minutes of critical care time on this patient's care today; this time is exclusive of procedural time. Quality VTE Deep Vein Thrombosis/Pulmonary Embolism Present on Admission: No
[2020-12-23] VITALS (9 sets, daily range): BP systolic 106–140; BP diastolic 62–94; PULSE 80–109; RESP 18; TEMP 36.1–36.2; O2SAT 93–95
[2020-12-23] MEDS: dilTIAZem 5 MG/ML SDV 10 MG IV ×3 (01:38→18:37)
[2020-12-23] MEDS: METOPROLOL TARTRATE 5 MG/5 ML INJ IV ×3 (03:47→21:39)
[2020-12-23] MEDS: SODIUM CHLORIDE 0.9% FLUSH 10 ML IV ×2 (03:48→09:37)
[2020-12-23] MEDS: PIPERACILLIN/TAZO 3.375 GM in SODIUM CHLORIDE 0.9% 100 ML 25 ML IV (03:58)
[2020-12-23 05:28] LABS: Add Manual Diff / Slide Review NO; Basophils Absolute Auto 0 /uL (0-100); Basophils Percent Auto 0.1 % (0-2); Eosinophils Absolute Auto 100 /uL (0-450); Eosinophils Percent Auto 0.5 % (2-4); Hematocrit 50.1 % (36-46); Hemoglobin 16.6 g/dL (12.0-16.0); Lymphocytes Absolute Auto 800 /uL (1100-4500); Lymphocytes Percent Auto 7.2 % (25-40); Mean Corpuscular HGB Conc 33.1 % (30-36); Mean Corpuscular Volume 99.7 fL (80-100); Monocytes Absolute Auto 1000 /uL (0-900); Monocytes Percent Auto 9.3 % (3-14); Neutrophils Absolute Auto 9200 /uL (1500-7000); Neutrophils Percent Auto 82.9 % (50-75); Platelet Count 212 X10^3/uL (150-400); Red Blood Cell Count 5.03 X10^6/uL (4.0-5.2); Red Cell Distribution Width 13.8 % (11.6-14.8); White Blood Cell Count 11.1 X10^3/uL (4.5-11.0)
[2020-12-23 05:35] LABS: Alanine Aminotransferase 25 IU/L (<35); Albumin 3.1 g/dL (3.5-5.0); Alkaline Phosphatase 71 U/L (38-126); Aspartate Aminotransferase 30 IU/L (14-36); BUN Creatinine Ratio 48.5 (6-22); Bilirubin Total 2.3 mg/dL (0.2-1.3); Bilirubin Unconjugated 1.7 mg/dL (0.0-1.1); Blood Urea Nitrogen 50 mg/dL (7-17); Calcium 9.8 mg/dL (8.4-10.2); Carbon Dioxide 24 mmol/L (22-32); Chloride 112 mmol/L (98-107); Estimated Glomerular Filt Rate 50.8 mL/min (>60); Globulin 3.2 g/dL (1.7-4.1); Glucose 111 mg/dL (80-110); HEMOLYSIS 27 (0-50); Magnesium 2.1 mg/dL (1.6-2.3); Potassium 3.8 mmol/L (3.4-5.1); Sodium 142 mmol/L (137-145); Total Protein 6.3 g/dL (6.3-8.2)
[2020-12-23] MEDS: PANTOPRAZOLE 40 MG VIAL IV (09:35)
--- NOTE | 2020-12-23 11:46 | CM.DPC ---
DCP Cont: Patient has elected to not want surgery. The plan at this time is to go home with hospice services with NG tube. Confirmed in team rounds that patient will need NG tube at discharge, so her stomach can be emptied. Met with daughter, Janeth, who has been at bedside. She was wanting to know the timeline of her discharge, so she can let her brother in [place] know. Patient has been at home with her disabled son prior to admission. Let daughter know that this case assembler will contact [facility] to get a time frame of admission. Gave daughter, Janeth, the [facility] brochure, and explained some of hospice services. Daughter lives a few houses away, and is aware that someone will need to be with her, her or her brother. Called Denise at [facility] and gave her patient's information, letting her know that patient will need to discharge with her NG tube. Denise mentioned, they can accomidate, will just need to get equipment ordered. She indicated, they may be able to see patient as soon as . Faxed over the referral to [facility] indicating that daughter, Janeth, is point of contact. Daughter has been at bedside. Faxed face sheet, H&P, latest progress notes, labs, and medication list. Denise at [facility] is expecting the referral. P: DCP to continue to follow. Plan is for home with [facility]. Inés Mayfield RN/Commercial Plumber
--- NOTE | 2020-12-23 14:14 | P.PN_ITS ---
Subjective Subjective Date Patient Seen: 12/23/20 Time Patient Seen: 14:14 Interval history: 85 year old female with PMH of afib admitted with SBO. Not likely to resolve at this time, patient did not want surgery, elects for hospice. Hospice unlikely to be set up with home NG tubing until . Goal for treatments currently per patient and family is to get her home. Continuing IV scheduled dilt and metorpolol for control of HR, can have Clear liquids for comfort as well. Continue TKO fluids and antibiotics to increase likelihood of being able to return home. Exam Vital Signs (past 8 hours): - 12/23/20 07:00 12/23/20 09:00 12/23/20 09:31 Temperature 97.0 F L Pulse Rate 80 Respiratory Rate 18 Blood Pressure 140/62 Pulse Oximetry 93 94 12/23/20 10:24 12/23/20 10:56 12/23/20 12:04 Temperature Pulse Rate 108 H 102 H Respiratory Rate Blood Pressure 106/63 132/94 H Pulse Oximetry 94 Oxygen Delivery Method Room Air Oxygen Flow Rate 0 Narrative Exam Narrative: Gen: awake, alert, but cachectic and ill appearing 85 y.o. ? female. No acute distress. HEENT: normocephalic, atraumatic, conjunctiva clear, sclera non-icteric, NG tube in place and draining scant fluid, oral mucosa dry Neck: supple, full ROM, no JVD, trachea is midline Resp: diminished breath sounds bilateral lung bases, no wheezing. CV: tachycardic and irregularly irregular, no murmur. Abd: soft, tender in the periumbilical to right middle abdominal region. mild distension. Skin: no lesions or rashes, dry and intact Objective Labs Result Diagrams: 12/23/20 05:12 12/23/20 05:12 Labs: Laboratory Results - last 24 hr 12/23/20 12/23/20 05:12 05:12 WBC 11.1 H RBC 5.03 Hgb 16.6 H Hct 50.1 H MCV 99.7 MCH 33.0 MCHC 33.1 RDW 13.8 Plt Count 212 Neut % (Auto) 82.9 H Lymph % (Auto) 7.2 L [place] % (Auto) 9.3 Eos % (Auto) 0.5 L Baso % (Auto) 0.1 Neut # (Auto) 9200 H Lymph # (Auto) 800 L [place] # (Auto) 1000 H Eos # (Auto) 100 Baso # (Auto) 0 Sodium 142 Potassium 3.8 Chloride 112 H Carbon Dioxide 24 BUN 50 H Creatinine 1.03 Estimated GFR 50.8 L BUN/Creatinine Ratio 48.5 H Glucose 111 H Calcium 9.8 Magnesium 2.1 Total Bilirubin 2.3 H Conjugated Bilirubin 0.0 Unconjugated Bilirubin 1.7 H AST 30 ALT 25 Alkaline Phosphatase 71 Total Protein 6.3 Albumin 3.1 L Globulin 3.2 Albumin/Globulin Ratio 1.0 PFSH Medical History Anxiety Atrial fibrillation (~07/2016) Basal cell carcinoma Basal cell carcinoma (BCC) of left side of nose (09/21/16) Chickenpox Depression Glaucoma Hyperlipidemia Hypertension Hypothyroidism Measles Urge incontinence of urine Surgical History Hx of basal cell carcinoma excision Family History Father Diabetes mellitus Mother No problems noted. Grandfather No problems noted. Grandfather Diabetes mellitus Social History number of children: 3 household members: children caregiver/support person: Yes (Daughter lives just down the block and helps care for her mother.) Smoking Status: Never smoker second hand exposure: No alcohol intake: never substance use type: does not use Assessment & Plan Assessment & Plan narrative: 85 year old female with PMH of afib admitted with SBO. Not likely to resolve at this time, patient did not want surgery, elects for hospice. 1. Acute small-bowel obstruction, present on admission * NG tube was placed it in the patient in the ED * Dr. Anderson consultation appreciated, patient did ultimately decide against surgery. Wants to discharge home on hospice. Goal moving forward is to get her home. * clear liquids for comfort * continue IV and SL morphine for pain control 2. Chronic atrial fibrillation anticoagulated on rivaroxaban, present on admission * no need for AC at this time due to goals of care. * continue rate control given difficult to control afib with RVR for comfort measures and to increase likelihood of discharge home. 3. Hypothyroidism, chronic 4. Anxiety, chronic * Holding buspirone and sertraline due to patient being NPO * can have prn ativan. 5. Acute cystitis - discussed and family would like treatment with continued antibiotics. Will narrow based on cultures. continue cefazolin treatment total x3 days or until discharge per family. Code: DNR DVT: hold for comfort measures Dispo: Discharge home on hospice, currently plans to open , hopefully sooner. Time Spent With Patient Critical Care time: I spent a total of [] minutes of critical care time on this patient's care today; this time is exclusive of procedural time. Quality VTE Deep Vein Thrombosis/Pulmonary Embolism Present on Admission: No MIPS - Admit I confirm the patient?s Advance Care Plan is present, Code status is documented, Surrogate decision maker is in patient?s record [If Yes, STOP here]: Yes
[2020-12-23] MEDS: CEFAZOLIN 1 GM VIAL IV ×2 (14:32→21:38)
--- NOTE | 2020-12-23 14:59 | PC.NURSE ---
Patient a/o x 3, denies pain at this time. Using bedpan. R AC IV bleeding, removed. L FA PIV remains intact, fluids running TKO after talking with Td. Patients VSS, tolerating IV BP medications. Lungs CTA, diminished, 94% on RA. IV abx administered. BT hypoactive in RUQ, absent in other quadrants. Daughter remains bedside.
[2020-12-23] MEDS: LACTATED RINGERS 500 ML 21 ML IV (18:26)
[2020-12-24] VITALS (14 sets, daily range): BP systolic 116–134; BP diastolic 65–95; PULSE 84–120; RESP 16–18; TEMP 36.2–37.1; O2SAT 91–95
[2020-12-24] MEDS: dilTIAZem 5 MG/ML SDV 10 MG IV ×5 (00:08→23:57)
[2020-12-24] MEDS: LACTATED RINGERS 500 ML 21 ML IV (01:50)
[2020-12-24] MEDS: METOPROLOL TARTRATE 5 MG/5 ML INJ IV ×4 (02:30→20:29)
[2020-12-24] MEDS: CEFAZOLIN 1 GM VIAL IV ×3 (06:24→22:42)
[2020-12-24] MEDS: PANTOPRAZOLE 40 MG VIAL IV (09:20)
[2020-12-24] MEDS: SODIUM CHLORIDE 0.9% FLUSH 10 ML IV (09:28)
--- NOTE | 2020-12-24 12:57 | CM.DPC ---
Addendum entered by Inés Mayfield R.N. 12/24/20 15:31: Spoke to Paulina, and equipment for patient will be delivered in the am. They have contacted daughterJaneth, who has been at bedside. They want patient to be home by noon, as they are setting up suction for NG tube. Paulina asked if pm nursing, and am, can continue to do teaching for daughterJaneth, with NG tube. Asked romero Brunson, nurse to do so. BLS form is completed and signed, and asking Maryanne to call and set up transportation for mushroom picker at approximately 11:30. Daughter, Janeth, is aware of time of mushroom picker. Original Note: DCP Cont: Spoke to Paulina at [facility], for she is working on getting nursing to come out and get equipment ordered. Met with daughterJaneth, who has been at bedside. She is concerned, that if she leaves on Wednesday, they may be working on her road, and unable to get her home, since there is road work occurring in this area. She has not yet heard from hospice, but let her know that she will be contacted. Discussed mode of transportation, and daughter is aware that BLS will be the safest plan for patient, due to weakness, and NG tube. She is not concerned about cost. Called Paulina back to see if she has a time yet as to when nursing can come out and equipment for NG tube can be delivered. She indicated that she does not have a day and time as of yet. Asked her to call this habitat conservation planner back when she has a time available. P: DCP to continue to follow, and will work on getting patient home on [facility] the with NG tube. Inés Mayfield RN/Comptometrist
--- NOTE | 2020-12-24 15:21 | PC.NURSE ---
Comfort: Pt denies need for pain medication. Later her dtr reported that he mom was on various medications and asked if she could have ativan. MD made aware and he will order her something. Pt is tolerating IV meds w/out problems, bp prior to last dose of metoprolol was 127/77, pulse 114. Denies any c/p.
--- NOTE | 2020-12-24 15:23 | P.PN_ITS ---
Subjective Subjective Date Patient Seen: 12/24/20 Time Patient Seen: 08:00 Interval history: Today she is saying her pain is moderately well controlled. She did try some slight liquid for comfort, but did not feel well. She is passing gas, she is currently not nauseous/vomiting. She has NG tube in place to suction. Exam Vital Signs (past 8 hours): - 12/24/20 07:34 12/24/20 09:20 12/24/20 09:27 Temperature Pulse Rate 120 H 101 H Respiratory Rate Blood Pressure 123/95 H 123/75 Pulse Oximetry 94 12/24/20 10:00 12/24/20 11:30 Temperature 98.7 F Pulse Rate 114 H Respiratory Rate 18 Blood Pressure 126/77 Pulse Oximetry 94 95 Oxygen Delivery Method Room Air Oxygen Flow Rate 0 Narrative Exam Narrative: Gen: awake, alert, but cachectic and ill appearing 85 y.o. female. No acute distress. HEENT: normocephalic, atraumatic, conjunctiva clear, sclera non-icteric, NG tube in place and draining scant fluid, oral mucosa dry Neck: supple, full ROM, no JVD, trachea is midline Resp: diminished breath sounds bilateral lung bases, no wheezing. CV: tachycardic and irregularly irregular, no murmur. Abd: soft, tender in the periumbilical to right middle abdominal region. mild distension. Skin: no lesions or rashes, dry and intact Objective Labs Result Diagrams: 12/23/20 05:12 12/23/20 05:12 [facility] Medical History Anxiety Atrial fibrillation (~07/2016) Basal cell carcinoma Basal cell carcinoma (BCC) of left side of nose (09/21/16) Chickenpox Depression Glaucoma Hyperlipidemia Hypertension Hypothyroidism Measles Urge incontinence of urine Surgical History Hx of basal cell carcinoma excision Family History Father Diabetes mellitus Mother No problems noted. Grandfather No problems noted. Grandfather Diabetes mellitus Social History number of children: 3 household members: children caregiver/support person: Yes (Daughter lives just down the block and helps car e for her mother.) Smoking Status: Never smoker second hand exposure: No alcohol intake: never substance use type: does not use Assessment & Plan Assessment & Plan narrative: 85 year old female with PMH of afib admitted with SBO. Not likely to resolve at this time, patient did not want surgery, elects for hospice. 1. Acute small-bowel obstruction, present on admission NG tube was placed it in the patient in the ED Dr. Anderson consultation appreciated, patient did ultimately decide against surgery. Wants to discharge home on hospice. Goal moving forward is to get her home. clear liquids for comfort continue IV and SL morphine for pain control 2. Chronic atrial fibrillation anticoagulated on rivaroxaban, present on admission no need for AC at this time due to goals of care. continue rate control given difficult to control afib with RVR for comfort measures and to increase likelihood of discharge home. 3. Hypothyroidism, chronic 4. Anxiety, chronic Holding buspirone and sertraline due to patient being NPO can have prn ativan. 5. Acute cystitis - discussed and family would like treatment with continued antibiotics. Will narrow based on cultures. continue cefazolin treatment total x3 days or until discharge per family. Code: DNR DVT: hold for comfort measures Dispo: Discharge home on hospice, currently plans for tomorrow Time Spent With Patient Critical Care time: I spent a total of [] minutes of critical care time on this patient's care today; this time is exclusive of procedural time. Quality VTE Deep Vein Thrombosis/Pulmonary Embolism Present on Admission: No
[2020-12-24] MEDS: LORazepam 2 MG/ML INJ 0.5 MG IV (15:52)
[2020-12-24] MEDS: MORPHINE 2 MG/ML INJ IV (18:56)
--- NOTE | 2020-12-24 20:59 | PC.NURSE ---
Pt has been comfortable most of the shift. Patient alert to self and situation. C/o anxiety, lorazepam iv given. Pt also received 2 mg of MS ivp. IV currently at TKO due to receiving all meds iv meds. Teaching done with the daughter in regards NGT.
[2020-12-25] MEDS: LACTATED RINGERS 500 ML 21 ML IV (02:23)
[2020-12-25 06:42] VITALS: BP 150/89; PULSE 115
[2020-12-25] MEDS: dilTIAZem 5 MG/ML SDV 10 MG IV (06:42)
[2020-12-25] MEDS: CEFAZOLIN 1 GM VIAL IV (06:42)
[2020-12-25 07:00] VITALS: BP 140/89; PULSE 95; RESP 14; TEMP 35.9; O2SAT 93
--- NOTE | 2020-12-25 08:17 | CM.DPNOTE ---
Called [facility] per Elza, and spoke to Rosalba Cm to schedule BLS transport pt for 1130 to home address. She said they need a POLST. I communicated this info to Elza. Maryanne Moseley CM Asst.
[2020-12-25 08:25] VITALS: O2SAT 98
--- NOTE | 2020-12-25 09:08 | P.DS_ITS ---
History of Present Illness History of Present Illness Chief complaint: vomitting/ not eating or drinking Narrative: Per Nazanin Liao: Soila Ayala is 85-year-old female with a history of chronic atrial fibrillation anticoagulated on rivaroxaban, hypothyroidism and anxiety presents with a 4 day history to the emergency department with anorexia and vomiting.? History use provided by the daughter because the patient is asleep and not responding to my questions.? Daughter thought she was having the flu.? She has been sick since Wednesday night and then threw up green vomitus and the daughter decided this was not the flu and brought her in.? Her last BM was 3 days ago.? Daughter states she has not taken any of her meds in 4 days.? She has been generally very weak and not interested in eating.? Daughter denies a history of fever or chills, abdominal pain, chest pain, shortness of breath, difficulties urinating, or constipation. Multiple imaging studies were ordered in the emergency department, most significant finding was a small-bowel obstruction, ?Abnormally dilated loops of fluid-filled small bowel are seen that measure up to 4 cm.? Transition points are displayed on the recent CT examination.? A small amount of ascites is seen adjacent to the liver.Patient is afebrile, blood pressure 128/53, heart rate 93, it was in the 140s on admission to the floor, respiratory rate 14, oxygen saturation is 96% on room air, she weighs 66.5 kg with a BMI of 27.6.? Her WBC is elevated at 16.6, hemoglobin 17.1, hematocrit 51.1, platelet count 222, she has a left shift of 14,200, sodium 138, potassium 3.5, chloride 105, serum bicarb 23, creatinine 1.18, BUN 44, with a GFR of 43.4 which is new, glucose 138, initial lactate was 2.8 and is now 1.9, calcium 10.6, T bili was 2.5, AST 40, proBNP is 23 50, UA did indicate bacteria which will be cultured, and COVID- 19 PCR is negative. Discharge Providers Provider Date of admission: 12/21/20 19:26 Discharge Date: 12/25/20 Primary care physician: Xavier Dawson MD Consults: 12/21/20 23:14 Consult to Physician Routine Comment: Consulting Provider: Jeffrey Anderson Reason for consultation: SBO Has provider been notified: Yes 12/22/20 18:31 Consult to ELECTRONIC ASSEMBLER GROUP LEADER - Cemetery Keeper Routine Comment: Pt declines operative intervention.Request comfort ELECTRONIC ASSEMBLER GROUP LEADER Consult: End of Life/Goal Care Dis 12/22/20 18:32 Consult to Discharge Planning Routine Comment: desires home with hospice or comfort care. Discharge provider: Cyrus Medellin MD Summary Hospital Course Discharge Diagnosis: 1. Acute small bowel obstruction 2. Chronic atrial fibrillation 3. Hypothyrodisim 4. Anxiety, chronic 5. Acute cystitis Hospital Course: Ms. Iniguez was admitted abdominal pain. She was found to have an SBO. She underwent a small bowel follow through with continued obstruction noted. Discussion was had with physician team and patient and family and she did not want to undergo surgery and decided on discharge with hospice. She was disc harged with NG tube in place and with pain and nausea control. Her oral medications were held as she was unable to tolerate anything oral given her obstruction. Exam Vital Signs (past 8 hours): Oxygen Delivery Method Room Air Oxygen Flow Rate 0 Narrative Exam Narrative: Gen: awake, alert, but cachectic and ill appearing 85 y.o. ? female. No acute distress. HEENT: normocephalic, atraumatic, conjunctiva clear, sclera non-icteric, NG tube in place and draining scant fluid, oral mucosa dry Neck: supple, full ROM, no JVD, trachea is midline Resp: diminished breath sounds bilateral lung bases, no wheezing. CV: tachycardic and irregularly irregular, no murmur. Abd: soft, tender in the periumbilical to right middle abdominal region. mild distension. Skin: no lesions or rashes, dry and intact Objective Labs Result Diagrams: 12/23/20 05:12 12/23/20 05:12 [facility] Medical History Anxiety Atrial fibrillation (~07/2016) Basal cell carcinoma Basal cell carcinoma (BCC) of left side of nose (09/21/16) Chickenpox Depression Glaucoma Hyperlipidemia Hypertension Hypothyroidism Measles Urge incontinence of urine Surgical History Hx of basal cell carcinoma excision Family History Father Diabetes mellitus Mother No problems noted. Grandfather No problems noted. Grandfather Diabetes mellitus Social History number of children: 3 household members: children caregiver/support person: Yes (Daughter lives just down the block and helps care for her mother.) Smoking Status: Never smoker second hand exposure: No alcohol intake: never substance use type: does not use Discharge Plan Discharge Plan Patient Disposition: Hospice - Home Provider Discharge Comment: Ms. Iniguez came in with abdominal pain. She was found to have a small bowel obstruction. She declined to have surgery. She elected to be discharged with hospice. Discharge orders & Medications Prescriptions: New morphine concentrate 10 mg/0.5 mL Syringe 10 mg PO Q1HR PRN (Reason: Pain, Severe (7-10)) Qty: 20 RF: 0 ondansetron HCl [Zofran] 4 mg tablet 4 mg PO Q8H PRN (Reason: nausea and vomiting) Qty: 20 RF: 0 Continued latanoprost 0.005 % drops 1 drp EYE-BOTH DAILY RF: 0 levothyroxine [Synthroid] 50 mcg tablet 50 mcg PO QDAY Qty: 90 RF: 3 buspirone 5 mg tablet 5 mg PO BID Qty: 180 RF: 3 lorazepam [Ativan] 0.5 mg tablet 0.25 mg PO BID PRN (Reason: anxiety) Qty: 15 RF: 0 sertraline 100 mg tablet 100 mg PO Q DAY Qty: 90 RF: 3 chlordiazepoxide-clidinium [Librax (with clidinium)] 5-2.5 mg capsule 1 cap PO TID Qty: 90 RF: 4 Discontinued diltiazem HCl [Cartia XT] 180 mg capsule,extended release 24hr 180 mg PO DAILY Qty: 90 RF: 3 oxybutynin chloride 5 mg tablet 2.5 mg PO BID Qty: 90 RF: 3 metoprolol succinate 50 mg tablet extended release 24 hr 75 mg PO BID RF: 0 rivaroxaban 15 mg tablet 20 mg PO QPM RF: 0 Medication counseling provided by Pharmacist: Yes Pharmacist Comment: Confirmed with patient's daughter that hospice will assist with setting up the patient's medication regimen. Follow up/Referrals: Xavier Dawson MD [Primary Care Provider] - Diet/Activity/Treatments Diet: Nothing by Mouth Visit Report/Discharge Packet Instructions: Morphine Discharge Data Primary Care Provider: Xavier Dawson VTE Deep Vein Thrombosis/Pulmonary Embolism Present on Admission: No MIPS - DC The patient has current or prior documentation of left ventricular ejection fraction (LVEF) less than 40%, or moderate or severely depressed left ventricul ar systolic function.: No
[2020-12-25] MEDS: PANTOPRAZOLE 40 MG VIAL IV (09:13)
[2020-12-25] MEDS: SODIUM CHLORIDE 0.9% FLUSH 10 ML IV (09:14)
[2020-12-25] MEDS: METOPROLOL TARTRATE 5 MG/5 ML INJ IV (09:14)
--- NOTE | 2020-12-25 10:10 | PC.NURSE ---
Patients NG tube putting out bile/blood in tube. She is at low intermittent suction. Alert and oriented x3, Patients bowel tones are hypoactive. Daughter in room, patient is leaving [facility] at 1130 to go home with hospice.
--- NOTE | 2020-12-25 10:48 | CM.DPC ---
DCP Discharge Home with Hospice Per MD, pt is medically stable to d/c home with Hospice today and Hospice to open pt to services after d/c. SW called [facility] and confirmed that DME is to be delivered this morning and they are aware pt will d/c around 1130 and they can open pt to service with their RN likely around 1400. ROHAN Maryanne kindly called [facility] and scheduled transport for around 1130 and BLS form with POLST on pt chart and scanned into EMR. DOC updated RN, MD, technical services assistant, and [facility]. SW called pt's Dtr/DPOA Janeth and confirmed above and she states DME was already delivered and she is still agreeable with d/c plan for today. Plan: Patient to d/c home today via [facility] around 1130 to home with [facility] to open around 1400. LAMONT Vazquez
== END 2020-12-25 11:27 | disposition hospice, home (50) | DRG 389 ==
LOC: ED 19:05 → AC 19:27
PROVIDERS: Nurse Practitioner Family; Admitting Provider Internal Medicine; Emergency Provider Emergency Medicine; PCP Student in an Organized Health Care Education/Training Program; Referring Provider Emergency Medicine; Visit Provider Internal Medicine
DX: K56.609 Unspecified intestinal obstruction, unspecified as to partial versus complete obstruction (principal); I48.19 Other persistent atrial fibrillation; Z79.01 Long term (current) use of anticoagulants; E03.9 Hypothyroidism, unspecified; Z51.5 Encounter for palliative care; F41.9 Anxiety disorder, unspecified; N30.90 Cystitis, unspecified without hematuria; Z20.822 Contact with and (suspected) exposure to COVID-19
CPT/HCPCS: 36415; 71045; 71260; 74018; 74177; 74181; 76705; 80048; 80053; 80076; 81003; 81015; 82550; 83605; 83690; 83735; 83880; 84484; 85025; 85730; 87040; 87077; 87086; 87186; 87635; 93005; 94760; 96361; 96365; 96366; 96375; 99231; 99232; 99284; 99285; C9803; C9113; J0690; J2060; J2270; J2405; J2543; Q9967